=== PATIENT | male | born 1960 | race Caucasian/White ===

== ENCOUNTER 2016-10-31 03:37 | Emergency (ER) | payer OTHER ==
[2016-10-31 03:59] LABS: BILIRUBIN,URINE NEGATIVE (NEGATIVE); PH,URINE 5.5 PH (5.0-7.5)
[2016-10-31] MEDS ORDERED: SODIUM CHLORIDE 0.9% 1,000 ML IV ONE ×2 (03:59→04:00)
[2016-10-31] MEDS ORDERED: HYDROmorphone 1 MG/ML SYRINGE IVP STA (03:59)
[2016-10-31] MEDS ORDERED: ONDANSETRON 4 MG/2 ML VIAL IVP STA (03:59)
[2016-10-31] MEDS ORDERED: ONDANSETRON 4 MG/2 ML VIAL ONE (04:00)
[2016-10-31] MEDS ORDERED: HYDROmorphone 1 MG/ML SYRINGE ONE (04:00)
[2016-10-31 04:03] LABS: UA w/ MICROSCOPIC CHARGE YES
--- NOTE | 2016-10-31 04:05 | ED Physician Documentation ---
History of Present Illness - Stated complaint Stated Complaint: L SIDE PX - Chief complaint Chief Complaint: Abd Pain - Additonal information Additional information: 56-year-old male with a history of coronary disease, hypertension, and diabetes who presents with acute onset of left-sided abdominal pain earlier this evening. 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 He is finally woken up by the pain atApproximately 2 AM. The pain was in the left lower quadrant and would radiate to the left genital area. He noticed that his urine was quite dark at this time and had some difficulty in urinating. He has no prior history of nephro or ureteral lithiasis. He denies any fever or chills. There is no complaints of chest pain, shortness of breath, leg pain or swelling. Review of systems: For pertinent positive and negatives in the review of systems please see history of present illness. Otherwise all other systems have been reviewed and are negative. Dragon disclaimer: Parts of this medical record were created using voice recognition technology. Because of the inherent limitations of this system occasional same sounding word substitutions do occur and persist despite proofreading. Please read the document for context. Review of Systems Ten Systems: 10 systems reviewed and negative Constitutional: denies: Fever, Chills GI: reports: Abdominal Pain. denies: Abdominal Swelling, Nausea, Vomiting, Constipation, Diarrhea, Hematemesis : reports: Hesitancy, Hematuria PD PAST MEDICAL HISTORY - Past Medical History Past Medical History: Yes Cardiovascular: Hypertension, MS Endocrine/Autoimmune: Type 2 diabetes - Past Surgical History Past Surgical History: Yes Cardiovascular: CABG, Coronary stent - Present Medications Home Medications: Ambulatory Orders Medication Instructions Recorded Confirmed Fluticasone [Flonase] 1 spray INH BID 12/20/12 10/31/16 Lisinopril [Zestril] 2.5 mg PO DAILY 12/20/12 10/31/16 Loratadine [Claritin] 10 mg PO DAILY 12/20/12 10/31/16 Meloxicam 7.5 mg PO DAILY 12/20/12 10/31/16 Metformin HCl [Metformin HCl ER] 500 mg PO BID 12/20/12 10/31/16 Ranitidine HCl 150 mg PO BID 12/20/12 10/31/16 glipiZIDE [Glucotrol] 10 mg PO 0730 /04/13 07/16/17 Ondansetron Odt [Zofran] 4 mg TL Q6H PRN #10 tablet 10/31/16 Tamsulosin HCl [Flomax] 0.4 mg PO DAILY #7 cap.er.24h 10/31/16 oxyCODONE/ACET 5/325 [Percocet 5 1 each PO Q4-6H PRN #16 tablet 10/31/16 mg/325 mg] - Allergies Allergies/Adverse Reactions: Allergies Allergy/AdvReac Type Severity Reaction Status Date / Time No Known Drug Allergies Allergy Verified 10/31/16 03:43 - Social History Does the pt smoke?: No Smoking Status: Never smoker Does the pt drink ETOH?: No Does the pt have substance abuse?: No - Immunizations Immunizations are current?: Yes - POLST Patient has POLST: No PD ED PE NORMAL - General General: Alert and oriented X 3, No acute distress, Well developed/nourished - HEENT HEENT: Atraumatic, PERRL, EOMI - Neck Neck: No bony TTP - Cardiac Cardiac: RRR, No gallop - Respiratory Respiratory: No respiratory distress, Clear bilaterally - Abdomen Abdomen: Normal bowel sounds, Soft, Non tender, Non distended - Derm Derm: Normal color, Warm and dry - Extremities Extremities: No deformity, No tenderness to palpate, Normal ROM s pain - Neuro Neuro: Alert and oriented X 3, 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, No motor deficit, No sensory deficit - Psych Psych: Normal mood, Normal affect Results - Vitals Vitals: Vital Signs - 24 hr 10/31/16 10/31/16 10/31/16 03:40 05:21 05:25 Temperature 36.5 C 36.5 C Heart Rate 83 83 Respiratory 16 16 Rate Blood Pressure 148/99 H 148/99 H 126/79 O2 Saturation 97 97 Oxygen O2 Source Room air - Labs Labs: Laboratory Tests 10/31/16 10/31/16 10/31/16 03:45 04:03 04:03 WBC 10.1 RBC 4.22 L Hgb 12.9 L Hct 37.7 L MCV 89.4 MCH 30.5 MCHC 34.1 RDW 13.6 Plt Count 196 MPV 9.3 Neut # 7.0 H Lymph # 2.2 Carson # 0.7 Eos # 0.1 Baso # 0.0 Absolute Nucleated RBC 0.00 Nucleated RBCs 0.0 Sodium 138 Potassium 3.6 Chloride 103 Carbon Dioxide 26 Anion Gap 9.0 BUN 16 Creatinine 1.0 Estimated GFR (MDRD) 77 L Glucose 162 H Calcium 8.8 Urine Color DARK YELLOW Urine Clarity CLOUDY Urine pH 5.5 Ur Specific Shannon >=1.030 H Urine Protein 30 H Urine Glucose (UA) NEGATIVE Urine Ketones NEGATIVE Urine Occult Blood LARGE H Urine Nitrite NEGATIVE Urine Bilirubin NEGATIVE Urine Urobilinogen 0.2 (NORMAL) Ur Leukocyte Esterase NEGATIVE Urine RBC TNTC H Urine WBC 0-3 Ur Squamous Epith Cells RARE Squamous Urine Bacteria None Seen Urine Mucus Few Strands Ur Microscopic Review INDICATED Urine Culture Comments NOT INDICATED PD MEDICAL DECISION MAKING - ED course ED course: Patient is a 56-year-old man who has hypertension, diabetes and coronary disease who presented with a complaint of left-sided flank pain acutely. On examination he had pain but really no tenderness and also had hematuria so from the onset we suspected ureterolithiasis. He was given IV fluids pain and nausea medications as well as Flomax. CT scan shows a large stone at the left UVJ with hydronephrosis. He also has a couple other incidental stones in the left kidney. Clinically the patient is doing great. He has absolutely no pain at this point. He was advised of the size of the stone and also of or question of whether he will passed a stone or not. It is a large stone but is already worked its way almost into his bladder so he may be able to pass it on his own or perhaps not. He was given a copy and disc of the CT scan. He will be given pain and nausea medications as well as oral Flomax. We have given him a couple referrals to urologist in the [place] area and he understands that should he get worse and be unable to obtain a urologist that he should return here and we will assist him. He was advised to watch for signs and symptoms of infection including fever and if this should occur he should return to the emergency department immediately. Disposition: To home Clinical impression: 1. Ureterolithiasis left-sided hydronephrosis 7 mm at left UVJ Departure - Departure Disposition: 01 Home, Self Care Clinical Impression: Ureterolithiasis Condition: Good Instructions: ED Strainer Urine, ED Stone Renal W Colic Follow-Up: Casimiro Mixon MD [Physician No Access] - Casimiro Mixon MD [Physician No Access] - Prescriptions: Tamsulosin HCl [Flomax] 0.4 mg PO DAILY #7 cap.er.24h oxyCODONE/ACET 5/325 [Percocet 5 mg/325 mg] 1 each PO Q4-6H PRN #16 tablet PRN Reason: Pain Ondansetron Odt [Zofran] 4 mg TL Q6H PRN #10 tablet PRN Reason: Nausea / Vomiting Comments: Continue to stay well-hydrated. You have a large 7 mm stone on the left side. Is very close see her bladder and may or may not passOn its own. Please strain your urine to check for a passed stone. If you get worse please return otherwise we have given you a couple numbers for urologic follow-up
[2016-10-31 04:15] LABS: BASOPHILS % (AUTO) 0.4 %; EOSINOPHILS # (AUTO) 0.1 10^3/uL (0.0-0.7); HCT - HEMATOCRIT 37.7 % (42.0-52.0); HGB - HEMOGLOBIN 12.9 g/dL (14.0-18.0); LYMPHOCYTES # (AUTO) 2.2 10^3/uL (1.5-3.5); LYMPHOCYTES % (AUTO) 21.9 %; MEAN CORPUSCULAR HEMOGLOBIN 30.5 pg (27.0-31.0); MEAN CORPUSCULAR HGB CONC 34.1 g/dL (32.0-36.0); MEAN CORPUSCULAR VOLUME 89.4 fL (80.0-94.0); MEAN PLATELET VOLUME 9.3 fL (7.4-11.4); MONOCYTES # (AUTO) 0.7 10^3/uL (0.0-1.0); MONOCYTES % (AUTO) 6.8 %; NEUTROPHILS % (AUTO) 69.9 %; RED BLOOD COUNT 4.22 10^6/uL (4.70-6.10); RED CELL DISTRIBUTION WIDTH 13.6 % (12.0-15.0); UNCORRECTED WHITE BLOOD COUNT 10.1 x10^3/uL; WHITE BLOOD COUNT 10.1 x10^3/uL (4.8-10.8)
[2016-10-31 04:24] LABS: UR CULTURE IF IND NOT INDICATED; WBC,URINE 0-3 /HPF (0-3)
[2016-10-31 04:31] LABS: CALCIUM 8.8 mg/dL (8.5-10.3); POTASSIUM 3.6 mmol/L (3.5-5.0)
--- NOTE | 2016-10-31 04:36 | CT Preliminary Report ---
Exam: CT Abdomen/Pelvis W/O IMPRESSION: 1. Severe left hydroureteronephrosis due to an obstructing stone at the left UVJ measuring 7.2 mm. 2. Additional large lobulated stone within the left lower kidney measuring 16.4 x 12.9 x 11.9 mm. Thi s stone measures 1080 Hounsfield units in density. 3. Appendix is normal. No bowel obstruction. Mild distal diverticulosis without evidence of diverticu litis. [facility] SITE ID: [id number]
--- NOTE | 2016-10-31 04:39 | CT Report ---
EXAM: CT ABDOMEN AND PELVIS (CT KUB) EXAM DATE: 10/31/2016 04:28 AM. CLINICAL HISTORY: Left sided abdominal pain. Sudden onset. Difficulty urinating. COMPARISONS: None. TECHNIQUE: Routine axial helical CT imaging was performed through the abdomen and pelvis without IV c ontrast. Reconstructions: Coronal and sagittal. In accordance with CT protocol optimization, one or more of the following dose reduction techniques w ere utilized for this exam: automated exposure control, adjustment of mA and/or KV based on patient s ize, or use of iterative reconstructive technique. FINDINGS: Right Kidney/Ureter: No stones. No hydronephrosis or hydroureter. Multiple right-sided peripelvic cys ts are present. No definite renal mass within the confines of a non-contrast exam. Left Kidney/Ureter: There is a large lobe with a distal within the left lower kidney measuring 16.4 x 12.9 x 11.9 mm (image 78 series 3). This stone measures 1080 Hounsfield units in density. Dear left hydroureteronephrosis is present, due to an obstructing left UVJ stone measuring 7.2 mm (image 138 se yeimi 3). No definite renal mass within the confines of a non-contrast exam. Abdominal Solid Organs: Abdominal parenchymal organs are without significant abnormality within the c onfines of a noncontrast exam. Bowel: No evidence of bowel obstruction. Appendix: Normal. Lymph Nodes: No definite pathologic lymphadenopathy. Fluid: No significant ascites. Vasculature: Normal caliber aorta. Pelvis: No bladder stones. Visualized pelvic organs are without significant abnormality within the co nfines of a noncontrast exam. Bones: No definite suspicious bony lesions demonstrated. There is moderate multilevel degenerative ch angie within the spine. Lower Chest: No significant lung base consolidation or effusion. Median sternotomy. IMPRESSION: 1. Severe left hydroureteronephrosis due to an obstructing stone at the left UVJ measuring 7.2 mm. 2. Additional large lobulated stone within the left lower kidney measuring 16.4 x 12.9 x 11.9 mm. Thi s stone measures 1080 Hounsfield units in density. 3. Appendix is normal. No bowel obstruction. Mild distal diverticulosis without evidence of diverticu litis. [facility] Referring Provider Line: [phone] SITE ID: [id number]
[2016-10-31] MEDS ORDERED: KETOROLAC 30 MG/ML VIAL IVP STA (05:00)
[2016-10-31] MEDS ORDERED: KETOROLAC 30 MG/ML VIAL ONE (05:04)
[2016-10-31] MEDS ORDERED: TAMSULOSIN 0.4 MG CAPSULE PO STA (05:14)
[2016-10-31] MEDS ORDERED: TAMSULOSIN 0.4 MG CAPSULE ONE (05:18)
[2016-10-31 07:04] VITALS: BP 129/82
== END 2016-10-31 07:17 | disposition home or self-care (01) ==
LOC: ED 03:37
DX: N13.2 Hydronephrosis with renal and ureteral calculous obstruction (principal); I10 Essential (primary) hypertension; E11.9 Type 2 diabetes mellitus without complications; Z79.84 Long term (current) use of oral hypoglycemic drugs; I25.10 Atherosclerotic heart disease of native coronary artery without angina pectoris; I25.2 Old myocardial infarction; Z95.1 Presence of aortocoronary bypass graft; Z95.5 Presence of coronary angioplasty implant and graft
CPT/HCPCS: 36415; 74176; 80048; 81001; 85025; 96361; 96374; 96375; 99284; A9270; J1170; 81003; 87086

== ENCOUNTER 2016-11-14 18:57 | Emergency (ER) | payer OTHER ==
[2016-11-14] MEDS ORDERED: SODIUM CHLORIDE 0.9% 1,000 ML IV ONE (19:06)
[2016-11-14] MEDS ORDERED: ONDANSETRON 4 MG/2 ML VIAL IVP STA (19:06)
[2016-11-14] MEDS ORDERED: HYDROmorphone 1 MG/ML SYRINGE IVP STA (19:06)
[2016-11-14] MEDS ORDERED: KETOROLAC 60 MG/2 ML VIAL IVP STA (19:06)
--- NOTE | 2016-11-14 19:08 | ED Physician Documentation ---
PD HPI ABD PAIN - Stated complaint Stated Complaint: KIDNEY STONES - Chief complaint Chief Complaint: Abd Pain - History obtained from History obtained from: Patient - History of Present Illness Timing - onset: Other (He was seen here on the 16 of this month and diagnosed with renal colic, he had a 7.6 mm stone in the left ureter which he says past and he has not had pain until yesterday again, there were other left infrarenal stones. Pain is in the left flank radiating to the left groin and he is mildly nauseous and feels like he cannot sit down. Because the pain was gone he did not follow up with urologist, also the [facility] was quite busy and unable to provide him with a referral he says.) Review of Systems Constitutional: denies: Fever, Chills GI: reports: Nausea. denies: Vomiting : reports: Frequency. denies: Dysuria Musculoskeletal: denies: Neck pain, Back pain PD PAST MEDICAL HISTORY - Past Medical History Cardiovascular: Hypertension, ID Endocrine/Autoimmune: Type 2 diabetes - Past Surgical History Past Surgical History: Yes Cardiovascular: CABG, Coronary stent - Present Medications Home Medications: Ambulatory Orders Medication Instructions Recorded Confirmed Fluticasone [Flonase] 1 spray INH BID 12/20/12 11/14/16 Lisinopril [Zestril] 2.5 mg PO DAILY 12/20/12 11/14/16 Loratadine [Claritin] 10 mg PO DAILY 12/20/12 11/14/16 Meloxicam 7.5 mg PO DAILY 12/20/12 11/14/16 Metformin HCl [Metformin HCl ER] 500 mg PO BID 12/20/12 11/14/16 Ranitidine HCl 150 mg PO BID 12/20/12 11/14/16 glipiZIDE [Glucotrol] 10 mg PO 30 12/20/12 11/14/16 Ondansetron Odt [Zofran] 4 mg TL Q6H PRN #10 tablet 10/31/16 11/14/16 Tamsulosin HCl [Flomax] 0.4 mg PO DAILY #7 cap.er.24h 10/31/16 11/14/16 oxyCODONE/ACET 5/325 [Percocet 5 1 each PO Q4-6H PRN #16 tablet 10/31/16 mg/325 mg] Nitroglycerin [Nitromist] 1 spray PRN PRN 11/14/16 11/14/16 Oxycodone HCl/Acetaminophen 1 - 2 tab PO Q4H PRN #15 tablet 11/14/16 [Percocet 5-325 mg Tablet] - Allergies Allergies/Adverse Reactions: Allergies Allergy/AdvReac Type Severity Reaction Status Date / Time No Known Drug Allergies Allergy Verified 10/31/16 03:43 - Social History Does the pt smoke?: No Smoking Status: Never smoker Does the pt drink ETOH?: No Does the pt have substance abuse?: No - Immunizations Immunizations are current?: Yes - POLST Patient has POLST: No PD ED PE NORMAL - Vitals Vital signs reviewed: Yes (Hypertensive) - General General: Alert and oriented X 3, Other (Pacing, uncomfortable) - Abdomen Abdomen: Soft, Non tender - Back Back: No CVA TTP, No spinal TTP - Neuro Neuro: Alert and oriented X 3, Normal speech - Psych Psych: Normal mood, Normal affect Results - Vitals Vitals: Vital Signs - 24 hr 11/14/16 19:00 Temperature 36.8 C Heart Rate 99 Respiratory 20 Rate Blood Pressure 177/106 H O2 Saturation 97 Oxygen O2 Source Room air - Labs Labs: Laboratory Tests 11/14/16 11/14/16 11/14/16 19:09 19:35 19:35 WBC 13.5 H RBC 4.23 L Hgb 13.1 L Hct 38.6 L MCV 91.2 MCH 31.0 MCHC 34.0 RDW 13.2 Plt Count 230 MPV 9.9 Neut # 10.9 H Lymph # 1.6 Bracken # 0.8 Eos # 0.1 Baso # 0.1 Absolute Nucleated RBC 0.00 Nucleated RBCs 0.0 Sodium 139 Potassium 4.1 Chloride 108 Carbon Dioxide 23 Anion Gap 8.0 BUN 15 Creatinine 1.2 Estimated GFR (MDRD) 63 L Glucose 207 H Calcium 8.9 Urine Color YELLOW Urine Clarity CLEAR Urine pH 5.5 Ur Specific Mertens >=1.030 H Urine Protein NEGATIVE Urine Glucose (UA) 100 H Urine Ketones NEGATIVE Urine Occult Blood LARGE H Urine Nitrite NEGATIVE Urine Bilirubin NEGATIVE Urine Urobilinogen 0.2 (NORMAL) Ur Leukocyte Esterase NEGATIVE Urine RBC 11-25 H Urine WBC 0-3 Ur Squamous Epith Cells FEW Squamous Urine Bacteria None Seen Ur Microscopic Review INDICATED Urine Culture Comments NOT INDICATED PD MEDICAL DECISION MAKING - ED course ED course: 56-year-old gentleman with known renal colic presents with exacerbation of same , diagnosis is not in question given classic history and recent CT findings of same.Pain was completely gone after single round of medications here. Departure - Departure Disposition: 01 Home, Self Care Clinical Impression: Ureterolithiasis Condition: Good Record reviewed to determine appropriate education?: Yes Instructions: ED Stone Renal W Colic Prescriptions: Oxycodone HCl/Acetaminophen [Percocet 5-325 mg Tablet] 1 - 2 tab PO Q4H PRN #15 tablet PRN Reason: Pain Comments: Talk with your primary care physician tomorrow about her urologic referral. Return if worse. Your blood pressure was elevated today on check into the emergency department. This does not mean that you have hypertension, it is a common phenomenon to come to the emergency department and have elevated blood pressure. I recommend that she see her primary care physician within the week to have it rechecked when you are feeling better. Do not drink or drive while taking narcotic pain medication. Note that many narcotic pain relievers also contain Tylenol/acetaminophen. Please ensure that your total dose of acetaminophen from all sources does not exceed 3 g (3000 mg) per day. You may get constipated while on this medication. Take a stool softener such as Colace twice a day while you are on it. Also add an [id number] laxative such as senna or MiraLAX on any day that you do not have a bowel movement. If you received a narcotic pain medication or sedative while in the emergency department, do not drive for the next 24 hours.
[2016-11-14 19:15] LABS: BILIRUBIN,URINE NEGATIVE (NEGATIVE); PH,URINE 5.5 PH (5.0-7.5)
[2016-11-14 19:26] LABS: UA w/ MICROSCOPIC CHARGE YES
[2016-11-14 19:27] LABS: WBC,URINE 0-3 /HPF (0-3)
[2016-11-14 19:28] LABS: UR CULTURE IF IND NOT INDICATED
[2016-11-14] MEDS ORDERED: ONDANSETRON 4 MG/2 ML VIAL ONE (19:39)
[2016-11-14] MEDS ORDERED: HYDROmorphone 1 MG/ML SYRINGE ONE (19:39)
[2016-11-14] MEDS ORDERED: KETOROLAC 30 MG/ML VIAL ONE (19:39)
[2016-11-14 19:46] LABS: BASOPHILS # (AUTO) 0.1 10^3/uL (0.0-0.1); BASOPHILS % (AUTO) 0.5 %; EOSINOPHILS # (AUTO) 0.1 10^3/uL (0.0-0.7); EOSINOPHILS % (AUTO) 0.8 %; HCT - HEMATOCRIT 38.6 % (42.0-52.0); HGB - HEMOGLOBIN 13.1 g/dL (14.0-18.0); LYMPHOCYTES # (AUTO) 1.6 10^3/uL (1.5-3.5); LYMPHOCYTES % (AUTO) 11.9 %; MEAN CORPUSCULAR VOLUME 91.2 fL (80.0-94.0); MEAN PLATELET VOLUME 9.9 fL (7.4-11.4); MONOCYTES # (AUTO) 0.8 10^3/uL (0.0-1.0); MONOCYTES % (AUTO) 5.6 %; NEUTROPHILS # (AUTO) 10.9 10^3/uL (1.5-6.6); NEUTROPHILS % (AUTO) 81.2 %; RED BLOOD COUNT 4.23 10^6/uL (4.70-6.10); RED CELL DISTRIBUTION WIDTH 13.2 % (12.0-15.0); UNCORRECTED WHITE BLOOD COUNT 13.5 x10^3/uL; WHITE BLOOD COUNT 13.5 x10^3/uL (4.8-10.8)
[2016-11-14 19:54] LABS: CALCIUM 8.9 mg/dL (8.5-10.3); CREATININE 1.2 mg/dL (0.6-1.2); POTASSIUM 4.1 mmol/L (3.5-5.0)
[2016-11-14] MEDS ORDERED: oxyCODONE/ACET 5/325 Prepack 4 PO STA (20:06)
[2016-11-14] MEDS ORDERED: oxyCODONE/ACET 5/325 Prepack 4 PO ONE (20:15)
[2016-11-14 20:41] VITALS: BP 126/80
== END 2016-11-14 20:48 | disposition home or self-care (01) ==
LOC: ED 18:57
DX: N20.1 Calculus of ureter (principal); I10 Essential (primary) hypertension; I25.2 Old myocardial infarction; E11.9 Type 2 diabetes mellitus without complications; Z95.1 Presence of aortocoronary bypass graft; Z95.5 Presence of coronary angioplasty implant and graft; Z79.84 Long term (current) use of oral hypoglycemic drugs
CPT/HCPCS: 36415; 80048; 81001; 85025; 96374; 96375; 99284; J1170; 81003; 87086

== ENCOUNTER 2016-11-22 13:09 | Outpatient (CLI) | payer OTHER | END 2016-11-22 13:10 | disposition home or self-care (01) | LOC: SC 13:09 | PROVIDERS: ATTEND Nurse Practitioner Family | DX: G47.33 Obstructive sleep apnea (adult) (pediatric) (principal) | CPT/HCPCS: 99212; 99214 ==

== ENCOUNTER 2016-12-11 14:24 | Outpatient (CLI) | payer OTHER ==
--- NOTE | 2016-12-11 22:13 | Ultrasound Report ---
EXAM: RENAL ULTRASOUND EXAM DATE: 12/11/2016 03:34 p.m. CLINICAL HISTORY: Renal calculi. COMPARISON: 10/31/2016. TECHNIQUE: Real-time scanning was performed with static images obtained. FINDINGS: Right Kidney: 12 x 5.6 x 6 cm. Multiple right parapelvic cysts. No renal mass, stones or hydronephros is. Left Kidney: 12.6 x 6.7 x 6 cm. Moderate left hydronephrosis is noted. No renal stones noted. No jelani l mass. Bladder: Left ureteral jet not seen. Normal right ureteral jet. The prevoid bladder volume was 45 cc. The postvoid bladder volume was 0.75 cc. Twinkle artifact in the left pelvis near the bladder could represent the patient's distal left ureter al stone. This measures up to 1.1 cm. Finding is best seen on the prevoid imaging. No stone in the bl adder. IMPRESSION: 1. Left ureteral jet not seen. Normal right ureteral jet. 1.1 cm echogenic focus in the left pelvis n ear the bladder could represent a ureteral stone. 2. At least moderate left hydronephrosis. No left renal stone. No left renal mass. 3. No right renal stone, mass or hydronephrosis. Persistent parapelvic cysts. [facility] Referring Provider Line: [phone] SITE ID: [id number]
== END 2016-12-11 14:25 | disposition home or self-care (01) ==
LOC: DI 14:24
PROVIDERS: ATTEND Physician Assistant
DX: N20.0 Calculus of kidney (principal); N13.30 Unspecified hydronephrosis
CPT/HCPCS: 76770

== ENCOUNTER 2017-01-19 22:20 | Emergency (ER) | payer OTHER ==
--- NOTE | 2017-01-19 22:35 | ED Physician Documentation ---
PD MANI HEENT - Stated complaint Stated Complaint: EAR PX - Chief complaint Chief Complaint: Heent - History obtained from History obtained from: Patient - History of Present Illness Timing - onset: How many weeks ago (04/19) Timing - duration: Weeks (04/19) Timing - details: Gradual onset, Still present (he had left facial pain from ear area to lip/nose abruptly stopping at midline. No rash. Does have feeling of pain left neck and behind left ear with adenopathy left ear area. Seen by PMD and Dx with possible shingles (was 5 days after onset without rash, but character of it is very shingles-like). Patient says he was improved while on the antiviral. Finished those 2 days ago and is having the pain intermittently again. He also noted some left chest pain this afternoon for 1-2 hours. He says he has had VT in the past and his symptoms were chest pain to left neck/face, so is worried about heart process.), Waxing and waning Location: Left ear, Other (left face intermittent burning aching pain) Associated symptoms: Swollen nodes (left preauricular). No: Fever, Congestion, Facial swelling Recently seen: Clinic (7 days ago) Review of Systems Constitutional: reports: Myalgias. denies: Fever, Chills Nose: denies: Rhinorrhea / runny nose, Congestion Throat: denies: Sore throat Respiratory: denies: Cough GI: denies: Nausea, Vomiting, Diarrhea Skin: denies: Rash, Lesions Neurologic: denies: Focal weakness, Numbness, Headache PD PAST MEDICAL HISTORY - Past Medical History Cardiovascular: Hypertension, VT Neuro: None Endocrine/Autoimmune: Type 2 diabetes - Past Surgical History Past Surgical History: Yes Cardiovascular: CABG, Coronary stent - Present Medications Home Medications: Ambulatory Orders Medication Instructions Recorded Confirmed Fluticasone [Flonase] 1 spray INH BID 12/20/12 01/19/17 Lisinopril [Zestril] 2.5 mg PO DAILY 12/20/12 01/19/17 Loratadine [Claritin] 10 mg PO DAILY 12/20/12 01/19/17 Meloxicam 7.5 mg PO DAILY 12/20/12 01/19/17 Metformin HCl [Metformin HCl ER] 500 mg PO BID 12/20/12 01/19/17 Ranitidine HCl 150 mg PO BID 12/20/12 01/19/17 glipiZIDE [Glucotrol] 10 mg PO 0730 12/20/12 01/19/17 Ondansetron Odt [Zofran] 4 mg TL Q6H PRN #10 tablet 10/31/16 01/19/17 Tamsulosin HCl [Flomax] 0.4 mg PO DAILY #7 cap.er.24h 10/31/16 01/19/17 oxyCODONE/ACET 5/325 [Percocet 5 1 each PO Q4-6H PRN #16 tablet 10/31/16 mg/325 mg] Nitroglycerin [Nitromist] 1 spray PRN PRN 11/14/16 01/19/17 Oxycodone HCl/Acetaminophen 1 - 2 tab PO Q4H PRN #15 tablet 11/14/16 01/19/17 [Percocet 5-325 mg Tablet] Acyclovir 400 mg PO 5XD #25 tablet 01/19/17 Dexamethasone [Decadron] 4 mg PO DAILY #5 tablet 01/19/17 - Allergies Allergies/Adverse Reactions: Allergies Allergy/AdvReac Type Severity Reaction Status Date / Time No Known Drug Allergies Allergy Verified 01/19/17 22:30 - Social History Does the pt smoke?: No Smoking Status: Never smoker Does the pt drink ETOH?: No Does the pt have substance abuse?: No - Family History Family history: reports: Non contributory - Immunizations Immunizations are current?: Yes - POLST Patient has POLST: No PD ED PE NORMAL - Vitals Vital signs reviewed: Yes - General General: Alert and oriented X 3, No acute distress, Well developed/nourished - HEENT HEENT: PERRL, Ears normal, Pharynx benign, Dentition benign - Neck Neck: Supple, no meningeal sign, No adenopathy - Cardiac Cardiac: RRR, No murmur - Respiratory Respiratory: Clear bilaterally - Abdomen Abdomen: Soft, Non tender - Derm Derm: Normal color, Warm and dry - Extremities Extremities: No tenderness to palpate, No edema, No calf tenderness / cord - Neuro Neuro: Alert and oriented X 3, 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 No: ST elevation c/w ischemia, ST depression - Labs Labs: Laboratory Tests 01/19/17 01/19/17 01/19/17 22:54 22:54 22:54 WBC 7.6 RBC 4.20 L Hgb 13.0 L Hct 37.8 L MCV 90.1 MCH 31.0 MCHC 34.4 RDW 13.5 Plt Count 231 MPV 9.3 Neut # 4.1 Lymph # 2.6 Tyrrell # 0.7 Eos # 0.1 Baso # 0.0 Absolute Nucleated RBC 0.01 Nucleated RBC % 0.1 ESR 8 Sodium 138 Potassium 4.1 Chloride 103 Carbon Dioxide 26 Anion Gap 9.0 BUN 15 Creatinine 1.1 Estimated GFR (MDRD) 69 L Glucose 164 H Glycated Hemoglobin Estim Average Glucose Calcium 9.4 Total Bilirubin 0.7 AST 22 ALT 25 Alkaline Phosphatase 66 Troponin I Total Protein 7.2 Albumin 4.3 Globulin 2.9 Albumin/Globulin Ratio 1.5 Lipase 30 01/19/17 01/19/17 22:54 22:54 WBC RBC Hgb Hct MCV MCH MCHC RDW Plt Count MPV Neut # Lymph # Tyrrell # Eos # Baso # Absolute Nucleated RBC Nucleated RBC % ESR Sodium Potassium Chloride Carbon Dioxide Anion Gap BUN Creatinine Estimated GFR (MDRD) Glucose Glycated Hemoglobin 6.6 H Estim Average Glucose 143 H Calcium Total Bilirubin AST ALT Alkaline Phosphatase Troponin I < 0.04 Total Protein Albumin Globulin Albumin/Globulin Ratio Lipase PD MEDICAL DECISION MAKING - ED course Complexity details: reviewed results, considered differential (character and location of pain seems c/w neuritis, so consider shingles without rash. Had improved while on antiviral. Consider another course of antiviral along with steroid (he says his sugars area usually okay). The chest pressure today is not present here in ED. Can get ECG and Troponin to evaluate for AMI. ), d/w patient Departure - Departure Disposition: 01 Home, Self Care Clinical Impression: Facial pain, acute Condition: Stable Record reviewed to determine appropriate education?: Yes Follow-Up: KATRINA RILEY MD [Primary Care Provider] - Prescriptions: Acyclovir 400 mg PO 5XD #25 tablet Dexamethasone [Decadron] 4 mg PO DAILY #5 tablet Comments: Your EKG and troponin are normal so no signs of heart attack going on. The character of the facial pain sound like a shingles type pain in the did not always get a rash with it. Since it improved while on the antiviral and now back again, I would repeat the antiviral medication for 5 more days and also combined with an anti-inflammatory. Use Tylenol or ibuprofen if needed for pain. Continue other usual medications. His sugars will likely elevate some while on the steroid anti-inflammatory but should resume to normal once you are done. Recheck with your primary care if not improving over the next few days.
[2017-01-19] MEDS: ACETAMINOPHEN 325 MG TABLET PO STA (22:53)
[2017-01-19] MEDS: ASPIRIN CHEW 81 MG TABLET PO STA (22:53)
[2017-01-19] MEDS ORDERED: ASPIRIN CHEW 81 MG TABLET ONE (22:55)
[2017-01-19] MEDS ORDERED: ACETAMINOPHEN 325 MG TABLET PO ONE (22:55)
[2017-01-19 23:06] LABS: BASOPHILS % (AUTO) 0.6 %; EOSINOPHILS # (AUTO) 0.1 10^3/uL (0.0-0.7); EOSINOPHILS % (AUTO) 1.7 %; HCT - HEMATOCRIT 37.8 % (42.0-52.0); LYMPHOCYTES # (AUTO) 2.6 10^3/uL (1.5-3.5); LYMPHOCYTES % (AUTO) 34.3 %; MEAN CORPUSCULAR HGB CONC 34.4 g/dL (32.0-36.0); MEAN CORPUSCULAR VOLUME 90.1 fL (80.0-94.0); MEAN PLATELET VOLUME 9.3 fL (7.4-11.4); MONOCYTES # (AUTO) 0.7 10^3/uL (0.0-1.0); MONOCYTES % (AUTO) 9.6 %; NEUTROPHILS # (AUTO) 4.1 10^3/uL (1.5-6.6); NEUTROPHILS % (AUTO) 53.8 %; NUCLEATED RED BLOOD CELLS AUTO 0.1 /100WBC; RED CELL DISTRIBUTION WIDTH 13.5 % (12.0-15.0); UNCORRECTED WHITE BLOOD COUNT 7.6 x10^3/uL; WHITE BLOOD COUNT 7.6 x10^3/uL (4.8-10.8)
[2017-01-19 23:17] LABS: ALBUMIN/GLOBULIN RATIO 1.5 (1.0-2.2); BILIRUBIN,TOTAL 0.7 mg/dL (0.2-1.0); CALCIUM 9.4 mg/dL (8.5-10.3); CREATININE 1.1 mg/dL (0.6-1.2); POTASSIUM 4.1 mmol/L (3.5-5.0); TOTAL PROTEIN 7.2 g/dL (6.7-8.2)
[2017-01-19 23:19] LABS: HEMOGLOBIN A1C 0.7 g/dL
[2017-01-19] MEDS: DEXAMETHASONE 10 MG/ML VIAL PO STA (23:47)
[2017-01-19] MEDS: ACYCLOVIR 200 MG CAPSULE PO STA (23:47)
[2017-01-19] MEDS ORDERED: ACYCLOVIR 200 MG CAPSULE PO ONE (23:50)
[2017-01-19] MEDS ORDERED: DEXAMETHASONE 10 MG/ML VIAL ONE (23:50)
[2017-01-19 23:54] VITALS: BP 169/79
== END 2017-01-19 23:54 | disposition home or self-care (01) ==
LOC: ED 22:20
DX: G50.1 Atypical facial pain (principal); R94.31 Abnormal electrocardiogram [ECG] [EKG]; I10 Essential (primary) hypertension; I25.2 Old myocardial infarction; E11.9 Type 2 diabetes mellitus without complications; Z79.84 Long term (current) use of oral hypoglycemic drugs; Z95.1 Presence of aortocoronary bypass graft; Z95.5 Presence of coronary angioplasty implant and graft
CPT/HCPCS: 36415; 80053; 83036; 83690; 84484; 85025; 85651; 93005; 99283

== ENCOUNTER 2017-11-09 13:24 | Outpatient (CLI) | payer OTHER | END 2017-11-09 13:25 | disposition home or self-care (01) | LOC: SC 13:24 | PROVIDERS: ATTEND Nurse Practitioner Family | DX: G47.33 Obstructive sleep apnea (adult) (pediatric) (principal) | CPT/HCPCS: 99212; 99214 ==

== ENCOUNTER 2018-01-16 13:23 | Outpatient (CLI) | payer OTHER | END 2018-01-16 13:24 | disposition home or self-care (01) | LOC: SC 13:23 | PROVIDERS: ATTEND Nurse Practitioner Family | DX: G47.33 Obstructive sleep apnea (adult) (pediatric) (principal) | CPT/HCPCS: 99212; 99214 ==

== ENCOUNTER 2018-02-16 10:23 | Outpatient (CLI) | payer OTHER | END 2018-02-16 10:24 | disposition home or self-care (01) | LOC: SC 10:23 | PROVIDERS: ATTEND Nurse Practitioner Family | DX: G47.33 Obstructive sleep apnea (adult) (pediatric) (principal) | CPT/HCPCS: 99212; 99214 ==

== ENCOUNTER 2018-10-15 09:19 | Outpatient (CLI) | payer OTHER ==
--- NOTE | 2018-10-16 13:31 | Ultrasound Report ---
Reason: ANEURYSM OF ARTERY OF UPPER EXTREMITY Procedure Date: 10/15/2018 Accession Number: [id number] / [id number] Procedure: US - Duplex Ext Veins Right CPT Code: FULL RESULT: EXAM: RIGHT UPPER EXTREMITY VENOUS ULTRASOUND EXAM DATE: 10/15/2018 11:42 AM. CLINICAL HISTORY: ANEURYSM OF ARTERY OF UPPER EXTREMITY. COMPARISON: None. TECHNIQUE: Real-time sonographic vascular imaging was performed by the reconsignment clerk through the upper extremity utilizing both color-flow and Doppler spectral analysis. Multiple personal banking representative static images were saved for review. FINDINGS: Right side Internal Jugular Vein (IJV): Normal. Subclavian Vein (SCV): No aneurysm. Mildly ectatic appearance with turbulent blood flow. Axillary Vein : Posterior nonocclusive thrombus. Cephalic Vein (superficial vein): Normal. Basilic Vein (superficial vein): Normal. Brachial Vein: Normal. Other: None. IMPRESSION: 1.Ectatic appearance right subclavian vein without discrete aneurysm formation. 2. Small amount of nonocclusive thrombus right axillary vein. RADIA
== END 2018-10-15 09:20 | disposition home or self-care (01) ==
LOC: DI 09:19
PROVIDERS: ATTEND Internal Medicine
DX: I82.A11 Acute embolism and thrombosis of right axillary vein (principal); I86.8 Varicose veins of other specified sites

== ENCOUNTER 2019-02-16 21:30 | Emergency (ER) | payer OTHER ==
--- NOTE | 2019-02-16 21:51 | ED Physician Documentation ---
PD HPI ABD PAIN - Stated complaint Stated Complaint: LT FLANK PX - Chief complaint Chief Complaint: General - History obtained from History obtained from: Patient - History of Present Illness Timing - onset: Enter time (17:00), Today Timing - duration: Hours Timing - details: Abrupt onset Pain level now: 10 Quality: Pain Location: Other (left flank) Improved by: Other (no ameliorating factors) Worsened by: Other (no exacerbating factors) Associated symptoms: Nausea. No: Fever, Vomiting Similar symptoms before: Diagnosis (renal colic) Recently seen: Not recently seen Review of Systems Constitutional: reports: Reviewed and negative Cardiac: reports: Reviewed and negative Respiratory: reports: Reviewed and negative GI: reports: Abdominal Pain (left flank), Nausea. denies: Vomiting : denies: Dysuria, Frequency Musculoskeletal: reports: Back pain PD PAST MEDICAL HISTORY - Past Medical History Cardiovascular: Hypertension, [place] Endocrine/Autoimmune: Type 2 diabetes - Past Surgical History Past Surgical History: Yes Cardiovascular: CABG, Coronary stent - Present Medications Home Medications: Ambulatory Orders Medication Instructions Recorded Confirmed Fluticasone [Flonase] 1 spray INH BID 12/20/12 01/19/17 Lisinopril [Zestril] 2.5 mg PO DAILY 12/20/12 01/19/17 Loratadine [Claritin] 10 mg PO DAILY 12/20/12 01/19/17 Meloxicam 7.5 mg PO DAILY 12/20/12 01/19/17 Metformin HCl [Metformin HCl ER] 500 mg PO BID 12/20/12 01/19/17 glipiZIDE [Glucotrol] 10 mg PO 0730 12/20/12 01/19/17 raNITIdine HCl [Ranitidine HCl] 150 mg PO BID 12/20/12 01/19/17 Ondansetron Odt [Zofran] 4 mg TL Q6H PRN #10 tablet 10/31/16 01/19/17 Tamsulosin HCl [Flomax] 0.4 mg PO DAILY #7 cap.er.24h 10/31/16 01/19/17 oxyCODONE/ACET 5/325 [Percocet 5 1 each PO Q4-6H PRN #16 tablet 10/31/16 01/19/17 mg/325 mg] Nitroglycerin [Nitromist] 1 spray PRN PRN 11/14/16 01/19/17 Oxycodone HCl/Acetaminophen 1 - 2 tab PO Q4H PRN #15 tablet 11/14/16 01/19/17 [Percocet 5-325 mg Tablet] Acyclovir 400 mg PO 5XD #25 tablet 01/19/17 dexAMETHasone [Decadron] 4 mg PO DAILY #5 tablet 01/19/17 Ondansetron Odt [Zofran] 4 mg TL Q6H PRN #10 tablet 02/17/19 Oxycodone HCl/Acetaminophen 1 - 2 each PO Q6H PRN #20 tablet 02/17/19 [Percocet 5-325 mg Tablet] Tamsulosin [Flomax] 0.4 mg PO DAILY #10 capsule 02/17/19 - Allergies Allergies/Adverse Reactions: Allergies Allergy/AdvReac Type Severity Reaction Status Date / Time No Known Drug Allergies Allergy Verified 02/16/19 21:45 - Social History Does the pt smoke?: No Smoking Status: Never smoker Does the pt drink ETOH?: No Does the pt have substance abuse?: No - Immunizations Immunizations are current?: Yes - POLST Patient has POLST: No PD ED PE NORMAL - Vitals Vital signs reviewed: Yes - General General: Alert and oriented X 3, Well developed/nourished, Other (appears to be in waxing and waning painful distress) - HEENT HEENT: Moist mucous membranes - Cardiac Cardiac: RRR, No murmur - Respiratory Respiratory: No respiratory distress, Clear bilaterally - Abdomen Abdomen: Soft, Non tender - Back Back: No CVA TTP Results - Vitals Vitals: Oxygen O2 Source Room air - Labs Labs: Microbiology 02/16/19 21:45 Urine Culture - Final Urine,Clean Catch Less Than 10,000 COLONIES/ML UROGENITAL MENG Laboratory Tests 02/16/19 21:45 Urine Color YELLOW Urine Clarity HAZY Urine pH 5.5 Ur Specific [place] >=1.030 H Urine Protein TRACE Urine Glucose (UA) 100 H Urine Ketones NEGATIVE Urine Occult Blood LARGE H Urine Nitrite NEGATIVE Urine Bilirubin NEGATIVE Urine Urobilinogen 0.2 (NORMAL) Ur Leukocyte Esterase NEGATIVE Urine RBC 11-25 H Urine WBC 0-3 Ur Squamous Epith Cells FEW Squamous Urine Crystals -25 Ca Oxalate Urine Bacteria Moderate H Ur Microscopic Review INDICATED Urine Culture Comments INDICATED - Rads (name of study) CT A/P Radiology: Prelim report reviewed, See rad report PD MEDICAL DECISION MAKING - ED course Complexity details: reviewed results, re-evaluated patient, considered differential, d/w patient, d/w family Departure - Departure Disposition: 01 Home, Self Care Clinical Impression: Ureterolithiasis Condition: Good Instructions: ED Stone Renal W Colic Follow-Up: [facility] [Provider Group] Prescriptions: Ondansetron Odt [Zofran] 4 mg TL Q6H PRN #10 tablet PRN Reason: Nausea / Vomiting Oxycodone HCl/Acetaminophen [Percocet 5-325 mg Tablet] 1 - 2 each PO Q6H PRN #20 tablet PRN Reason: pain Tamsulosin [Flomax] 0.4 mg PO DAILY #10 capsule Comments: Contact the office of Dr. Morgan ([facility]) after 9 AM on Tuesday to arrange follow-up. [address] [place] [id number] Discharge Date/Time: 02/17/19 02:04
[2019-02-16 21:54] LABS: BILIRUBIN,URINE NEGATIVE (NEGATIVE); GLUCOSE, URINE (UA) 100 mg/dL (NEGATIVE); KETONES,URINE (UA) NEGATIVE (NEGATIVE); LEUKOCYTE ESTERASE, URINE NEGATIVE (NEGATIVE); NITRITE,URINE NEGATIVE (NEGATIVE); OCCULT BLOOD,URINE LARGE (NEGATIVE); PH,URINE 5.5 PH (5.0-7.5); PROTEIN,URINE TRACE mg/dL (NEGATIVE); UROBILINOGEN,URINE 0.2 (NORMAL) E.U./dL (NORMAL)
[2019-02-16 22:06] LABS: CLARITY,URINE HAZY (CLEAR)
[2019-02-16] MEDS ORDERED: ONDANSETRON ODT 4 MG TABLET TL STA (22:14)
[2019-02-16] MEDS ORDERED: HYDROmorphone 1 MG/ML CARPUJECT IM STA ×2 (22:14→22:46)
[2019-02-16 22:24] LABS: BACTERIA,URINE Moderate /HPF (None Seen); CRYSTALS,URINE 11-25 Ca Oxalate /LPF; SQUAMOUS EPITHELIAL CELL,UR FEW Squamous (<= Few)
[2019-02-16] MEDS ORDERED: TAMSULOSIN 0.4 MG CAPSULE PO STA (22:46)
[2019-02-16] MEDS ORDERED: KETOROLAC 60 MG/2 ML VIAL IM STA (22:46)
--- NOTE | 2019-02-16 22:47 | CT Report ---
Reason: left flank pain Procedure Date: 02/16/2019 Accession Number: [id number] / [id number] Procedure: CT - Abdomen/Pelvis WO CPT Code: Final Report FULL RESULT: EXAM: CT ABDOMEN AND PELVIS (CT KUB) EXAM DATE: 02/16/2019 10:34 PM. CLINICAL HISTORY: Left flank pain. COMPARISONS: ABDOMEN/PELVIS W/O 10/31/2016 4:17 AM. TECHNIQUE: Routine axial helical CT imaging was performed through the abdomen and pelvis without IV contrast. Reconstructions: Coronal and sagittal. In accordance with CT protocol optimization, one or more of the following dose reduction techniques were utilized for this exam: automated exposure control, adjustment of mA and/or KV based on patient size, or use of iterative reconstructive technique. FINDINGS: Lung Bases: Unremarkable. Right Kidney/Ureter: There are several peripelvic cysts involving the right kidney. There are no renal calculi and no evidence for hydronephrosis. Left Kidney/Ureter: There is left-sided hydronephrosis secondary to an obstructing calculus in the proximal right ureter. This calculus measures 8.4 mm in diameter and is located approximately 5.3 cm below the left ureteropelvic junction. Other Solid Organs: Noncontrast images of the solid organs are grossly unremarkable. Gallbladder/Bile Ducts: Unremarkable. Peritoneal Cavity: No free fluid, free air or daisha adenopathy. Bowel is grossly unremarkable. Pelvic Organs: No bladder stones or wall thickening. Noncontrast images of the visualized pelvic organs are unremarkable. Vasculature: Unremarkable. Other: None. IMPRESSION: 1. Left-sided hydronephrosis secondary to an obstructing calculus in the proximal left ureter. RADIA
[2019-02-17] MEDS ORDERED: ONDANSETRON ODT 4 MG TABLET TL STA (01:26)
[2019-02-17] MEDS ORDERED: oxyCODONE/ACET 5/325 Prepack 4 PO STA (01:27)
[2019-02-17 01:41] VITALS: BP 167/90
[2019-02-17] MEDS ORDERED: ONDANSETRON ODT 4 MG Prepack 2 TL PRN (01:42)
== END 2019-02-17 02:04 | disposition home or self-care (01) ==
LOC: ED 21:30
DX: N20.1 Calculus of ureter (principal); I10 Essential (primary) hypertension; I25.2 Old myocardial infarction; E11.9 Type 2 diabetes mellitus without complications; Z95.1 Presence of aortocoronary bypass graft; Z95.5 Presence of coronary angioplasty implant and graft
CPT/HCPCS: 74176; 81001; 87086; 96372; 99284; A9270; J1170; Q0162; 81003

== ENCOUNTER 2019-02-21 11:04 | Outpatient (CLI) | payer OTHER ==
[2019-02-21 12:27] VITALS: BP 120/70
--- NOTE | 2019-02-21 12:27 | SLEEP CARE CONSULTATION ---
Information from patient questionnaire entered by Janet Nunez. I have reviewed and concur with the information entered by Janet Nunez. This document represents the service I personally performed and the decisions made by me, Chiara Luna, RN, MSN, FINANCIAL AID OFFICER. History of Present Illness Reason for follow up: annual Equipment obtained from: [facility] Mask style: Nasal (Dreamwear) Mask brand: Respironics Backup mask available: Yes Last cushion change: yesterday HPI additional information: Patient is seeing a counselor for situational depression. Recent kidney stone and procedure scheduled Tuesday. He is also having angiogram heart catherization to evaluate his symptoms of intermittent chest pain. CPAP Compliance Data - Data Reviewed with Patient Average duration of nightly device use: 7h 59m Compliance rate %: 98.3 Current pressure setting (cmH2O): 9-20 Humidity settin Heated hose settin Average residual AHI: 2.6 Average large leak: 6s Subjective Missed days of use due to: reports: illness (nasal and sinus congestion) Patient concerns: reports: condensation in mask/hose (rare ), dry mouth, nose, throat (dryness of nose is rare). denies: aerophagia, mask discomfort, air blowing in eyes, mask leak noise Observed to snore while using device: No Current pressure setting perceived as: comfortable On therapy, patient: reports: sleeping better, awakening more refreshed, more rested overall Initial [place] Sleepiness Scale score: 19 Current [place] Sleepiness Scale score: 11 Allergies and Home Medications Known drug allergies: No Home medication list reviewed: Yes Allergy and home medication list: pantoprazole 40mg daily ranitidine 150mg daily aspirin EC 81mg daily loratadine 10mg daily metformin 1000mg bid eliquis 5mg bid diltiazem ER 180mg daily topiramate 25mg 4 daily trulicity 1.5mg 1 weekly flucticasone nasal spray 50mcg daily one day mens vitamins daily nitrostat 0.4mg as needed. Review of Systems Review of systems same as previous: No (just diagnosed past stroke when had his heart attack in past by neurologist) Physical Exam Blood Pressure: 120/70 Cuff size: long Heart Rate: 97 O2 Saturation: 98 Height: 5 ft 10 in Weight: 215 lb (lost weight after new diabetic / heart meds) Weight change since last visit: lost 23 pounds Body Mass Index: 30.8 BMI Classification: Obesity Class 1 Impression and Plan 1. Obstructive Sleep Apnea-Hypopnea Syndrome, severe, with good treatment compliance and good apnea control. On CPAP therapy, the patient has better sleep quality and is more rested overall. To reduce condensation, he was shown how to adjust his heated hose and humidity on a sample device with rationale of changing settings. Printed instructions given. Patient no longer has a copy of his sleep study and needs a copy to submit to [place] so I will have patient check with chest pain coordinator for process. Since patient has lost significant weight and hopes to lose more. I discussed how continued weight loss can reduce his apnea risk as well as his CPAP pressure requirement. So since his mean pressure used is at the lowest of his autoCPAP range, I will adjust lower to 7- [id number] to accommodate future weight loss. He is to contact me if the pressure is uncomfortable. I also reviewed symptoms to report for further adjustment as he loses more weight. Patient's apnea severity and rationale for treatment to reduce apnea, improve sleep quality and reduce cardiovascular and cerebrovascular events was reviewed. I also reviewed the benefit of consistent device use of CPAP for hypertension, cardiac disease, cerebrovascular disease, diabetes, depression/anxiety. Since his apnea is more severe supine, he is advised to avoid supine sleep if unable to use CPAP. * * Change CPAP pressure to 7-10 cmH2O * Adjust humidity and heated hose * Notify me if snoring with mask or feeling that the pressure is too much or too little * Continue to lose weight * copy of sleep study * Return for follow up in 1 year , or sooner if concerns arise I spent 100% of this 30 minute visit face to face with the patient with greater than 50% of this was spent time counseling the patient and coordination of care.
== END 2019-02-21 11:05 | disposition home or self-care (01) ==
LOC: SC 11:04
PROVIDERS: ATTEND Nurse Practitioner Family
DX: G47.33 Obstructive sleep apnea (adult) (pediatric) (principal); E66.9 Obesity, unspecified; Z68.30 Body mass index [BMI] 30.0-30.9, adult
CPT/HCPCS: 99212; 99214

== ENCOUNTER 2019-03-21 10:32 | Outpatient (CLI) | payer OTHER ==
--- NOTE | 2019-03-22 20:38 | XRAY Report ---
Reason: KIDNEY STONE Procedure Date: 03/21/2019 Accession Number: [id number] / [id number] Procedure: XR - Abdomen 1 View X-Ray CPT Code: 11424 Final Report FULL RESULT: EXAM: ABDOMEN RADIOGRAPHY EXAM DATE: 03/21/2019 10:49 AM. CLINICAL HISTORY: Kidney stone. COMPARISON: ABDOMEN/PELVIS W/O 02/16/2019 10:29 PM. TECHNIQUE: 1 view. FINDINGS: Bowel Gas Pattern: Within normal limits. No dilated loops. Other: The left ureteral calculus demonstrated on the prior CT is not clearly visualized on this exam. Multilevel degenerative changes are noted in the spine. IMPRESSION: The previously noted left ureteral calculus is not clearly visualized. RADIA
== END 2019-03-21 10:33 | disposition home or self-care (01) ==
LOC: DI 10:32
PROVIDERS: ATTEND Specialist
DX: N20.1 Calculus of ureter (principal)
CPT/HCPCS: 74018

== ENCOUNTER 2019-05-20 12:20 | Emergency (ER) | payer OTHER ==
[2019-05-20] MEDS ORDERED: ASPIRIN CHEW 81 MG TABLET PO STA (12:33)
[2019-05-20 12:55] LABS: BASOPHILS % (AUTO) 0.6 %; EOSINOPHILS # (AUTO) 0.1 10^3/uL (0.0-0.7); EOSINOPHILS % (AUTO) 1.5 %; HGB - HEMOGLOBIN 13.7 g/dL (14.0-18.0); LYMPHOCYTES # (AUTO) 1.9 10^3/uL (1.5-3.5); LYMPHOCYTES % (AUTO) 30.6 %; MEAN CORPUSCULAR HEMOGLOBIN 30.4 pg (27.0-31.0); MEAN CORPUSCULAR HGB CONC 31.9 g/dL (32.0-36.0); MEAN CORPUSCULAR VOLUME 95.1 fL (80.0-94.0); MEAN PLATELET VOLUME 11.1 fL (7.4-11.4); MONOCYTES # (AUTO) 0.5 10^3/uL (0.0-1.0); MONOCYTES % (AUTO) 7.3 %; NEUTROPHILS # (AUTO) 3.7 10^3/uL (1.5-6.6); NEUTROPHILS % (AUTO) 59.8 %; PLT - PLATELET COUNT 258 10^3/uL (130-450); RED BLOOD COUNT 4.51 10^6/uL (4.70-6.10); RED CELL DISTRIBUTION WIDTH 13.2 % (12.0-15.0); WHITE BLOOD COUNT 6.2 x10^3/uL (4.8-10.8)
--- NOTE | 2019-05-20 13:01 | ED Physician Documentation ---
PD HPI CHEST PAIN - Stated complaint Stated Complaint: CHEST PRESSURE - Chief complaint Chief Complaint: Cardiac - Additional information Additional information: This is a 58 year old male with a history of CABG, and 5 stents in the interim, who follows with Dr. Coe of [facility] cardiology, who presents with chest pain. Pt states he will intermittently get chest discomfort, but last night he was moving a generator around the house and afterwards felt some upper chest discomfort. He thought it was a bit of a muscle strain but it persisted so his convinced him to come in to get checked out. He denies diaphoresis, arm pain. He has some left facial tingling, but says he gets this chronically and has been worked up by a neurologist who thinks it is trigeminal related. He has had a recent nuclear stress test in the last month, which was unchanged from a prior. He was going to have what sounds like a catheterization but had a bump in his creatinine due to a kidney stone so the stress test was done instead. He has follow up with his hand plate stacker in a few days. He took aspirin at home but no nitro. His discomfort is currently a 2-07/26. Review of Systems Constitutional: denies: Fever Nose: denies: Rhinorrhea / runny nose Cardiac: reports: Chest pain / pressure Respiratory: denies: Dyspnea GI: denies: Abdominal Pain : denies: Dysuria Skin: denies: Rash Musculoskeletal: denies: Neck pain Neurologic: reports: Other (L face tingling) Immunocompromised: denies: Immunocompromised PD PAST MEDICAL HISTORY - Past Medical History Cardiovascular: Hypertension, [place] Endocrine/Autoimmune: Type 2 diabetes : Kidney stones - Past Surgical History Past Surgical History: Yes Cardiovascular: CABG, Coronary stent - Present Medications Home Medications: Ambulatory Orders Medication Instructions Recorded Confirmed Fluticasone [Flonase] 1 spray INH DAILY 12/20/12 05/20/19 Lisinopril [Zestril] 2.5 mg PO DAILY 12/20/12 01/19/17 Loratadine [Claritin] 10 mg PO DAILY 12/20/12 05/20/19 Meloxicam 7.5 mg PO DAILY 12/20/12 01/19/17 Metformin HCl [Metformin HCl ER] 1,000 mg PO BID 12/20/12 05/20/19 glipiZIDE [Glucotrol] 10 mg PO 0730 12/20/12 01/19/17 raNITIdine HCl [Ranitidine HCl] 150 mg PO DAILY 12/20/12 05/20/19 Ondansetron Odt [Zofran] 4 mg TL Q6H PRN #10 tablet 10/31/16 01/19/17 Tamsulosin HCl [Flomax] 0.4 mg PO DAILY #7 cap.er.24h 10/31/16 01/19/17 oxyCODONE/ACET 5/325 [Percocet 5 1 each PO Q4-6H PRN #16 tablet 10/31/16 01/19/17 mg/325 mg] Nitroglycerin [Nitromist] 1 spray PRN PRN 11/14/16 01/19/17 Oxycodone HCl/Acetaminophen 1 - 2 tab PO Q4H PRN #15 tablet 11/14/16 01/19/17 [Percocet 5-325 mg Tablet] Acyclovir 400 mg PO 5XD #25 tablet 01/19/17 dexAMETHasone [Decadron] 4 mg PO DAILY #5 tablet 01/19/17 Ondansetron Odt [Zofran] 4 mg TL Q6H PRN #10 tablet 02/17/19 Oxycodone HCl/Acetaminophen 1 - 2 each PO Q6H PRN #20 tablet 02/17/19 [Percocet 5-325 mg Tablet] Tamsulosin [Flomax] 0.4 mg PO DAILY #10 capsule 02/17/19 Apixaban [Eliquis] 5 mg PO BID 05/20/19 05/20/19 Aspirin [Adult Low Dose Aspirin EC] 81 mg PO DAILY 05/20/19 05/20/19 Atorvastatin Calcium [Lipitor] 80 mg PO DAILY 05/20/19 05/20/19 Diltiazem HCl [Diltiazem 24Hr ER] 180 mg PO DAILY 05/20/19 05/20/19 Dulaglutide [Trulicity] 1.5 mg SQ OAW 05/20/19 05/20/19 Isosorbide Mononitrate ER [Imdur] 15 mg PO DAILY #15 tablet 05/20/19 Losartan [Cozaar] 50 mg PO DAILY 05/20/19 05/20/19 Nitroglycerin 0.4 mg SL PRN PRN 05/20/19 05/20/19 Pantoprazole [Protonix] 40 mg PO DAILY 05/20/19 05/20/19 Topiramate 4 tab PO DAILY 05/20/19 05/20/19 - Allergies Allergies/Adverse Reactions: Allergies Allergy/AdvReac Type Severity Reaction Status Date / Time No Known Drug Allergies Allergy Verified 05/20/19 12:23 - Social History Does the pt smoke?: No Smoking Status: Never smoker Does the pt drink ETOH?: No Does the pt have substance abuse?: No - Immunizations Immunizations are current?: Yes - POLST Patient has POLST: No PD ED PE NORMAL - Vitals Vital signs reviewed: Yes - General General: Alert and oriented X 3, No acute distress - HEENT HEENT: Atraumatic, PERRL, Moist mucous membranes - Neck Neck: Supple, no meningeal sign - Cardiac Cardiac: RRR - Respiratory Respiratory: No respiratory distress, Clear bilaterally - Abdomen Abdomen: Normal bowel sounds, Non distended - Derm Derm: Warm and dry - Extremities Extremities: No deformity - Neuro Neuro: Alert and oriented X 3, machine compositor 2-12 intact, No motor deficit, No sensory deficit, Normal speech, Other (Face is symmetric, sensation to light touch intact.) - Psych Psych: Normal mood, Normal affect Results - Vitals Vitals: Vital Signs - 24 hr 05/20/19 05/20/19 05/20/19 12:23 12:30 13:00 Temperature 36.8 C Heart Rate 87 78 87 Respiratory 17 11 L 11 L Rate Blood Pressure 168/88 H 159/90 H 135/73 H O2 Saturation 100 99 100 05/20/19 05/20/19 05/20/19 13:18 13:30 14:00 Temperature Heart Rate 84 81 73 Respiratory 17 11 L 13 Rate Blood Pressure 148/72 H 132/82 H 117/70 O2 Saturation 99 98 100 05/20/19 05/20/19 05/20/19 14:30 15:00 15:30 Temperature Heart Rate 70 74 68 Respiratory 10 L 21 10 L Rate Blood Pressure 95/78 119/79 121/73 O2 Saturation 99 99 98 Oxygen O2 Source Room air - EKG (time done) 15:07 Other comments: Other comments (Rate 69, rhythm sinus, there are Q waves in the inferior leads suggestive of an old inferior infarct, there is no ST segment elevation or depression. T wave flattening in aVL.) 12:35 Other comments: Other comments (Time 12:35, rate 73, rhythm sinus, there is no ST segment elevation or depression. There are Q waves in the inferior leads suggestive of an old infarct. There is T wave flattening in aVL.) - Labs Labs: Laboratory Tests 05/20/19 05/20/19 05/20/19 12:39 12:39 12:39 WBC 6.2 RBC 4.51 L Hgb 13.7 L Hct 42.9 MCV 95.1 H MCH 30.4 MCHC 31.9 L RDW 13.2 Plt Count 258 MPV 11.1 Neut # (Auto) 3.7 Lymph # (Auto) 1.9 [place] # (Auto) 0.5 Eos # (Auto) 0.1 Baso # (Auto) 0.0 Absolute Nucleated RBC 0.00 Nucleated RBC % 0.0 Sodium 137 Potassium 4.0 Chloride 101 Carbon Dioxide 23 Anion Gap 13.0 BUN 15 Creatinine 1.2 Estimated GFR (MDRD) 62 L Glucose 147 H Calcium 9.3 Total Bilirubin 0.8 AST 23 ALT 32 Alkaline Phosphatase 79 Troponin I High Sens 4.0 Total Protein 8.0 Albumin 4.7 Globulin 3.3 Albumin/Globulin Ratio 1.4 Lipase 29 05/20/19 15:10 WBC RBC Hgb Hct MCV MCH MCHC RDW Plt Count MPV Neut # (Auto) Lymph # (Auto) [place] # (Auto) Eos # (Auto) Baso # (Auto) Absolute Nucleated RBC Nucleated RBC % Sodium Potassium Chloride Carbon Dioxide Anion Gap BUN Creatinine Estimated GFR (MDRD) Glucose Calcium Total Bilirubin AST ALT Alkaline Phosphatase Troponin I High Sens 3.3 Total Protein Albumin Globulin Albumin/Globulin Ratio Lipase - Rads (name of study) CXR Radiology: Other (No acute cardiopulmonary abnormality) PD MEDICAL DECISION MAKING - ED course Complexity details: considered differential (ACS, dysrhtymmia, PNA, PTX, PE, angina ) ED course: Pt arrives non-toxic appearing, with unremarkable vital signs. 2 EKGs and serial HS troponins are negative for signs of acute ischemia. CXR is unremarkable, as are labs. No signs of leg swelling, and symptoms are not consistent with PE. I am most concerned for ACS, however pt had a very recent nuclear stress test and has negative troponins and EKGs here. He was given 1 tab of nitro with complete resolution of his pain. I spoke with Dr. Eller of Cardiology and reviewed the case with him. He suggested starting Imdur 15mg daily and following up with Dr. Coe as scheduled this Tuesday. I agree that with completely resolved pain, recent nuclear stress test, 2 negative HS troponins and unremarkable EKGS and close cardiology follow up, pt appears appropriate for outpatient management. I discussed the Imdur and its side effects, reviewed return precautions for any new or worsening symptoms including chest pain, and pt agreed and was eager to go home. He was discharged in the care of his . Departure - Departure Disposition: Home, Self Care Clinical Impression: Chest pain Qualifiers: Chest pain type: unspecified Qualified Code(s): R07.9 - Chest pain, unspecified Condition: Good Follow-Up: Thang Coe MD [Physician No Access] - Prescriptions: Isosorbide Mononitrate ER [Imdur] 15 mg PO DAILY #15 tablet Comments: Your troponin levels were normal today, we do not see signs on your blood work of significant strain on your heart. I spoke with your hand plate stacker group, and the recommendation is to start a new medication called Imdur, taking 15mg (one half tablet) daily. This medication can lower your blood pressure somewhat, so be extra careful when you are getting up out of bed, and if you are feeling dizzy with it, please contact your hand plate stacker. Follow-up this week with your hand plate stacker as scheduled. If you are having recurrence of your chest pain or other concerning symptoms such as shortness of breath or passing out return to the emergency department. Discharge Date/Time: 05/20/19 15:55
[2019-05-20 13:02] LABS: ALBUMIN 4.7 g/dL (3.2-5.5); ALBUMIN/GLOBULIN RATIO 1.4 (1.0-2.2); BILIRUBIN,TOTAL 0.8 mg/dL (0.2-1.0); CALCIUM 9.3 mg/dL (8.5-10.3); CREATININE 1.2 mg/dL (0.6-1.2)
--- NOTE | 2019-05-20 13:07 | XRAY Report ---
Reason: chest pain Procedure Date: 05/20/2019 Accession Number: [id number] / [id number] Procedure: XR - Chest 1 View X-Ray CPT Code: 59038 Final Report FULL RESULT: EXAM: CHEST RADIOGRAPHY EXAM DATE: 05/20/2019 12:45 PM. CLINICAL HISTORY: Chest pain. COMPARISON: CHEST 2 VIEW PA/LAT 01/29/2015 9:50 AM. TECHNIQUE: 1 view. FINDINGS: Lungs/Pleura: No focal consolidation or evidence of edema. No pleural effusion or pneumothorax. Mediastinum: Postoperative changes of prior CABG. Normal cardiomediastinal contour. Other: The bones are unremarkable. IMPRESSION: No acute cardiopulmonary abnormality. RADIA
[2019-05-20] MEDS ORDERED: NITROGLYCERIN SL 0.4 MG TABLET SL STA (13:11)
[2019-05-20 15:38] VITALS: BP 121/73
== END 2019-05-20 15:55 | disposition home or self-care (01) ==
LOC: ED 12:20
DX: R07.9 Chest pain, unspecified (principal); R79.89 Other specified abnormal findings of blood chemistry; I10 Essential (primary) hypertension; E11.9 Type 2 diabetes mellitus without complications; Z79.84 Long term (current) use of oral hypoglycemic drugs
CPT/HCPCS: 36415; 71045; 80053; 83690; 84484; 85025; 93005; 99284; A9270

== ENCOUNTER 2019-12-28 07:57 | Outpatient (CLI) | payer OTHER ==
--- NOTE | 2019-12-28 09:10 | SLEEP CARE CONSULTATION ---
Information from patient questionnaire entered by Janet Nunez. I have reviewed and concur with the information entered by Janet Nunez. This document represents the service I personally performed and the decisions made by me, Thelma Sanon ARNP. History of Present Illness Service Date and Time: 12/28/2019 0757 Previous diagnosis: Severe, Obstructive Sleep Apnea-Hypopnea Syndrome AHI: 34.7 Reason for follow up: other (10 month - keeps waking at night) Equipment type: CPAP Equipment obtained from: [facility] (getting supplies as needed) Mask style: Nasal Mask brand: Respironics Backup mask available: Yes (old mask) Last cushion change: 1 week ago [facility]: Yes [facility] Type of Sleep Study: Polysomnography HPI additional information: KRYSTIAN ADEN was diagnosed to have severe, AHI 34.7, obstructive sleep apnea- hypopnea syndrome and returned today for CPAP therapy ten month follow-up. He is working nights (30 year history). He is going to bed about 11:45 PM to midnight. But now awakening up at 1-2 AM and then just about hourly. He stops trying to sleep about 7 in the morning. He used to sleep until 9 AM but he has not able to stay asleep in the last couple months. He does not know what is waking him up and sometimes he feels he is not getting enough air. He gets frustrated with waking up several times and takes the mask off. He thinks he is sleeping okay without the mask on. His has not heard him snoring when he is not using the CPAP machine. He is very tired during the day but is unable to take a nap. He has lost about 40+ pounds over the last year and he is still losing with a goal of 188 pound. He recently saw his PCP because he thought it might be cardiac related but they cleared him of heart involvement. He does have an appointment to follow up with his neurologist due to stroke history. CPAP Compliance Data - Data Reviewed with Patient Average duration of nightly device use: 7 hours 57 minutes Compliance rate %: 96.7 Current pressure setting (cmH2O): 7-10 Humidity settin Heated hose settin Average residual AHI: 3.0 Average large leak: 1 second Subjective Missed days of use due to: reports: illness Patient concerns: reports: other (throat feels congested since sleep pattern changed last couple months). denies: aerophagia, mask discomfort, air blowing in eyes, mask leak noise, condensation in mask/hose, nasal congestion, dry mouth, nose, throat, epistaxis Observed to snore while using device: No Current pressure setting perceived as: poss. low On therapy, patient: reports: sleeping better, awakening more refreshed, being more awake and alert during the day, more rested overall. denies: drowsiness while driving Initial [place] Sleepiness Scale score: 19 Current [place] Sleepiness Scale score: 18 Allergies and Home Medications Drug allergies reviewed: Yes (NKDA) Home medication list reviewed: Yes Allergy and home medication list: Medication changes: Ranolanzine 500 mg (1) 12 hours Tamsulosin (1) night; for him to sleep Review of Systems Review of systems same as previous: No (having issues with waking up early) Physical Exam Heart Rate: 71 O2 Saturation: 97 Height: 5 ft 10 in Weight: 198 lb Body Mass Index: 28.4 BMI Classification: Overweight Impression and Plan 1. Obstructive Sleep Apnea-Hypopnea Syndrome, severe, with good treatment compliance and good apnea control. On CPAP therapy, the patient has better sleep quality and is more rested overall. Patient has lost weight. Currently patients BMI is 28.7. Thus patient is advised to continue to lose weight. The patient's CPAP pressure was changed to 6-12 cm H2O to accommodate future weight loss. Symptoms to report for additional pressure adjustment discussed. I will have patient follow up in about a month to see evaluate his response to changes. I discussed with patient that I will consult with our Pattern Vault Clerk about retesting. Because he has had significant weight loss and is having these current issues I feel it may be warranted to repeat a sleep study to evaluate for changes. Patient's apnea severity and rationale for treatment to reduce apnea, improve sleep quality and reduce cardiovascular and cerebrovascular events was reviewed. I also reviewed the benefit of consistent device use of CPAP for hypertension, cardiac disease, cerebrovascular disease, diabetes, and depression/anxiety. * Changeauto CPAP pressure to 6-12 cm H2O * Consult with Pattern Vault Clerk about patient symptoms to confirm need of repeat sleep study. * Notify me if snoring with mask or feeling that the pressure is too much or too little * Continue to lose weight * Call this office if any problems using CPAP * Return for follow up in 1-2 months, or sooner if concerns arise Visit Type: In Office Time Spent with Patient (minutes): 23 Provider Statement: I spent 100% of the Face to Face Visit with the patient with greater than 50% spent counseling the patient and coordination of care.
== END 2019-12-28 07:58 | disposition home or self-care (01) ==
LOC: SC 07:57
PROVIDERS: ATTEND Nurse Practitioner Family
DX: G47.33 Obstructive sleep apnea (adult) (pediatric) (principal); E66.3 Overweight; Z68.28 Body mass index [BMI] 28.0-28.9, adult
CPT/HCPCS: 99212; 99213

== ENCOUNTER 2020-02-17 20:16 | Outpatient (CLI) | payer OTHER | END 2020-02-17 20:17 | disposition home or self-care (01) | LOC: SC 20:16 | PROVIDERS: ATTEND Nurse Practitioner Family | DX: G47.33 Obstructive sleep apnea (adult) (pediatric) (principal); G47.61 Periodic limb movement disorder | CPT/HCPCS: 95810 ==

== ENCOUNTER 2020-02-26 14:13 | Outpatient (CLI) | payer OTHER ==
--- NOTE | 2020-02-26 10:17 | SLEEP CARE CONSULTATION ---
Information from patient questionnaire entered by Janet Nunez. I have reviewed and concur with the information entered by Janet Nunez. This document represents the service I personally performed and the decisions made by , Thelma Sanon ARNP. History of Present Illness Service Date and Time: 02/26/2020 0820 Reason for follow up: with sleep study, other (2 month with pressure change) Equipment type: CPAP Equipment obtained from: [facility] (getting supplies as needed) Mask style: Nasal (Dreamwear) Backup mask available: Yes (old mask) Last cushion change: tuesday Prior sleep studies: Yes Year and Where: 02/2020 & 2012 [place] Type of Sleep Study: Polysomnography HPI additional information: KRYSTIAN ADEN was re-diagnosed to have mild, AHI 13.7, obstructive sleep apnea- hypopnea syndrome and return via Telehealth video today with spouse for CPAP therapy one month pressure change and results of the recently performed polysomnography due to significant weight loss follow-up. Sleep Study - Results Type of Sleep Study: Polysomnography Prior sleep studies: Yes Year and Where: 02/2020 & 2012 [place] Polysomnography/Home Sleep Study results: IMPRESSION: The quality of the study is good. The patient had normal sleep effi ciency. The sleep architecture was relatively normal as well considering the first night effect. Respiratory monitoring showed mild obstructive sleep apnea-hypopnea (AHI = 13.7) associated with oxyhemoglobin desaturation and mild hypoxia (piero oxygen saturation of 84%) but not sleep fragmentation. The respiratory events occurred mainly during supine sleep (supine AHI = 86.3; non-supine = 5.51). Snore was infrequent and light in intensity. There was mild periodic leg movement of sleep not associated with sleep fragmentation. Cardiac rhythm was normal sinus rhythm with occasional premature ventricular contractions. No abnormal behavior (parasomnia) observed during the night. CPAP Compliance Data - Data Reviewed with Patient Average duration of nightly device use: 8 hours 31 minutes Compliance rate %: 90 Current pressure setting (cmH2O): 6-12 Humidity settin Heated hose settin Average residual AHI: 3.7 Average large leak: 4 sec Subjective Patient concerns: reports: condensation in mask/hose (little bit in mask), nasal congestion (sometimes, not a lot). denies: aerophagia, mask discomfort, air blowing in eyes, mask leak noise, dry mouth, nose, throat, epistaxis, other Observed to snore while using device: No Current pressure setting perceived as: too high (a little bit) On therapy, patient: reports: sleeping better, awakening more refreshed, being more awake and alert during the day, more rested overall. denies: drowsiness while driving Initial [place] Sleepiness Scale score: 19 Current [place] Sleepiness Scale score: 8 Allergies and Home Medications Drug allergies reviewed: Yes (NKDA) Home medication list reviewed: Yes (no changes) Review of Systems Review of systems same as previous: Yes (no changes) Physical Exam Vital signs obtained and entered by: Telehealth visit to limit virus exposure during Covid pandemic Height: 5 ft 10 in Impression and Plan 1. Obstructive Sleep Apnea-Hypopnea Syndrome, mild, with good treatment compliance and good apnea control. On CPAP therapy, the patient has better sleep quality and is more rested overall. His PSG showed him to now have mild obstructive sleep apnea with AHI 13.7, although he is still very severe supine at 86.3 AHI. He still feels the pressure is a little too high but overall comfortable. I will adjust pressure to 6-9 cm H2O and have him follos up in 1-2 months to see how he is doing. Patient's apnea severity and rationale for treatment to reduce apnea, improve sleep quality and reduce cardiovascular and cerebrovascular events was reviewed. I also reviewed the benefit of consistent device use of CPAP for hypertension, cardiac disease, cerebrovascular disease, diabetes, and depression/anxiety. * Changeauto CPAP pressure to 6-9 cmH2O * Notify me if snoring with mask or feeling that the pressure is too much or too little * Attempt to lose weight * Call this office if any problems using CPAP * Return for follow up in 1-2 months, or sooner if concerns arise Counseling Topics: Spare mask, Weight loss health impact Visit Type: Telehealth Video Video Type: Dannie Patient Location: Home Location of Provider: Office Time Spent with Patient (minutes): 15 Provider Statement: I spent 100% of the Telehealth Video Call with the patient with greater than 50% spent counseling the patient and coordination of care.
== END 2020-02-26 14:14 | disposition home or self-care (01) ==
LOC: SC 14:13
PROVIDERS: ATTEND Nurse Practitioner Family
DX: G47.33 Obstructive sleep apnea (adult) (pediatric) (principal)

== ENCOUNTER 2020-06-26 17:06 | Emergency (ER) | payer OTHER ==
[2020-06-26 17:36] LABS: GLUCOSE, URINE (UA) NEGATIVE (NEGATIVE); KETONES,URINE (UA) NEGATIVE (NEGATIVE); LEUKOCYTE ESTERASE, URINE NEGATIVE (NEGATIVE); NITRITE,URINE NEGATIVE (NEGATIVE); OCCULT BLOOD,URINE LARGE (NEGATIVE); PROTEIN,URINE 100 mg/dL (NEGATIVE); UROBILINOGEN,URINE 0.2 (NORMAL) E.U./dL (NORMAL)
--- NOTE | 2020-06-26 17:37 | ED Physician Documentation ---
History of Present Illness - Stated complaint Stated Complaint: MALE - Chief complaint Chief Complaint: Abd Pain - Additonal information Additional information: 60-year-old male presents to the emergency department for evaluation of painless hematuria that he noticed this morning upon wakening. He denies fevers dysuria flank pain vomiting chills or myalgias. He does have a history of renal stones and has had previous lithotripsy in the past. He states that he has not had any symptoms similar to when he is passed stones previously. He is scheduled for follow-up with his urologist this upcoming August. This gentleman does have a history of type 2 diabetes as well as coronary artery disease status post stenting x6. He is on Eliquis related to his coronary artery disease. At present he denies headaches, chest pain, shortness of breath cough abdominal pain, hematuria melena or hematochezia. No other bruising bleeding on the body. No bruising or bleeding when he brushes his teeth. Review of Systems Constitutional: denies: Fever, Chills, Myalgias Eyes: reports: Reviewed and negative Ears: reports: Reviewed and negative Nose: reports: Reviewed and negative Throat: reports: Reviewed and negative Cardiac: reports: Reviewed and negative Respiratory: denies: Dyspnea, Cough GI: denies: Abdominal Pain, Nausea, Vomiting, Constipation, Diarrhea : reports: Hematuria. denies: Dysuria, Frequency, Hesitancy Skin: reports: Reviewed and negative Musculoskeletal: reports: Reviewed and negative Neurologic: reports: Reviewed and negative PD PAST MEDICAL HISTORY - Past Medical History Cardiovascular: Hypertension, [place] Endocrine/Autoimmune: Type 2 diabetes : Kidney stones - Past Surgical History Past Surgical History: Yes Cardiovascular: CABG, Coronary stent - Present Medications Home Medications: Ambulatory Orders Medication Instructions Recorded Confirmed Apixaban [Eliquis] 1 tab PO BID 06/26/20 06/26/20 Aspirin [Hart Aspirin] 1 tab PO DAILY 06/26/20 06/26/20 Atorvastatin Calcium [Lipitor] 1 tab PO DAILY 06/26/20 06/26/20 DULoxetine [Cymbalta] 2 tab PO DAILY 06/26/20 06/26/20 Dulaglutide [Trulicity] 1 applic IM 06/26/20 Isosorbide Mononitrate [Isosorbide 1 tab PO DAILY 06/26/20 06/26/20 Mononitrate ER] Loratadine [Allergy Relief] 1 tab PO DAILY 06/26/20 06/26/20 Losartan [Cozaar] 1 tab PO DAILY 06/26/20 06/26/20 Multivitamin 1 tab PO DAILY 06/26/20 06/26/20 Nitroglycerin [Nitrostat] 1 tab PO PRN PRN 06/26/20 06/26/20 Pantoprazole [Protonix] 1 tab PO DAILY 06/26/20 06/26/20 Potassium Citrate 1,620 mg PO DAILY 06/26/20 06/26/20 Ranolazine [Ranolazine ER] 1 tab PO DAILY 06/26/20 06/26/20 Tamsulosin HCl [Flomax] 1 tab PO DAILY 06/26/20 06/26/20 Topiramate [Topiramate ER] 50 mg PO BID 06/26/20 06/26/20 dilTIAZem HCL [Diltiazem 24Hr ER 1 tab PO DAILY 06/26/20 06/26/20 (Xr)] metFORMIN [Glucophage] 1,000 mg PO BID 06/26/20 06/26/20 - Allergies Allergies/Adverse Reactions: Allergies Allergy/AdvReac Type Severity Reaction Status Date / Time No Known Drug Allergies Allergy Verified 06/26/20 17:21 - Social History Does the pt smoke?: No Smoking Status: Never smoker Does the pt drink ETOH?: No Does the pt have substance abuse?: No - Immunizations Immunizations are current?: Yes - POLST Patient has POLST: No PD ED PE NORMAL - General General: Alert and oriented X 3, No acute distress - HEENT HEENT: Atraumatic, EOMI, Ears normal - Neck Neck: Supple, no meningeal sign, No adenopathy - Cardiac Cardiac: RRR, No murmur, No gallop - Respiratory Respiratory: No respiratory distress, Clear bilaterally - Abdomen Abdomen: Normal bowel sounds - Male Male : Deferred, Pt declined - Back Back: No CVA TTP, No spinal TTP - Derm Derm: Normal color, Warm and dry, No rash - Extremities Extremities: No deformity, No tenderness to palpate, Normal ROM s pain - Neuro Neuro: Alert and oriented X 3, ground layer 2-12 intact, No motor deficit Eye Opening: Spontaneous Motor: Obeys Commands Verbal: Oriented GCS Score: 15 Results - Vitals Vitals: Vital Signs - 24 hr 06/26/20 17:17 Temperature 36.8 C Heart Rate 96 Respiratory 16 Rate Blood Pressure 152/88 H O2 Saturation 99 Oxygen O2 Source Room air - Labs Labs: Laboratory Tests 06/26/20 06/26/20 06/26/20 17:25 17:47 17:47 WBC 5.8 RBC 4.13 L Hgb 12.7 L Hct 39.2 L MCV 94.9 H MCH 30.8 MCHC 32.4 RDW 12.3 Plt Count 222 MPV 10.9 Neut # (Auto) 3.9 Lymph # (Auto) 1.4 L Wood # (Auto) 0.4 Eos # (Auto) 0.1 Baso # (Auto) 0.0 Absolute Nucleated RBC 0.00 Nucleated RBC % 0.0 Sodium 135 Potassium 3.7 Chloride 105 Carbon Dioxide 22 Anion Gap 8.0 BUN 15 Creatinine 1.1 Estimated GFR (MDRD) 68 L Glucose 148 H Calcium 9.1 Total Bilirubin 0.4 AST 20 ALT 20 Alkaline Phosphatase 67 Total Protein 7.1 Albumin 4.3 Globulin 2.8 Albumin/Globulin Ratio 1.5 Lipase 24 Urine Color RED/BLOODY Urine Clarity CLOUDY Urine pH 6.0 Ur Specific [place] 1.015 Urine Protein 100 H Urine Glucose (UA) NEGATIVE Urine Ketones NEGATIVE Urine Occult Blood LARGE H Urine Nitrite NEGATIVE Urine Bilirubin NEGATIVE Urine Urobilinogen 0.2 (NORMAL) Ur Leukocyte Esterase NEGATIVE Urine RBC TNTC H Urine WBC 6-10 H Ur Squamous Epith Cells RARE Squamous Urine Bacteria Rare Ur Microscopic Review INDICATED Urine Culture Comments INDICATED - Rads (name of study) CT abd/pelvis w Radiology: Final report received (Tract stone is not found. There is no ev idence of renal cortical or urothelial neoplasm. Source of current hematuria is not identified.) PD MEDICAL DECISION MAKING - ED course Complexity details: reviewed results, re-evaluated patient, considered differential, d/w patient ED course: 60-year-old male presents emergency department for evaluation of painless hematuria that he noted this morning after his morning walk. He does have a history of coronary coronary artery disease status post stenting x6. He is on Eliquis due to this. He also has a history of previous nephrolithiasis and urolithiasis status post lithotripsy about 18 months ago. When he presented to the emergency department he appeared very well. No hemodynamic instability or fevers. Screening labs show no worrisome abnormalities no leukocytosis. No electrolyte abnormalities of note. His renal function is preserved. Urinalysis did reveal gross hematuria though not te rribly suggestive of infection. CT of the abdomen with contrast did not reveal urinary tract stones or renal cortical neoplasm. Findings were discussed with patient. He will be started on a 7-day course of Macrobid. I have advised him to follow-up closely with his urologist Dr. Jones as well as his business services analyst Dr. Coe. He emergent return precautions were discussed for suddenly severe pain worsening hematuria with clots or any fainting episodes or if he notices hematochezia or melena. Departure - Departure Disposition: 01 Home, Self Care Clinical Impression: Hematuria Qualifiers: Hematuria type: gross Qualified Code(s): R31.0 - Gross hematuria Condition: Stable Record reviewed to determine appropriate education?: Yes Follow-Up: ISABEL MARCELO MD [Primary Care Provider] - Comments: Jagdeep you are seen in the emergency department today for painless blood in your urine. Your screening labs were essentially unremarkable. The CT of your abdomen did not show any obstructing stones or obvious cause for the blood in your urine. It is possible you have a subclinical infection in the urine therefore we will start you on a 7-day course of an antibiotic called Macrobid. I would like you to call your urologist and schedule a sooner follow-up than August. I would also discuss this ED visit with your business services analyst. If you develop suddenly severe pain, have fainting episodes, develop shortness of breath or chest pain Or noticed black or bloody stools then please return immediately to the emergency department for a second evaluation.
[2020-06-26 17:44] LABS: BILIRUBIN,URINE NEGATIVE (NEGATIVE); CLARITY,URINE CLOUDY (CLEAR); ICTOTEST,URINE NEGATIVE
[2020-06-26 17:45] LABS: BACTERIA,URINE Rare /HPF (None Seen); RBC,URINE TNTC /HPF (0-5); SQUAMOUS EPITHELIAL CELL,UR RARE Squamous (<= Few)
[2020-06-26 17:52] LABS: BASOPHILS % (AUTO) 0.3 %; EOSINOPHILS # (AUTO) 0.1 10^3/uL (0.0-0.7); HCT - HEMATOCRIT 39.2 % (42.0-52.0); HGB - HEMOGLOBIN 12.7 g/dL (14.0-18.0); LYMPHOCYTES # (AUTO) 1.4 10^3/uL (1.5-3.5); LYMPHOCYTES % (AUTO) 23.9 %; MEAN CORPUSCULAR HEMOGLOBIN 30.8 pg (27.0-31.0); MEAN CORPUSCULAR HGB CONC 32.4 g/dL (32.0-36.0); MEAN CORPUSCULAR VOLUME 94.9 fL (80.0-94.0); MEAN PLATELET VOLUME 10.9 fL (7.4-11.4); MONOCYTES # (AUTO) 0.4 10^3/uL (0.0-1.0); MONOCYTES % (AUTO) 7.5 %; NEUTROPHILS # (AUTO) 3.9 10^3/uL (1.5-6.6); NEUTROPHILS % (AUTO) 67.1 %; PLT - PLATELET COUNT 222 10^3/uL (130-450); RED BLOOD COUNT 4.13 10^6/uL (4.70-6.10); RED CELL DISTRIBUTION WIDTH 12.3 % (12.0-15.0); WHITE BLOOD COUNT 5.8 x10^3/uL (4.8-10.8)
[2020-06-26] MEDS ORDERED: IOVERSOL 320 100 ML VIAL IVP ONE ×2 (17:56→18:38)
[2020-06-26 18:04] LABS: ALBUMIN 4.3 g/dL (3.2-5.5); ALBUMIN/GLOBULIN RATIO 1.5 (1.0-2.2); BILIRUBIN,TOTAL 0.4 mg/dL (0.2-1.0); CALCIUM 9.1 mg/dL (8.5-10.3); CREATININE 1.1 mg/dL (0.6-1.2); POTASSIUM 3.7 mmol/L (3.5-5.0); TOTAL PROTEIN 7.1 g/dL (6.7-8.2)
--- NOTE | 2020-06-26 18:44 | CT Report ---
PROCEDURE: Abdomen/Pelvis W INDICATIONS: painless hematuria CONTRAST: IV CONTRAST: Optiray 320 ml: 100 PO CONTRAST: *NO PO CONTRAST TECHNIQUE: After the administration of contrast, 5 mm thick sections acquired from the diaphragms to the sym physis. 5 mm thick coronal and sagittal reformats were acquired. For radiation dose reduction, the following was used: automated exposure control, adjustment of mA and/or kV according to patient size . COMPARISON: Prior CT abdomen/pelvis 02/16/2019. FINDINGS: Image quality: Excellent. ABDOMEN: Lung bases: Lung bases are clear. Heart size is normal. Solid organs: Liver and spleen are normal in size and enhancement. Gallbladder appears normal Bili ktaina system is non dilated. Pancreas enhances normally. No adrenal nodules. Kidneys demonstrate nor mal size and enhancement, without hydronephrosis. Peritoneum and bowel: Bowel loops demonstrate normal wall thickness and caliber. No free fluid or a ir. Nodes and vessels: No retroperitoneal or mesenteric adenopathy by size criteria. Aorta and inferior vena cava are normal in size. Miscellaneous: No ventral hernias. PELVIS: Genitourinary: Bladder wall thickness is normal. Miscellaneous: No inguinal hernias or adenopathy. Bones: No suspicious bony lesions. No vertebral body compression fractures. IMPRESSION: A urinary tract stone is not found. There is no evidence of renal cortical or urothelial neoplasm. A source of current hematuria is not identified. Reviewed by: Jorge Sandoval MD on 06/26/2020 5:43 PM [place] Approved by: Jorge Sandoval MD on 06/26/2020 5:43 PM [facility] Station ID: [id number]
[2020-06-26 19:09] VITALS: BP 133/77
== END 2020-06-26 19:08 | disposition home or self-care (01) ==
LOC: ED 17:06
DX: R31.0 Gross hematuria (principal); Z87.442 Personal history of urinary calculi; I25.10 Atherosclerotic heart disease of native coronary artery without angina pectoris; Z95.5 Presence of coronary angioplasty implant and graft; Z79.01 Long term (current) use of anticoagulants; Z79.82 Long term (current) use of aspirin; I10 Essential (primary) hypertension; E11.9 Type 2 diabetes mellitus without complications; Z79.84 Long term (current) use of oral hypoglycemic drugs
CPT/HCPCS: 36415; 74177; 80053; 81001; 83690; 85025; 87086; 99283; 99284; Q9967; 81003

== ENCOUNTER 2021-04-16 20:00 | Observation (INO) | payer OTHER ==
--- NOTE | 2021-04-16 20:10 | ED Physician Documentation ---
PD HPI FOCAL NEURO - Stated complaint Stated Complaint: DIZZY - Chief complaint Chief Complaint: Neuro - History obtained from History obtained from: Patient - Additional information Additional information: 60-year-old gentleman with history of A. fib on Eliquis developed an acute disequilibrium at 4:30 PM today. It was associated with a sensation of numbness of the tongue and he has difficulty walking now. Since it started at 430 the disequilibrium has neither gotten better nor worse. It is not associated with headache or other focal weakness or numbness. Prehospital blood sugar in the 120s. Review of Systems Ten Systems: 10 systems reviewed and negative Constitutional: reports: Reviewed and negative Cardiac: reports: Reviewed and negative Respiratory: reports: Dyspnea (He had some shortness of breath while shoveling snow earlier today.) GI: reports: Reviewed and negative PD PAST MEDICAL HISTORY - Past Medical History Cardiovascular: Hypertension, DC Endocrine/Autoimmune: Type 2 diabetes : Kidney stones - Past Surgical History Past Surgical History: Yes Cardiovascular: CABG, Coronary stent - Present Medications Home Medications: Ambulatory Orders Medication Instructions Recorded Confirmed Apixaban [Eliquis] 1 tab PO BID 06/26/20 04/16/21 Aspirin [[place] Aspirin] 1 tab PO DAILY 06/26/20 04/16/21 Atorvastatin Calcium [Lipitor] 1 tab PO DAILY 06/26/20 04/16/21 Isosorbide Mononitrate [Isosorbide 1 tab PO DAILY 06/26/20 04/16/21 Mononitrate ER] Loratadine [Allergy Relief] 1 tab PO DAILY 06/26/20 04/16/21 Losartan [Cozaar] 1 tab PO DAILY 06/26/20 04/16/21 Multivitamin 1 tab PO DAILY 06/26/20 04/16/21 Nitroglycerin [Nitrostat] 1 tab PO PRN PRN 06/26/20 04/16/21 Pantoprazole [Protonix] 1 tab PO DAILY 06/26/20 04/16/21 Potassium Citrate 1,620 mg PO DAILY 06/26/20 04/16/21 Ranolazine [Ranolazine ER] 1 tab PO DAILY 06/26/20 04/16/21 Tamsulosin HCl [Flomax] 1 tab PO DAILY 06/26/20 04/16/21 Topiramate [Topiramate ER] 50 mg PO BID 06/26/20 04/16/21 dilTIAZem HCL [Diltiazem 24Hr ER 1 tab PO DAILY 06/26/20 04/16/21 (Xr)] metFORMIN [Glucophage] 1,000 mg PO BID 06/26/20 04/16/21 - Allergies Allergies/Adverse Reactions: Allergies Allergy/AdvReac Type Severity Reaction Status Date / Time carvedilol Allergy Unknown Verified 04/16/21 20:05 - Social History Does the pt smoke?: No Smoking Status: Never smoker Does the pt drink ETOH?: No Does the pt have substance abuse?: No - Immunizations Immunizations are current?: Yes - POLST Patient has POLST: No PD ED PE NORMAL - Vitals Vital signs reviewed: Yes - General General: Alert and oriented X 3, No acute distress - HEENT HEENT: PERRL, EOMI - Neck Neck: Supple, no meningeal sign, No bony TTP - Cardiac Cardiac: RRR, No murmur - Respiratory Respiratory: No respiratory distress, Clear bilaterally - Abdomen Abdomen: Normal bowel sounds, Soft, Non tender - Back Back: No CVA TTP, No spinal TTP - Derm Derm: Normal color, Warm and dry - Neuro Neuro: Alert and oriented X 3, No motor deficit, No sensory deficit, Normal speech, Other (Ataxia on left-sided gnsrwl-to-buoi and saso-fa-xkie testing consistent with likely a cerebellar issue. Right-sided testing shows no ataxia.) Eye Opening: Spontaneous Motor: Obeys Commands Verbal: Oriented GCS Score: 15 - Psych Psych: Normal mood, Normal affect NIHSS - Time Time: 20:05 - Level of Consciousness Level of consciousness: (0) Alert, Keenly responsive LOC Questions: (0) Answers both Q's correct LOC Commands: (0) Performs both correctly - Gaze Best Gaze: (0) Normal - Visual Visual: (0) No loss - Facial Palsy Facial Palsy: (0) Normal, symmetrical movement - Motor Arms (both separate) Motor Arm (right): (0) No drift Motor Arm (left): (0) No drift - Motor Legs (both separate) Motor Leg (right): (0) No drift Motor Leg (left): (0) No drift - Limb Ataxia Limb Ataxia: (2) Present in 2 limbs - Sensory Sensory: (0) Normal - Best Language Best Language: (0) No aphasia - Dysarthria Dysarthria: (0) Normal - Extinction and Inattention (formally neg Extinction and inattention: (0) No abnormality - Total Score/Results Total Score/Result: 2 Results - Vitals Vitals: Vital Signs - 24 hr 04/16/21 04/16/21 20:02 20:19 Temperature 36.3 C L Heart Rate 84 76 Respiratory 18 18 Rate Blood Pressure 142/91 H 142/91 H O2 Saturation 99 97 Oxygen O2 Source Room air - EKG (time done) 2013 Rate: Rate (enter#) (73) Rhythm: NSR [place]: RAD Intervals: Normal IN QRS: Normal Ischemia: Normal ST segments - Labs Labs: Laboratory Tests 04/16/21 04/16/21 20:17 20:17 WBC 12.3 H RBC 3.69 L Hgb 11.6 L Hct 35.2 L MCV 95.4 H MCH 31.4 H MCHC 33.0 RDW 13.2 Plt Count 219 MPV 10.1 Neut # (Auto) 9.4 H Lymph # (Auto) 1.9 [place] # (Auto) 0.8 Eos # (Auto) 0.1 Baso # (Auto) 0.0 Absolute Nucleated RBC 0.00 Nucleated RBC % 0.0 Sodium 131 L Potassium 3.9 Chloride 99 L Carbon Dioxide 22 Anion Gap 10.0 BUN 13 Creatinine 1.3 H Estimated GFR (MDRD) 56 L Glucose 132 H Calcium 8.8 PD MEDICAL DECISION MAKING - ED course ED course: 60-year-old gentleman presents with what looks like a cerebellar stroke. I spoke with the on-call telestroke neurologist, Dr. Kaye and she confirmed that given his ongoing Eliquis use he is not a TPA candidate. She recommends stopping the Eliquis and she will review the CTA images to make sure there is no large vessel occlusion. She recommends an admission to the hospital and I discussed that we do not have MRI available for the next 4 days. She says that is not mandatory during this admission but recommends a repeat head CT in 24 hours. If there is no large CVA on repeat head CT he can restart his Eliquis at that time. If there is a large CVA on repeat head CT he should wait 2 weeks to restart his Eliquis. He should have aspirin now. CT angiography of the head and neck shows no large vessel occlusion. He does have 20% stenosis of both carotids. Spoke with Dr. Wayne for observation and relayed above recommendations. Departure - Departure Disposition: ED Place in Observation Clinical Impression: Cerebrovascular accident (CVA) Qualifiers: CVA mechanism: unspecified Qualified Code(s): I63.9 - Cerebral infarction, unspecified
[2021-04-16] MEDS ORDERED: iohexoL-300 100 ML VIAL ONE (20:18)
[2021-04-16 20:25] LABS: BASOPHILS % (AUTO) 0.3 %; EOSINOPHILS # (AUTO) 0.1 10^3/uL (0.0-0.7); EOSINOPHILS % (AUTO) 1.1 %; HCT - HEMATOCRIT 35.2 % (42.0-52.0); HGB - HEMOGLOBIN 11.6 g/dL (14.0-18.0); LYMPHOCYTES # (AUTO) 1.9 10^3/uL (1.5-3.5); LYMPHOCYTES % (AUTO) 15.3 %; MEAN CORPUSCULAR HEMOGLOBIN 31.4 pg (27.0-31.0); MEAN CORPUSCULAR VOLUME 95.4 fL (80.0-94.0); MEAN PLATELET VOLUME 10.1 fL (7.4-11.4); MONOCYTES # (AUTO) 0.8 10^3/uL (0.0-1.0); MONOCYTES % (AUTO) 6.2 %; NEUTROPHILS # (AUTO) 9.4 10^3/uL (1.5-6.6); NEUTROPHILS % (AUTO) 76.7 %; PLT - PLATELET COUNT 219 10^3/uL (130-450); RED BLOOD COUNT 3.69 10^6/uL (4.70-6.10); RED CELL DISTRIBUTION WIDTH 13.2 % (12.0-15.0); WHITE BLOOD COUNT 12.3 x10^3/uL (4.8-10.8)
[2021-04-16 20:32] LABS: CALCIUM 8.8 mg/dL (8.5-10.3); CREATININE 1.3 mg/dL (0.6-1.2); POTASSIUM 3.9 mmol/L (3.5-5.0)
[2021-04-16] MEDS ORDERED: ASPIRIN CHEW 81 MG TABLET PO STA (21:04)
[2021-04-16] MEDS: iohexoL-300 100 ML VIAL IVP ONE (21:05)
--- NOTE | 2021-04-16 21:12 | CT Report ---
PROCEDURE: ANGIO HEAD W/WO INDICATIONS: CVA sx CONTRAST: IV CONTRAST: Isovue 300 ml: 80 PO CONTRAST: *NO PO CONTRAST TECHNIQUE: Precontrast 4.5 mm thick angled axial sections acquired from the foramen magnum to the vertex. Afte r the administration of intravenous contrast, 1 mm thick sections acquired through the [place] of [place] is. Postcontrast 4.5 mm thick sections then re-acquired from the foramen magnum to the vertex. 3-di mensional awsjdeh-wistjmbqs-nuesvwpjqn (MIP) and/or volume rendering reformats were acquired of the c entral intracranial vasculature. For radiation dose reduction, the following was used: automated ex posure control, adjustment of mA and/or kV according to patient size. COMPARISON: MR angiography of the head dated 02/02/2016. FINDINGS: Image quality: Excellent. Anterior circulation: Intracranial internal carotid arteries are normal in size and flow. The flow within the paired anterior cerebral arteries is normal and symmetric. The flow within the middle cer ebral arteries is normal and symmetric. The anterior communicating artery is seen. No aneurysms are seen. Posterior circulation: Visualized portions of the vertebral arteries demonstrate normal caliber, and join to form a normal appearing basilar artery. Flow within the posterior cerebral arteries is norm al and symmetric. No aneurysms are seen. CSF spaces: Ventricles are normal in size and shape. Basal cisterns are patent. No extra-axial flu id collections. Brain: No midline shift. No intracranial bleeds or masses. [place]-white matter interface appears int act. Skull and face: Calvarium and facial bones appear intact, without suspicious lesions. Sinuses: Visualized sinuses and mastoids are clear. IMPRESSION: No acute process involving the arterial tree of the head. Reviewed by: Marc Ferguson MD on 04/16/2021 9:11 PM PST Approved by: Marc Ferguson MD on 04/16/2021 9:11 PM PST Station ID: [id number]
--- NOTE | 2021-04-16 21:14 | CT Report ---
PROCEDURE: ANGIO NECK W INDICATIONS: CVA sx CONTRAST: IV CONTRAST: Isovue 300 ml: 80 PO CONTRAST: *NO PO CONTRAST TECHNIQUE: After the administration of intravenous contrast, 1.5 mm axial sections acquired from the aortic arch to the [place] of [place]. Coronal 3-D maximum intensity projection (MIP) and/or volume rendering ref ormats were then performed. For radiation dose reduction, the following was used: automated exposur e control, adjustment of mA and/or kV according to patient size. COMPARISON: None. FINDINGS: Image quality: Excellent. Carotid system: The great vessels demonstrate a conventional anatomy as they arise from the aortic a rc. The origins of the common carotid arteries appear patent. The common carotid arteries demonstr ate normal calibers and courses. There is roughly 50% origin stenosis of the left internal carotid ar amy. Roughly 20% origin stenosis of the right internal carotid artery is present. Posterior circulation: The origins of the vertebral arteries appear patent. The more superior porti ons of the vertebral arteries demonstrate normal course and caliber. They join to form a normal appe aring basilar artery. Soft tissues: Visualized neck soft tissues demonstrate no suspicious abnormalities. The thyroid is normal in size and there are no incidental findings. Moderate calcification of the coronary vasculatu re. Bones: No suspicious bony lesions. Visualized cervical spine appears normally aligned. IMPRESSION: 1. No acute process involving the arterial tree of the neck. 2. Bilateral left greater than right internal carotid artery origin stenoses as described above. 3. Patent bilateral vertebral arteries. 4. Coronary artery disease. The estimate of stenosis included in the report of the imaging study was calculated using the NASCET method CLINICAL RECOMMENDATION STATEMENTS: In patients <35 years with an ITN detected on CT, MRI, or extrathyroidal ultrasound, the Committee re commends further evaluation with dedicated thyroid ultrasound if the nodule is "e1 cm and has no susp icious imaging features, and if the patient has normal life expectancy. In patients "e35 years with an ITN detected on CT, MRI, or extrathyroidal ultrasound, the Committee r ecommends further evaluation with dedicated thyroid ultrasound if the nodule is "e1.5 cm and has no s uspicious imaging features, and if the patient has normal life expectancy. (ACR, 2014) Reviewed by: Marc Ferguson MD on 04/16/2021 9:13 PM PST Approved by: Marc Ferguson MD on 04/16/2021 9:13 PM [facility] Station ID: [id number]
[2021-04-16] MEDS ORDERED: ONDANSETRON 4 MG/2 ML VIAL IVP PRN (21:24)
[2021-04-16] MEDS ORDERED: SODIUM CHLORIDE FLUSH 0.9% 10 ML SYRINGE IVP PRN (21:24)
[2021-04-16] MEDS ORDERED: ACETAMINOPHEN 325 MG TABLET PO PRN (21:24)
--- NOTE | 2021-04-16 21:34 | HISTORY & PHYSICAL EXAMINATION ---
Chief Complaint - Chief Complaint Chief Complaint: tingling/numbness on tip of tongue, dizziness History of Present Illness - Admitted From Admitted From:: [facility] ED - History Obtained From Records Reviewed: yes History obtained from: patient - History of Present Illness HPI Comment/Other: Patient is a 60-year-old male with medical history significant for atrial fibrillation on Eliquis, coronary artery disease status post CABG and stents, hypertension, [facility], GERD, hyperlipidemia, BPH and history of kidney stones who was brought to the ED via EMS with complaining of tingling/numbness in his tongue and dizziness/ataxia. This started suddenly around 4:30 PM while he was having dinner at work. 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 The numbness in his tongue started just after he had bitten into an orange. He tried to stand up and felt very dizzy. Symptoms improved with sitting down. He denied any such symptoms in the morning and no previous occurrence of similar symptoms. In the ED dizziness persisted. When he was transferred from the [facility] to a regular bed in the [facility] room he also r eported dizziness. Work-up in the ED included a CT angio of the head and neck which was largely unremarkable for any acute process. He was presented for admission for further work-up. At bedside he denied headaches, double vision, blurry vision. He also denied chest pain, dyspnea, nausea, vomiting, fever or chills. History - Past Medical History Cardiovascular: reports: Hypertension, High cholesterol, Coronary artery disease, MD, Atrial fibrillation Endocrine/Autoimmune: reports: Type 2 diabetes GI: reports: GERD : reports: Kidney stones MRSA Hx?: No - Past Surgical History Cardiovascular: reports: CABG, Coronary stent - Family & Social History Family History: Mother: Diabetes, Type 2, Father: Diabetes, Type 2 Social History Notes: He lives at home with his . He does not consume alcohol, tobacco products or recreational substances. - POLST Patient has POLST: No POLST Status: Full Code Meds/Allgy - Home Medications Home Medications: Ambulatory Orders Medication Instructions Recorded Confirmed Apixaban [Eliquis] 1 tab PO BID 06/26/20 04/16/21 Aspirin [[place] Aspirin] 1 tab PO DAILY 06/26/20 04/16/21 Atorvastatin Calcium [Lipitor] 1 tab PO DAILY 06/26/20 04/16/21 Isosorbide Mononitrate [Isosorbide 1 tab PO DAILY 06/26/20 04/16/21 Mononitrate ER] Loratadine [Allergy Relief] 1 tab PO DAILY 06/26/20 04/16/21 Losartan [Cozaar] 1 tab PO DAILY 06/26/20 04/16/21 Multivitamin 1 tab PO DAILY 06/26/20 04/16/21 Nitroglycerin [Nitrostat] 1 tab PO PRN PRN 06/26/20 04/16/21 Pantoprazole [Protonix] 1 tab PO DAILY 06/26/20 04/16/21 Potassium Citrate 1,620 mg PO DAILY 06/26/20 04/16/21 Ranolazine [Ranolazine ER] 1 tab PO DAILY 06/26/20 04/16/21 Tamsulosin HCl [Flomax] 1 tab PO DAILY 06/26/20 04/16/21 Topiramate [Topiramate ER] 50 mg PO BID 06/26/20 04/16/21 dilTIAZem HCL [Diltiazem 24Hr ER 1 tab PO DAILY 06/26/20 04/16/21 (Xr)] metFORMIN [Glucophage] 1,000 mg PO BID 06/26/20 04/16/21 - Allergies Allergies/Adverse Reactions: Allergies Allergy/AdvReac Type Severity Reaction Status Date / Time carvedilol Allergy Unknown Verified 04/16/21 20:05 Review of Systems - Constitutional Constitutional: denies: Fatigue, Fever, Weakness, Poor appetite - Eyes Eyes: denies: Pain, Blurred vision, Vision loss, Dipolpia - Ears, Nose & Throat Ears, Nose & Throat: denies: Ear pain, Vertigo, Sore throat - Cardiovascular Cariovascular: reports: Irregular heart rate, Lightheadedness. denies: Chest pain, Edema, Syncope, Exertional dyspnea, Decr. exercise tolerance - Respiratory Respiratory: denies: Cough, Sputum production, Wheezing, SOB at rest, SOB with exertion - Gastrointestinal Gastrointestinal: reports: Reflux/heartburn. denies: Abdominal pain, Abdominal distention, Constipation, Diarrhea, Nausea, Vomiting - Genitourinary Genitourinary: denies: Dysuria, Frequency, Urgency, Hematuria, Incontinence, Flank pain, Nocturia - Musculoskeletal Musculoskeletal: denies: Muscle pain, Back pain, Muscle aches, Stiffness - Integumentary Integumentary: denies: Rash, Pruritis, Lesions, Dryness - Neurological Neurological: reports: Dizziness, Numbness (tongue) - Psychiatric Psychiatric: denies: Depression, Anxiety, Suicidal - Endocrine Endocrine: denies: Polyuria, Polydypsia - Hematologic/Lymphatic Hematologic/Lymphatic: denies: Anemia, Bruising, Petechiae Prior Level of Functionality: Patient is independent of activities of daily living. 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 Exam - Vital Signs Vital Signs: Vital Signs x48h Temp Pulse Resp BP Pulse Ox 04/16/21 20:19 76 18 142/91 H 97 04/16/21 20:02 36.3 C L 84 18 142/91 H 99 - Physical Exam General Appearance: positive: No acute distress, Alert Eyes Bilateral: positive: PERRL, EOMI ENT: positive: No signs of dehydration Neck: positive: No JVD, Trachea midline Respiratory: positive: Chest non-tender, No respiratory distress, Breath sounds nml. negative: Wheezes, Rales, Rhonchi Cardiovascular: positive: No murmur, No gallop, Irregularly irregular Abdomen: positive: Non-tender, No organomegaly, Nml bowel sounds, No distention. negative: Guarding, Rebound Skin: positive: Color nml, No rash, Warm, Dry Extremities: positive: Non-tender, Full ROM, Nml appearance, No pedal edema Neurologic/Psychiatric: positive: Oriented x3, Motor nml, Mood/affect nml, Sensory loss (tondue numbness), Other (dizziness). negative: Weakness, Facial droop, Slurred/abnml speech Conclusion/Plan - Problem List (1) Stroke-like symptoms Conclusion/Plan: This comprises of tongue numbness and dizziness. CT angio of the head and neck was unremarkable for any acute findings. Neurologist at [facility] was contacted by the ED physician. Recommendations was to repeat CT angio of the head in 24 hours. If a significant CVA noted, then to hold Eliquis and resume in 2 weeks. If no findings of CVA then resume Eliquis immediately. Neurochecks ordered. We will check hemoglobin A1c and lipid panel. 2D echo ordered for the morning. Patient was given a full dose of aspirin. We will continue baby aspirin daily. (2) Atrial fibrillation Conclusion/Plan: We will hold patient's Eliquis while working up potential CVA further. We will hold diltiazem to allow for permissive hypertension. (4) Coronary artery disease Conclusion/Plan: Patient is on atorvastatin 80 mg p.o. daily, and aspirin 81 mg p.o. daily Imdur, ranolazine (5) Diabetes mellitus Conclusion/Plan: On Metformin and Trulicity at home. Metformin held. Sliding scale insulin and Accu-Cheks ordered. We will also check hemoglobin A1c. Qualifiers: Diabetes mellitus type: type 2 (6) GERD (gastroesophageal reflux disease) Conclusion/Plan: Pantoprazole 40 mg p.o. daily. - Lab Results Fish Bones: 04/16/21 20:17 04/16/21 20:17 Core Measures - Anticipated LOS I expect patient to be DC'd or transferred within 96 hours.: Yes - DVT/VTE - Prophylaxis VTE/DVT Device ordered at admit?: Yes VTE/DVT Prophylaxis med ordered at admit?: Yes
[2021-04-16 22:10] LABS: B. PARAPERTUSSIS- RESP PCR PAN NOT DETECTED; B. PERTUSSIS- RESP PCR PANEL NOT DETECTED; C. PNEUMONIAE- RESP PCR PANEL NOT DETECTED; CORONAVIRUS 229E-RESP PCR NOT DETECTED; CORONAVIRUS HKU1-RESP PCR NOT DETECTED; CORONAVIRUS NL63-RESP PCR NOT DETECTED; CORONAVIRUS OC43-RESP PCR NOT DETECTED; HUMAN METAPNEUMOVIRUS NOT DETECTED; INFLUENZA A- RESP PCR PANEL NOT DETECTED; INFLUENZA B - RESP PCR PANEL NOT DETECTED; M. PNEUMONIAE- RESP PCR PANEL NOT DETECTED; PARAINFLUENZA VIRUS 1 NOT DETECTED; PARAINFLUENZA VIRUS 2 NOT DETECTED; PARAINFLUENZA VIRUS 3 NOT DETECTED; PARAINFLUENZA VIRUS 4 NOT DETECTED; RHINOVIRUS/ENTEROVIRUS NOT DETECTED; RSV- RESP PCR PANEL NOT DETECTED; SARS-CoV-2 -RESP PCR PANEL NOT DETECTED
[2021-04-16] MEDS: SODIUM CHLORIDE FLUSH 0.9% 10 ML SYRINGE IVP SCH (23:01)
[2021-04-17 05:54] LABS: BASOPHILS % (AUTO) 0.5 %; EOSINOPHILS # (AUTO) 0.1 10^3/uL (0.0-0.7); EOSINOPHILS % (AUTO) 2.3 %; HCT - HEMATOCRIT 36.2 % (42.0-52.0); HGB - HEMOGLOBIN 11.8 g/dL (14.0-18.0); LYMPHOCYTES # (AUTO) 1.8 10^3/uL (1.5-3.5); LYMPHOCYTES % (AUTO) 29.6 %; MEAN CORPUSCULAR HEMOGLOBIN 31.1 pg (27.0-31.0); MEAN CORPUSCULAR HGB CONC 32.6 g/dL (32.0-36.0); MEAN CORPUSCULAR VOLUME 95.3 fL (80.0-94.0); MEAN PLATELET VOLUME 10.3 fL (7.4-11.4); MONOCYTES # (AUTO) 0.5 10^3/uL (0.0-1.0); MONOCYTES % (AUTO) 8.1 %; NEUTROPHILS # (AUTO) 3.7 10^3/uL (1.5-6.6); NEUTROPHILS % (AUTO) 59.2 %; PLT - PLATELET COUNT 229 10^3/uL (130-450); RED CELL DISTRIBUTION WIDTH 13.3 % (12.0-15.0); WHITE BLOOD COUNT 6.2 x10^3/uL (4.8-10.8)
[2021-04-17 06:11] LABS: BUN - BLOOD UREA NITROGEN 13 mg/dL (6-20); CALCIUM 8.8 mg/dL (8.5-10.3); CARBON DIOXIDE - CO2 24 mmol/L (21-32); CHLORIDE 104 mmol/L (101-111); CHOL/HDL RATIO 2.7 (<5.0); CHOLESTEROL 130 mg/dL; CREATININE 1.2 mg/dL (0.6-1.2); GFR - MDRD 62 (>89); GLUCOSE 125 mg/dL (70-100); HDL CHOLESTEROL 49 mg/dL; LDL CHOLESTEROL,CALCULATED 58 mg/dL; LDL/HDL RATIO 1.2 (<3.6); SODIUM 136 mmol/L (135-145); TRIGLYCERIDES 116 mg/dL; VLDL CHOLESTEROL 23 mg/dL
[2021-04-17] MEDS ORDERED: PANTOPRAZOLE 40 MG TABLET PO SCH (07:00)
--- NOTE | 2021-04-17 07:35 | PHARMACY PROGRESS NOTE ---
- Best Possible Medication History Admit Date and Time: 04/16/212123 Processed by: Nursing Medication History completed: Yes As the person ultimately responsible for medication therapy, providers are able to order a medication from an existing home medication list in [facility] via the "Reconcile Routine" prior to Confirmation of that medication by unit support representative. Such practice is discouraged except when the physician, in their clinical judgment, deems that a medical need exists for a medication without regard to previous use.
[2021-04-17] MEDS ORDERED: NITROGLYCERIN SL 0.4 MG TABLET SL PRN (08:07)
[2021-04-17] MEDS: INSULIN ASPART 300 UNIT/3 ML PEN SUBQ SCH ×4 (08:44→20:52)
[2021-04-17] MEDS: TOPIRAMATE 25 MG TABLET PO SCH ×2 (08:54→20:52)
[2021-04-17] MEDS: RANOLAZINE 1000 MG PO SCH ×2 (08:55→20:52)
[2021-04-17] MEDS: SODIUM CHLORIDE FLUSH 0.9% 10 ML SYRINGE IVP SCH ×2 (08:57→20:52)
[2021-04-17] MEDS ORDERED: ASPIRIN CHEW 81 MG TABLET PO SCH (09:00)
[2021-04-17] MEDS ORDERED: TAMSULOSIN 0.4 MG CAPSULE PO SCH (09:00)
[2021-04-17] MEDS ORDERED: diltiaZEM CD 180 MG CAPSULE PO SCH (09:00)
[2021-04-17] MEDS ORDERED: DULoxetine 30 MG CAPSULE PO SCH (09:00)
--- NOTE | 2021-04-17 11:07 | PROVIDER PROGRESS NOTE ---
Assessment/Plan - Problem List (1) Stroke-like symptoms Assessment/Plan: pt's symptoms are solved. he report he has no more dizziness or unsteady when he went to bathroom. PT has evaluation and treatment for pt, PT report his symptoms are resolved as well, and can be safely d/c to home. pt has ECHO study is pending, pt has CAT scan on tonight. pt likely could be d/c after he finished image studies on on tonight. continue Aspirin and Statin now (2) Atrial fibrillation stable HR, resume home Cardizem and continue tele when pt is at hospital. pt might resume his eliquis depend on his image study on tonight (4) Coronary artery disease stable, denies chest pain. resume home meds (5) Diabetes mellitus A1C is pending, continue slide scale, glucose check and hypoglycemia protocol (6) GERD (gastroesophageal reflux disease) Pantoprazole 40 mg p.o. daily. - Current Meds Current Meds: Current Medications Generic Name Dose Route Start Last Admin Trade Name Kings PRN Reason Stop Dose Admin Aspirin 81 mg 04/17/21 09:00 04/17/21 08:54 Aspirin Chew 81 Mg Tablet PO 81 mg DAILY SY Administration Diltiazem HCl 180 mg 04/17/21 09:00 04/17/21 08:53 Diltiazem Cd 180 Mg Capsule PO 180 mg DAILY SY Administration Duloxetine HCl 90 mg 04/17/21 09:00 04/17/21 08:52 Duloxetine 30 Mg Capsule PO 90 mg DAILY SY Administration Insulin Aspart 1 - 5 unit 04/17/21 08:00 04/17/21 08:44 Insulin Aspart 300 Unit/3 Ml Pen SUBQ Not Given 0800,1200,1700,2100 SY Protocol Pantoprazole Sodium 40 mg 04/17/21 07:00 04/17/21 07:25 Pantoprazole 40 Mg Tablet PO 40 mg QDAC SY Administration Patient Own Med: 1 each 04/17/21 09:00 04/17/21 08:55 Ranolazine [ PO Not Given Ranolazine Er] 1,000 BID YS Mg Tab.Er.12h Sodium Chloride 10 ml 04/17/21 01:00 04/17/21 08:57 Sodium Chloride Flush 0.9% 10 Ml Syringe IVP 10 ml 0100,0900,1700 SY Administration Tamsulosin HCl 0.4 mg 04/17/21 09:00 04/17/21 08:53 Tamsulosin 0.4 Mg Capsule PO 0.4 mg DAILY SY Administration Topiramate 50 mg 04/17/21 09:00 04/17/21 08:54 Topiramate 25 Mg Tablet PO 50 mg BID SY Administration - Lab Result Fish Bone Diagrams: 04/17/21 05:45 04/17/21 05:45 - Additional Planning My Orders: My Active Orders 04/17/21 Evaluate and Treat OT [OT] Routine Evaluate and Treat PT [PT] Routine 04/17/21 08:07 Nitroglycerin [Nitrostat] 0.4 mg SL Q5M PRN 04/17/21 09:00 DULoxetine [Cymbalta] 90 mg PO DAILY Patient Own Med [Patient Own Medication] 1 each PO BID Tamsulosin [Flomax] 0.4 mg PO DAILY Topiramate [Topamax] 50 mg PO BID diltiaZEM CD [Cardizem Cd] 180 mg PO DAILY Subjective - Subjective Patient Reports: Feeling Better, Resting Comfortably Objective Vital Signs: Vital Signs - 24 hr 04/16/21 04/16/21 04/16/21 20:02 20:19 22:00 Temperature 36.3 C L 36.4 C L Heart Rate 84 76 Heart Rate [ 77 Brachial] Heart Rate [ Monitoring electrodes] Respiratory 18 18 16 Rate Blood Pressure 142/91 H 142/91 H Blood Pressure 146/77 H [Right Brachial artery] O2 Saturation 99 97 98 04/17/21 04/17/21 04/17/21 03:56 03:59 07:34 Temperature 36.4 C L 36.4 C L 36.4 C L Heart Rate 77 Heart Rate [ 75 Brachial] Heart Rate [ 76 Monitoring electrodes] Respiratory 16 16 16 Rate Blood Pressure Blood Pressure 130/77 125/76 [Right Brachial artery] O2 Saturation 98 99 97 Oxygen O2 Source Room air I&O (Last 24 Hrs): Intake and Output Totals x24h 04/15/21 04/16/21 04/17/21 23:59 23:59 23:59 Intake Total 320 Balance 320 General: Alert, Oriented x3, Cooperative, No acute distress HEENT: Atraumatic Neck: Supple Lymphatic: no adenopathy Neuro: Alert, Non Focal, Oriented Times 3, Other (pt has no focal neurological deficits now) Cardiovascular: Regular rate, Normal S1, Normal S2 Respiratory: Chest non-tender, No respiratory distress Abdomen: Normal bowel sounds, Soft Extremities: Normal pulses - Results Results: Laboratory Results WBC 6.2 x10^3/uL (4.8-10.8) 04/17/21 05:45 RBC 3.80 10^6/uL (4.70-6.10) L 04/17/21 05:45 Hgb 11.8 g/dL (14.0-18.0) L 04/17/21 05:45 Hct 36.2 % (42.0-52.0) L 04/17/21 05:45 MCV 95.3 fL (80.0-94.0) H 04/17/21 05:45 MCH 31.1 pg (27.0-31.0) H 04/17/21 05:45 MCHC 32.6 g/dL (32.0-36.0) 04/17/21 05:45 RDW 13.3 % (12.0-15.0) 04/17/21 05:45 Plt Count 229 10^3/uL (130-450) 04/17/21 05:45 MPV 10.3 fL (7.4-11.4) 04/17/21 05:45 Neut # (Auto) 3.7 10^3/uL (1.5-6.6) 04/17/21 05:45 Lymph # (Auto) 1.8 10^3/uL (1.5-3.5) 04/17/21 05:45 Gordon # (Auto) 0.5 10^3/uL (0.0-1.0) 04/17/21 05:45 Eos # (Auto) 0.1 10^3/uL (0.0-0.7) 04/17/21 05:45 Baso # (Auto) 0.0 10^3/uL (0.0-0.1) 04/17/21 05:45 Absolute Nucleated RBC 0.00 x10^3/uL 04/17/21 05:45 Nucleated RBC % 0.0 /100WBC 04/17/21 05:45 Sodium 136 mmol/L (135-145) 04/17/21 05:45 Potassium 4.0 mmol/L (3.5-5.0) 04/17/21 05:45 Chloride 104 mmol/L (101-111) 04/17/21 05:45 Carbon Dioxide 24 mmol/L (21-32) 04/17/21 05:45 Anion Gap 8.0 (6-13) 04/17/21 05:45 BUN 13 mg/dL (6-20) 04/17/21 05:45 Creatinine 1.2 mg/dL (0.6-1.2) 04/17/21 05:45 Estimated GFR (MDRD) 62 (>89) L 04/17/21 05:45 Glucose 125 mg/dL (70-100) H 04/17/21 05:45 Calcium 8.8 mg/dL (8.5-10.3) 04/17/21 05:45 Triglycerides 116 mg/dL (-149) 04/17/21 05:45 Cholesterol 130 mg/dL (-199) 04/17/21 05:45 LDL Cholesterol, Calc 58 mg/dL (-129) 04/17/21 05:45 VLDL Cholesterol 23 mg/dL 04/17/21 05:45 HDL Cholesterol 49 mg/dL (60-) L 04/17/21 05:45 LDL/HDL Ratio 1.2 (<3.6) 04/17/21 05:45 Cholesterol/HDL Ratio 2.7 (<5.0) 04/17/21 05:45 Nasal Adenovirus (PCR) NOT DETECTED 04/16/21 21:16 Nasal B. parapertussis DNA (PCR) NOT DETECTED 04/16/21 21:16 Nasal Coronavir 229E PCR NOT DETECTED 04/16/21 21:16 Nasal Coronavir HKU1 PCR NOT DETECTED 04/16/21 21:16 Nasal Coronavir NL63 PCR NOT DETECTED 04/16/21 21:16 Nasal Coronavir OC43 PCR NOT DETECTED 04/16/21 21:16 Nasal Enterovir/Rhinovir PCR NOT DETECTED 04/16/21 21:16 Nasal Influenza B PCR NOT DETECTED 04/16/21 21:16 Nasal Influenza A PCR NOT DETECTED 04/16/21 21:16 Nasal Parainfluen 1 PCR NOT DETECTED 04/16/21 21:16 Nasal Parainfluen 2 PCR NOT DETECTED 04/16/21 21:16 Nasal Parainfluen 3 PCR NOT DETECTED 04/16/21 21:16 Nasal Parainfluen 4 PCR NOT DETECTED 04/16/21 21:16 Nasal RSV (PCR) NOT DETECTED 04/16/21 21:16 Nasal B.pertussis DNA PCR NOT DETECTED 04/16/21 21:16 Nasal C.pneumoniae (PCR) NOT DETECTED 04/16/21 21:16 Enrico Human Metapneumo PCR NOT DETECTED 04/16/21 21:16 Nasal M.pneumoniae (PCR) NOT DETECTED 04/16/21 21:16 Nasal SARS-CoV-2 (PCR) NOT DETECTED 04/16/21 21:16 ABX Reporting Has patient been on IV antibiotics over the past 48 hours?: No Current Medications - Current Medications Current Medications: Active Medications Acetaminophen (Acetaminophen 325 Mg Tablet) 650 mg PO Q4HR PRN PRN Reason: Pain 1 to 4 Aspirin (Aspirin Chew 81 Mg Tablet) 81 mg PO DAILY [facility] Last Admin: 04/17/21 08:54 Dose: 81 mg Documented by: Atorvastatin Calcium (Atorvastatin 40 Mg Tablet) 80 mg PO QPM [facility] Diltiazem HCl (Diltiazem Cd 180 Mg Capsule) 180 mg PO DAILY [facility] Last Admin: 04/17/21 08:53 Dose: 180 mg Documented by: Duloxetine HCl (Duloxetine 30 Mg Capsule) 90 mg PO DAILY [facility] Last Admin: 04/17/21 08:52 Dose: 90 mg Documented by: Insulin Aspart (Insulin Aspart 300 Unit/3 Ml Pen) 1 - 5 unit SUBQ 0800,1200,1700,2100 [facility]; Protocol Last Admin: 04/17/21 08:44 Dose: Not Given Documented by: Nitroglycerin (Nitroglycerin Sl 0.4 Mg Tablet) 0.4 mg SL Q5M PRN PRN Reason: Chest Pain Ondansetron HCl (Ondansetron 4 Mg/2 Ml Vial) 4 mg IVP Q6HR PRN PRN Reason: Nausea / Vomiting Pantoprazole Sodium (Pantoprazole 40 Mg Tablet) 40 mg PO QDAC [facility] Last Admin: 04/17/21 07:25 Dose: 40 mg Documented by: Patient Own Med: Ranolazine [ Ranolazine Er] 1,000 Mg Tab.Er.12h 1 each PO BID [facility] Last Admin: 04/17/21 08:55 Dose: Not Given Documented by: Sodium Chloride (Sodium Chloride Flush 0.9% 10 Ml Syringe) 10 ml IVP PRN PRN PRN Reason: NEEDED PER PROVIDER ORDERS Sodium Chloride (Sodium Chloride Flush 0.9% 10 Ml Syringe) 10 ml IVP 0100,0900,1700 [facility] Last Admin: 04/17/21 08:57 Dose: 10 ml Documented by: Tamsulosin HCl (Tamsulosin 0.4 Mg Capsule) 0.4 mg PO DAILY [facility] Last Admin: 04/17/21 08:53 Dose: 0.4 mg Documented by: Topiramate (Topiramate 25 Mg Tablet) 50 mg PO BID [facility] Last Admin: 04/17/21 08:54 Dose: 50 mg Documented by: Apixaban [Eliquis] 5 mg PO BID 06/26/20 Atorvastatin Calcium [Lipitor] 80 mg PO QPM 06/26/20 Isosorbide Mononitrate [Isosorbide Mononitrate ER] 30 mg PO DAILY 06/26/20 Loratadine [Allergy Relief] 10 mg PO BID 06/26/20 Losartan [Cozaar] 50 mg PO DAILY 06/26/20 Multivitamin 1 tab PO DAILY 06/26/20 Nitroglycerin [Nitrostat] 0.4 mg PO Q5M PRN 06/26/20 Pantoprazole [Protonix] 40 mg PO QDAC 06/26/20 Potassium Citrate 1,620 mg PO DAILY 06/26/20 Tamsulosin HCl [Flomax] 0.4 mg PO DAILY 06/26/20 dilTIAZem HCL [Diltiazem 24Hr ER (Xr)] 180 mg PO DAILY 06/26/20 Aspirin EC [Ecotrin] 81 mg PO DAILY 04/17/21 DULoxetine [Cymbalta] 90 mg PO DAILY 04/17/21 Dulaglutide [Trulicity] 1.5 mg SUBQ Q7D 04/17/21 Metformin HCl [Metformin ER Gastric] 1,000 mg PO BID 04/17/21 Ranolazine [Ranolazine ER] 1,000 mg PO BID 04/17/21 Topiramate 50 mg PO BID 04/17/21
[2021-04-17 13:02] LABS: ESTIMATED AVERAGE GLUCOSE 140 mg/dL (70-100); HEMOGLOBIN A1c% 6.5 % (4.27-6.07)
[2021-04-17] MEDS ORDERED: iohexoL-300 100 ML VIAL ONE (19:22)
[2021-04-17] MEDS ORDERED: ATORVASTATIN 40 MG TABLET PO SCH (21:00)
[2021-04-17] MEDS: iohexoL-300 100 ML VIAL IVP ONE (21:53)
--- NOTE | 2021-04-17 22:21 | CT Report ---
PROCEDURE: CT angiogram brain with and without contrast INDICATIONS: ataxia CONTRAST: IV CONTRAST: Isovue 300 ml: 100 PO CONTRAST: *NO PO CONTRAST TECHNIQUE: Precontrast 4.5 mm thick angled axial sections acquired from the foramen magnum to the ve rtex. After the administration of intravenous contrast, 1 mm thick sections acquired through the Ci rcle of Blunt. Postcontrast 4.5 mm thick sections then re-acquired from the foramen magnum to the v ertex. For radiation dose reduction, the following was used: automated exposure control, adjustmen t of mA and/or kV according to patient size. COMPARISON: 04/16/2021 FINDINGS: Image quality: Excellent. Anterior circulation: Intracranial internal carotid arteries are normal in size and flow. The flow within the paired anterior cerebral arteries is normal and symmetric. The flow within the middle cer ebral arteries is normal and symmetric. The anterior communicating artery is seen. No aneurysms are seen. Posterior circulation: Visualized portions of the vertebral arteries demonstrate normal caliber, and join to form a normal appearing basilar artery. Flow within the posterior cerebral arteries is norm al and symmetric. No aneurysms are seen. CSF spaces: Ventricles are normal in size and shape. Basal cisterns are patent. No extra-axial flu id collections. Brain: No midline shift. No intracranial bleeds or masses. Umaña-white matter interface appears int act. Skull and face: Calvarium and facial bones appear intact, without suspicious lesions. Sinuses: Visualized sinuses and mastoids are clear. IMPRESSION: Unremarkable CT angiogram brain without large vessel occlusion, aneurysm or vascular malformation. Unremarkable CT brain without intracranial hemorrhage or mass effect. Reviewed by: Angelito Perez MD on 04/17/2021 9:19 PM [place] Approved by: Angelito Perez MD on 04/17/2021 9:19 PM [place] Station ID: [id number]
--- NOTE | 2021-04-17 22:25 | DISCHARGE SUMMARY ---
Discharge Summary Admit Date: 04/16/21 Discharge Date: 04/17/21 Discharging Provider: Reginald Wayne Primary Care Provider: Jerri Robertson Code Status: Attempt Resuscitation Condition at Discharge: Stable Discharge Disposition: 01 Home, Self Care - DIAGNOSES Admission Diagnoses: Stroke-like symptoms Atrial fibrillation Coronary artery disease Diabetes mellitus GERD Discharge Diagnoses with Status of Each Condition: Stroke-like symptoms: Acute. Resolved Atrial fibrillation: Chronic. Continue home medications Coronary artery disease: Chronic. Continue home medications Diabetes mellitus: Chronic. Controlled HgA1c 6.5. Continue home medications GERD: Chronic. Controlled. Continue home medications - HPI History of Present Illness: Patient is a 60-year-old male with medical history significant for atrial fibrillation on Eliquis, coronary artery disease status post CABG and stents, hypertension, diabetes mellitus type 2 on Trulicity, GERD, hyperlipidemia, BPH and history of kidney stones who was brought to the ED via EMS with complaining of tingling/numbness in his tongue and dizziness/ataxia. This started suddenly around 4:30 PM while he was having dinner at work. 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 The numbness in his tongue started just after he had bitten into an orange. He tried to stand up and felt very dizzy. Symptoms improved with sitting down. He denied any such symptoms in the morning and no previous occurrence of similar symptoms. In the ED dizziness persisted. When he was transferred from the [facility] to a regular bed in the [facility] he also reported dizziness. Work-up in the ED included a CT angio of the head and neck which was largely unremarkable for any acute process. He was presented for admission for further work-up. At bedside he denied headaches, double vision, blurry vision. He also denied chest pain, dyspnea, nausea, vomiting, fever or chills. - HOSPITAL COURSE Hospital Course: Patient was observed in the hospital for 24 hours. In the course of this time his symptoms resolved. Repeat CT scan after brain after 24 hours was negative for any acute intracranial process. 2D echocardiogram done on 04/17/2021 showed overall left ventricular systolic function is normal with an ejection fraction of 55 to 60%. There was impaired relaxation consistent with grade 1 diastolic dysfunction. Regional wall motion abnormality was noted with hypokinesis of the basal and mid inferior wall segments. Patient has previous history of [place] and has undergone coronary artery bypass graft in 1999 and coronary artery stents x4 placed in 2011. Patient has been instructed to follow-up with his primary care physician and/or configuration management architect for an outpatient stress test. Lipid panel was fairly unremarkable. HDL cholesterol was 49. Hemoglobin A1c was 6.5. Patient was discharged in stable condition - ALLERGIES Allergies/Adverse Reactions: Allergies Allergy/AdvReac Type Severity Reaction Status Date / Time carvedilol Allergy Unknown Verified 04/16/21 20:05 - MEDICATIONS Home Medications: Ambulatory Orders Medication Instructions Recorded Confirmed Apixaban [Eliquis] 5 mg PO BID 06/26/20 04/17/21 Atorvastatin Calcium [Lipitor] 80 mg PO QPM 06/26/20 04/17/21 Isosorbide Mononitrate [Isosorbide 30 mg PO DAILY 06/26/20 04/17/21 Mononitrate ER] Loratadine [Allergy Relief] 10 mg PO BID 06/26/20 04/17/21 Losartan [Cozaar] 50 mg PO DAILY 06/26/20 04/17/21 Multivitamin 1 tab PO DAILY 06/26/20 04/16/21 Nitroglycerin [Nitrostat] 0.4 mg PO Q5M PRN 06/26/20 04/17/21 Pantoprazole [Protonix] 40 mg PO QDAC 06/26/20 04/17/21 Potassium Citrate 1,620 mg PO DAILY 06/26/20 04/16/21 Tamsulosin HCl [Flomax] 0.4 mg PO DAILY 06/26/20 04/17/21 dilTIAZem HCL [Diltiazem 24Hr ER 180 mg PO DAILY 06/26/20 04/17/21 (Xr)] Aspirin EC [Ecotrin] 81 mg PO DAILY 04/17/21 04/17/21 DULoxetine [Cymbalta] 90 mg PO DAILY 04/17/21 04/17/21 Dulaglutide [Trulicity] 1.5 mg SUBQ Q7D 04/17/21 04/17/21 Metformin HCl [Metformin ER 1,000 mg PO BID 04/17/21 04/17/21 Gastric] Ranolazine [Ranolazine ER] 1,000 mg PO BID 04/17/21 04/17/21 Topiramate 50 mg PO BID 04/17/21 04/17/21 - PHYSICAL EXAM AT DISCHARGE General Appearance: positive: No acute distress, Alert Eyes Bilateral: positive: PERRL, EOMI ENT: positive: No signs of dehydration Neck: positive: No JVD, Trachea midline Respiratory: positive: Chest non-tender, No respiratory distress, Breath sounds nml. negative: Wheezes, Rales, Rhonchi Cardiovascular: positive: No murmur, Irregularly irregular Abdomen: positive: Non-tender, No organomegaly, Nml bowel sounds, No distention. negative: Guarding, Rebound Back: positive: Nml inspection Skin: positive: Color nml, No rash, Warm, Dry Extremities: positive: Non-tender, Full ROM, Nml appearance, No pedal edema Neurologic/Psychiatric: positive: Oriented x3, Motor nml, Sensation nml, Mood/affect nml - LABS Result Diagrams: 04/17/21 05:45 04/17/21 05:45 - TIME SPENT Time Spent in Discharge (Minutes): 15
--- NOTE | 2021-04-17 22:27 | Discharge Plan ---
Discharge Plan Problem Reviewed?: Yes Disposition: Home, Self Care Condition: Stable Diet: Diabetic Activity Restrictions: Activity as Tolerated Shower Restrictions: No Driving Restrictions: No Weight Bearing: Full Weight Health Concerns: Needed on 04/16/2021 with sudden onset of tingling/numbness on the tip of your tongue and dizziness. Work-up in the ED included a CT angio of the head and neck which was unremarkable. You were admitted and observed over a 24-hour. After which the CT angio of your head was repeated and image still showed no acute change. Over the course of the 24 hours your symptoms resolved. Consequently you are being discharged home in stable condition. You may resume your home medications at home doses. The above plan was discussed with you you expressed understanding and agreement. You may follow-up with your primary care physician as needed. No Smoking: If you smoke, Please STOP! Call for help. Follow-up with: ISABEL MARCELO MD [Primary Care Provider] -
[2021-04-17 22:38] VITALS: BP 134/74
== END 2021-04-17 23:00 | disposition home or self-care (01) ==
LOC: ED 20:00 → MS2 21:24
PROVIDERS: ADMIT Internal Medicine; ATTEND Internal Medicine
DX: R20.0 Anesthesia of skin (principal); R42 Dizziness and giddiness; I48.20 Chronic atrial fibrillation, unspecified; E11.9 Type 2 diabetes mellitus without complications; I25.10 Atherosclerotic heart disease of native coronary artery without angina pectoris; K21.9 Gastro-esophageal reflux disease without esophagitis; N40.0 Benign prostatic hyperplasia without lower urinary tract symptoms; I10 Essential (primary) hypertension; E78.5 Hyperlipidemia, unspecified; Z79.01 Long term (current) use of anticoagulants; Z79.84 Long term (current) use of oral hypoglycemic drugs; Z79.82 Long term (current) use of aspirin; Z95.1 Presence of aortocoronary bypass graft; Z95.5 Presence of coronary angioplasty implant and graft; I25.2 Old myocardial infarction; Z79.899 Other long term (current) drug therapy; Z20.822 Contact with and (suspected) exposure to COVID-19
CPT/HCPCS: 0202U; 36415; 70496; 70498; 80048; 80061; 83036; 85025; 93005; 93306; 97161; 99283; 99285; A9270; G0378; Q9967; 83721

== ENCOUNTER 2022-03-16 06:29 | Emergency (ER) | payer OTHER ==
[2022-03-16 06:56] LABS: BASOPHILS % (AUTO) 0.4 %; EOSINOPHILS # (AUTO) 0.1 10^3/uL (0.0-0.7); EOSINOPHILS % (AUTO) 0.9 %; HCT - HEMATOCRIT 40.2 % (42.0-52.0); HGB - HEMOGLOBIN 13.1 g/dL (14.0-18.0); LYMPHOCYTES # (AUTO) 1.3 10^3/uL (1.5-3.5); LYMPHOCYTES % (AUTO) 13.9 %; MEAN CORPUSCULAR HEMOGLOBIN 31.7 pg (27.0-31.0); MEAN CORPUSCULAR HGB CONC 32.6 g/dL (32.0-36.0); MEAN CORPUSCULAR VOLUME 97.3 fL (80.0-94.0); MEAN PLATELET VOLUME 10.3 fL (7.4-11.4); MONOCYTES # (AUTO) 0.8 10^3/uL (0.0-1.0); NEUTROPHILS % (AUTO) 75.5 %; PLT - PLATELET COUNT 303 10^3/uL (130-450); RED BLOOD COUNT 4.13 10^6/uL (4.70-6.10); RED CELL DISTRIBUTION WIDTH 13.1 % (12.0-15.0); WHITE BLOOD COUNT 9.3 x10^3/uL (4.8-10.8)
[2022-03-16 07:11] LABS: ALBUMIN 4.1 g/dL (3.2-5.5); ALBUMIN/GLOBULIN RATIO 1.2 (1.0-2.2); BILIRUBIN,TOTAL 0.6 mg/dL (0.2-1.0); CALCIUM 9.1 mg/dL (8.5-10.3); CREATININE 1.5 mg/dL (0.6-1.2); POTASSIUM 4.7 mmol/L (3.5-5.0); TOTAL PROTEIN 7.6 g/dL (6.7-8.2)
[2022-03-16] MEDS ORDERED: SODIUM CHLORIDE 0.9% 1,000 ML IV STA (07:45)
--- NOTE | 2022-03-16 07:48 | ED Physician Documentation ---
History of Present Illness - Stated complaint Stated Complaint: CHEST PX/COUGH/FEVER - Chief complaint Chief Complaint: Cardiac - History obtained from History obtained from: Patient - Additonal information Additional information: The patient comes to the emergency department chief complaint of syncopal episode this morning. Patient's states it was extremely brief and lasted only about 1 second. The patient states he has had a viral illness for the last 4 days and just has not been feeling well. The rest of his family has had the same thing. He states he has been coughing and has had sinus congestion and some right ear pain with this. He states he had gotten up and was going into the kitchen to get his coffee when he suddenly felt lightheaded and began to fall to the floor. Patient does not remember getting onto the floor, but the patient's states she was right there and was able to grab him and helped lower him to the floor so he was not injured. The patient immediately regained consciousness upon being lowered to the floor and denied any other complaints. The patient states he feels better now. He does admit that he has not been drinking as much water as he usually does since he has been sick. He has also had some lightheadedness. No palpitations or chest pain. No shortness of breath. No other complaints at this time. The patient states he is otherwise healthy does not have any other medical problems, though his records reveal that he does have a history of A. fib, coronary artery disease, hyperlipidemia, and hypertension. He does note that he has never had a syncopal episode before. Review of Systems Ten Systems: 10 systems reviewed and negative Constitutional: reports: Reviewed and negative Eyes: reports: Reviewed and negative Ears: reports: Ear pain Nose: reports: Rhinorrhea / runny nose, Congestion, Sinus pressure / pain Throat: reports: Reviewed and negative Cardiac: reports: Reviewed and negative Respiratory: reports: Cough GI: reports: Reviewed and negative : reports: Reviewed and negative Skin: reports: Reviewed and negative Musculoskeletal: reports: Reviewed and negative Neurologic: reports: Syncope Psychiatric: reports: Reviewed and negative Endocrine: reports: Reviewed and negative Immunocompromised: reports: Reviewed and negative PD PAST MEDICAL HISTORY - Past Medical History Cardiovascular: Hypertension, High cholesterol, Coronary artery disease, PA, Atrial fibrillation Endocrine/Autoimmune: Type 2 diabetes GI: GERD : Kidney stones - Past Surgical History Past Surgical History: Yes Cardiovascular: CABG, Coronary stent - Present Medications Home Medications: Ambulatory Orders Medication Instructions Recorded Confirmed Apixaban [Eliquis] 5 mg PO BID 06/26/20 04/17/21 Atorvastatin Calcium [Lipitor] 80 mg PO QPM 06/26/20 04/17/21 Isosorbide Mononitrate [Isosorbide 30 mg PO DAILY 06/26/20 04/17/21 Mononitrate ER] Loratadine [Allergy Relief] 10 mg PO BID 06/26/20 04/17/21 Losartan [Cozaar] 50 mg PO DAILY 06/26/20 04/17/21 Multivitamin 1 tab PO DAILY 06/26/20 04/16/21 Nitroglycerin [Nitrostat] 0.4 mg PO Q5M PRN 06/26/20 04/17/21 Pantoprazole [Protonix] 40 mg PO QDAC 06/26/20 04/17/21 Potassium Citrate 1,620 mg PO DAILY 06/26/20 04/16/21 Tamsulosin HCl [Flomax] 0.4 mg PO DAILY 06/26/20 04/17/21 dilTIAZem HCL [Diltiazem 24Hr ER 180 mg PO DAILY 06/26/20 04/17/21 (Xr)] Aspirin EC [Ecotrin] 81 mg PO DAILY 04/17/21 04/17/21 DULoxetine [Cymbalta] 90 mg PO DAILY 04/17/21 04/17/21 Dulaglutide [Trulicity] 1.5 mg SUBQ Q7D 04/17/21 04/17/21 Metformin HCl [Metformin ER 1,000 mg PO BID 04/17/21 04/17/21 Gastric] Ranolazine [Ranolazine ER] 1,000 mg PO BID 04/17/21 04/17/21 Topiramate 50 mg PO BID 04/17/21 04/17/21 - Allergies Allergies/Adverse Reactions: Allergies Allergy/AdvReac Type Severity Reaction Status Date / Time carvedilol Allergy Unknown Verified 04/16/21 20:05 - Social History Does the pt smoke?: No Smoking Status: Never smoker Does the pt drink ETOH?: No Does the pt have substance abuse?: No - Immunizations Immunizations are current?: Yes - POLST Patient has POLST: No POLST Status: Full Code PD ED PE NORMAL - Vitals Vital signs reviewed: Yes - General General: Alert and oriented X 3, No acute distress, Well developed/nourished - HEENT HEENT: Atraumatic, PERRL, EOMI, Moist mucous membranes - Neck Neck: Supple, no meningeal sign - Cardiac Cardiac: RRR, No murmur, Strong equal pulses - Respiratory Respiratory: No respiratory distress, Clear bilaterally - Abdomen Abdomen: Soft, Non tender, Non distended - Derm Derm: Normal color, Warm and dry, No rash - Extremities Extremities: No deformity, No edema, No calf tenderness / cord - Neuro Neuro: Alert and oriented X 3, 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, Normal speech - Psych Psych: Normal mood, Normal affect Results - Vitals Vitals: Oxygen O2 Source Room air - Labs Labs: Laboratory Tests 03/16/22 03/16/22 03/16/22 06:49 06:49 06:49 WBC 9.3 RBC 4.13 L Hgb 13.1 L Hct 40.2 L MCV 97.3 H MCH 31.7 H MCHC 32.6 RDW 13.1 Plt Count 303 MPV 10.3 Neut # (Auto) 7.0 H Lymph # (Auto) 1.3 L [place] # (Auto) 0.8 Eos # (Auto) 0.1 Baso # (Auto) 0.0 Absolute Nucleated RBC 0.00 Nucleated RBC % 0.0 Sodium 134 L Potassium 4.7 Chloride 101 Carbon Dioxide 21 Anion Gap 12.0 BUN 23 H Creatinine 1.5 H Estimated GFR (MDRD) 48 L Glucose 198 H Calcium 9.1 Total Bilirubin 0.6 AST 16 ALT 16 Alkaline Phosphatase 54 Troponin I High Sens 5.0 Total Protein 7.6 Albumin 4.1 Globulin 3.5 Albumin/Globulin Ratio 1.2 Lipase 26 PD MEDICAL DECISION MAKING - ED course Complexity details: reviewed results, re-evaluated patient, considered differential, d/w patient ED course: The patient was worked up with labs, EKG, and chest x-ray, and he was given a liter of 0.9 normal saline. Work-up was negative, and I did not feel there was a high likelihood of a cardiac etiology or other serious cause of the sx. We have discussed symptomatic management at home as well as the usual indications for return. Departure - Departure Disposition: 01 Home, Self Care Clinical Impression: Viral syndrome, Dehydration Syncope Qualifiers: Syncope type: vasovagal syncope Qualified Code(s): R55 - Syncope and collapse Condition: Stable Instructions: ED Dehydration, ED Syncope Vasovagal, ED Viral Syndrome Comments: Your labs and EKG look great, other than your blood sugar being elevated at 198. There is no evidence of a emergent condition causing your fainting episode today. Most likely, it is a combination of the stress to your body from the viral illness you are fighting, combined with some dehydration. You have been hydrated with IV fluids in the emergency department today. Please drink 8 to 10 glasses of water each day while you are sick to help prevent this from happening again. Get plenty of rest. You will likely be sick for anywhere from several days to a couple of weeks, though the illness will progressively improve. You may follow-up with your primary doctor as needed. Forms: Activity restrictions Discharge Date/Time: 03/16/22 09:13
[2022-03-16 09:14] VITALS: BP 140/68
--- NOTE | 2022-03-16 11:19 | XRAY Report ---
PROCEDURE: Chest 1 View X-Ray INDICATIONS: Chest pain TECHNIQUE: One view of the chest was acquired. COMPARISON: Chest x-ray 05/20/2019 FINDINGS: Surgical changes and devices: Sternal wires and hilar clips. Lungs and pleura: No pleural effusions or pneumothorax. Lungs are clear. Mediastinum: Mediastinal contours appear normal. Heart size is normal. Bones and chest wall: No suspicious bony lesions. Overlying soft tissues appear unremarkable. IMPRESSION: No acute pulmonary process. The above findings are concordant with preliminary report. Reviewed by: Ariana Diaz MD on 03/16/2022 11:18 AM [facility] Approved by: Ariana Diaz MD on 03/16/2022 11:18 AM [facility] Station ID: [id number]
== END 2022-03-16 09:13 | disposition home or self-care (01) ==
LOC: ED 06:29
DX: E86.0 Dehydration (principal); B34.9 Viral infection, unspecified; R55 Syncope and collapse; E11.65 Type 2 diabetes mellitus with hyperglycemia; Z79.84 Long term (current) use of oral hypoglycemic drugs; I48.91 Unspecified atrial fibrillation; Z79.01 Long term (current) use of anticoagulants; Z79.82 Long term (current) use of aspirin; I10 Essential (primary) hypertension; E78.5 Hyperlipidemia, unspecified; I25.10 Atherosclerotic heart disease of native coronary artery without angina pectoris; Z95.1 Presence of aortocoronary bypass graft; Z79.899 Other long term (current) drug therapy
CPT/HCPCS: 36415; 80053; 83690; 84484; 85025; 93005; 96360; 99284

== ENCOUNTER 2022-04-19 16:20 | Emergency (ER) | payer OTHER ==
--- OUTSIDE RECORDS SUMMARY | 2022-04-19 16:26 | EXTERNAL MEDICAL SUMMARY RPT | Continuity of Care Document ---
:1960 Author Organization [employer] Address [address] [place] [address] Phone Allergies and Intolerances date description facility type (no date) No Known Drug Allergies [facility] (unkn own) Encounters No information. Functional Status No information. Immunizations No information. Medications No information. Problems date description facility 2022-01-25 09:45 Encounter for preprocedural [facility] examination 2022-01-25 09:45 Contact with and (suspected) exposure [facility] COVID-19 2022-01-25 23:44 Encounter for preprocedural [facility] examination 2022-01-25 23:44 [facility] 06:33 Encounter for screening for malignant [facility] 2022-01-27 06:53 Encounter for screening for malignant [facility] 2022-01-27 08:36 Encounter for screening for malignant [facility] 2022-01-27 08:51 Encounter for screening for malignant [facility] 2022-01-27 08:53 Encounter for screening for malignant [facility] Procedures No information. Results/Labs test date author facility value unit interpret ation Result panel 1 (unknown) (no (unknown) (unknown) (no value) (units (unk nown) date) unknown) (unknown) (no (unknown) (unknown) COVID- (units (u nknown) date) unknown) (unknown) (no (unknown) (unknown) 01/25/22 (units (unkno wn) date) unknown) (unknown) (no (unknown) (unknown) (units (unkno wn) date) unknown) (unknown) (no (unknown) (unknown) Age/Sex: 61 / M (units (unknown) date) Date of Service: unknown) (unknown) (no (unknown) (unknown) Allergies (units (unkn own) date) unknown) (unknown) (no (unknown) (unknown) [place], [place] (units ( unknown) date) [id number] unknown) (unknown) (no (unknown) (unknown) Attending Dr: (units ( unknown) date) Yoan York MD unknown) (unknown) (no (unknown) (unknown) : 1960 (units (unknown) date) Acct:[id number] unknown) (unknown) (no (unknown) (unknown) Dept at (units (unkno wn) date) . unknown) (unknown) (no (unknown) (unknown) Documented By: (units (unknown) date) Yoan York MD unknown) 01/25/22 0944 (unknown) (no (unknown) (unknown) Draft (units (unkno wn) date) unknown) (unknown) (no (unknown) (unknown) Evaluation/Scree (units (unknown) date) eben for possible unknown) COVID-19 completed?: Yes- COVID-19 CPT (unknown) (no (unknown) (unknown) Intake Note: (units (u nknown) date) unknown) (unknown) (no (unknown) (unknown) Intake (units (unkno wn) date) unknown) (unknown) (no (unknown) (unknown) [facility] (units (unknown) date) unknown) (unknown) (no (unknown) (unknown) Loc: [facility] (units (unkno wn) date) unknown) (unknown) (no (unknown) (unknown) No Known Drug (units ( unknown) date) Allergies Allergy unknown) (Unverified 08/28/20 09:34) (unknown) (no (unknown) (unknown) Note (units (unkno wn) date) unknown) (unknown) (no (unknown) (unknown) Nurse Office (units (u nknown) date) Visit unknown) (unknown) (no (unknown) (unknown) PRE-PROCEDURE (units ( unknown) date) COVID TEST. PT. unknown) DENIES ANY SYMPTOMS. TEST EXPLAINED AND PT. (unknown) (no (unknown) (unknown) Patient: (units (unkno wn) date) Krystian Sosa unknown) MR#: [id number] (unknown) (no (unknown) (unknown) Reason For Visit (units (unknown) date) unknown) (unknown) (no (unknown) (unknown) Signed By: (units (unk nown) date) unknown) (unknown) (no (unknown) (unknown) Smoking Status: (units (unknown) date) Never smoker unknown) (unknown) (no (unknown) (unknown) TOLERATED WELL. (units (unknown) date) unknown) (unknown) (no (unknown) (unknown) This note may (units ( unknown) date) have been all or unknown) partially generated using voice recognition (unknown) (no (unknown) (unknown) Tobacco Status (units (unknown) date) unknown) (unknown) (no (unknown) (unknown) Visit Reasons: (units (unknown) date) [facility] unknown) (unknown) (no (unknown) (unknown) have occurred. (units (unknown) date) If there are any unknown) questions, please contact the Medical Records (unknown) (no (unknown) (unknown) may occur. (units (unk nown) date) Occasional unknown) wrong-word or 'sound-alike' substitutions may have (unknown) (no (unknown) (unknown) occurred due to (units (unknown) date) the inherent unknown) limitations of voice recognition software. Please (unknown) (no (unknown) (unknown) read the note (units ( unknown) date) carefully and unknown) recognize, using context, where these substitutions (unknown) (no (unknown) (unknown) software. (units (unkn own) date) Although every unknown) effort is made to edit content, pipe caulker errors Result panel 2 (unknown) (no date) (unknown) (unknown) Negative (units (unkn own) unknown) (unknown) (no date) (unknown) (unknown) Negative (units (unkn own) unknown) Result panel 3 (unknown) (no (unknown) (unknown) (no value) (units (unk nown) date) unknown) (unknown) (no (unknown) (unknown) COVID-19 (units (u nknown) date) unknown) (unknown) (no (unknown) (unknown) 01/25/22 1316 (units ( unknown) date) unknown) (unknown) (no (unknown) (unknown) 01/25/22 (units (unkno wn) date) unknown) (unknown) (no (unknown) (unknown) [id number] (units (unkno wn) date) unknown) (unknown) (no (unknown) (unknown) Age/Sex: 61 / M (units (unknown) date) Date of Service: unknown) (unknown) (no (unknown) (unknown) Allergies (units (unkn own) date) unknown) (unknown) (no (unknown) (unknown) [place], [place] (units ( unknown) date) [id number] unknown) (unknown) (no (unknown) (unknown) Attending Dr: (units ( unknown) date) Yoan York MD unknown) (unknown) (no (unknown) (unknown) : 1960 (units (unknown) date) Acct:[id number] unknown) (unknown) (no (unknown) (unknown) Dept at (units (unkno wn) date) . unknown) (unknown) (no (unknown) (unknown) Documented By: (units (unknown) date) Yoan York MD unknown) 01/25/22 0944 (unknown) (no (unknown) (unknown) Evaluation/Scree (units (unknown) date) eben for possible unknown) COVID-19 completed?: Yes- COVID-19 CPT (unknown) (no (unknown) (unknown) Intake Note: (units (u nknown) date) unknown) (unknown) (no (unknown) (unknown) Intake (units (unkno wn) date) unknown) (unknown) (no (unknown) (unknown) [facility] (units (unknown) date) unknown) (unknown) (no (unknown) (unknown) Loc: [facility] (units (unkno wn) date) unknown) (unknown) (no (unknown) (unknown) No Known Drug (units ( unknown) date) Allergies Allergy unknown) (Unverified 08/28/20 09:34) (unknown) (no (unknown) (unknown) Note (units (unkno wn) date) unknown) (unknown) (no (unknown) (unknown) Nurse Office (units (u nknown) date) Visit unknown) (unknown) (no (unknown) (unknown) PRE-PROCEDURE (units ( unknown) date) COVID TEST. PT. unknown) DENIES ANY SYMPTOMS. TEST EXPLAINED AND PT. (unknown) (no (unknown) (unknown) Patient: (units (unkno wn) date) Krystian Sosa unknown) MR#: [id number] (unknown) (no (unknown) (unknown) Reason For Visit (units (unknown) date) unknown) (unknown) (no (unknown) (unknown) Signed By: (units (unk nown) date) <Electronically unknown) signed by Yoan York MD> (unknown) (no (unknown) (unknown) Signed (units (unkno wn) date) unknown) (unknown) (no (unknown) (unknown) Smoking Status: (units (unknown) date) Never smoker unknown) (unknown) (no (unknown) (unknown) TOLERATED WELL. (units (unknown) date) unknown) (unknown) (no (unknown) (unknown) This note may (units ( unknown) date) have been all or unknown) partially generated using voice recognition (unknown) (no (unknown) (unknown) Tobacco Status (units (unknown) date) unknown) (unknown) (no (unknown) (unknown) Visit Reasons: (units (unknown) date) [facility] unknown) (unknown) (no (unknown) (unknown) have occurred. (units (unknown) date) If there are any unknown) questions, please contact the Medical Records (unknown) (no (unknown) (unknown) may occur. (units (unk nown) date) Occasional unknown) wrong-word or 'sound-alike' substitutions may have (unknown) (no (unknown) (unknown) occurred due to (units (unknown) date) the inherent unknown) limitations of voice recognition software. Please (unknown) (no (unknown) (unknown) read the note (units ( unknown) date) carefully and unknown) recognize, using context, where these substitutions (unknown) (no (unknown) (unknown) software. (units (unkn own) date) Although every unknown) effort is made to edit content, pipe caulker errors Result panel 4 (unknown) (no (unknown) (unknown) (no value) (units (unk nown) date) unknown) (unknown) (no (unknown) (unknown) (Trulicity) (units (un known) date) unknown) (unknown) (no (unknown) (unknown) (past 8 hours): (units (unknown) date) unknown) (unknown) (no (unknown) (unknown) 07:01 (units (unkno wn) date) unknown) (unknown) (no (unknown) (unknown) 01/27/22 0759 (units ( unknown) date) unknown) (unknown) (no (unknown) (unknown) 01/27/22 0800 (units ( unknown) date) unknown) (unknown) (no (unknown) (unknown) 01/27/22 (units (unkno wn) date) unknown) (unknown) (no (unknown) (unknown) [id number] (units (unkno wn) date) unknown) (unknown) (no (unknown) (unknown) 61-year-old male (units (unknown) date) with anemia unknown) colonoscopy is pursued today for colon cancer (unknown) (no (unknown) (unknown) ASA Class (for (units (unknown) date) procedural unknown) sedation): II (unknown) (no (unknown) (unknown) Age/Sex: 61 / M (units (unknown) date) unknown) (unknown) (no (unknown) (unknown) Allergies (units (unkn own) date) unknown) (unknown) (no (unknown) (unknown) Allergy/AdvReac (units (unknown) date) Type Severity unknown) Reaction Status Date / Time (unknown) (no (unknown) (unknown) Appearance: (units (un known) date) grossly normal unknown) (unknown) (no (unknown) (unknown) Assessment + Plan (units (unknown) date) narrative: unknown) (unknown) (no (unknown) (unknown) Assessment + Plan (units (unknown) date) unknown) (unknown) (no (unknown) (unknown) BPH w urinary (units ( unknown) date) obs/LUTS unknown) (unknown) (no (unknown) (unknown) Blood Pressure (units (unknown) date) 122/79 unknown) (unknown) (no (unknown) (unknown) COVID-19 status: (units (unknown) date) Negative unknown) (unknown) (no (unknown) (unknown) COVID-19 (units (unkno wn) date) unknown) (unknown) (no (unknown) (unknown) Cardio (units (unkno wn) date) unknown) (unknown) (no (unknown) (unknown) Changes to H+P: (units (unknown) date) No unknown) (unknown) (no (unknown) (unknown) Chest (units (unkno wn) date) unknown) (unknown) (no (unknown) (unknown) Chest: normal (units ( unknown) date) inspection of the unknown) chest (unknown) (no (unknown) (unknown) Chief complaint: (units (unknown) date) SDC unknown) (unknown) (no (unknown) (unknown) Const (units (unkno wn) date) unknown) (unknown) (no (unknown) (unknown) Criteria for (units (u nknown) date) continued unknown) procedure: Possibility delay results in more complex (unknown) (no (unknown) (unknown) Critical Care (units ( unknown) date) time: unknown) (unknown) (no (unknown) (unknown) : 1960 (units (unknown) date) Acct:[id number] unknown) (unknown) (no (unknown) (unknown) Date Patient (units (u nknown) date) Seen: 01/27/22 unknown) (unknown) (no (unknown) (unknown) Date of Service: (units (unknown) date) 01/27/22 unknown) (unknown) (no (unknown) (unknown) Diabetes (units (unkno wn) date) unknown) (unknown) (no (unknown) (unknown) Effort + (units (unkno wn) date) Inspection: normal unknown) respiratory effort (unknown) (no (unknown) (unknown) Exam (units (unkno wn) date) unknown) (unknown) (no (unknown) (unknown) Extrem (units (unkno wn) date) unknown) (unknown) (no (unknown) (unknown) Eyes (units (unkno wn) date) unknown) (unknown) (no (unknown) (unknown) Family + Social (units (unknown) date) History unknown) (unknown) (no (unknown) (unknown) Family History (units (unknown) date) (Reviewed 01/27/22 unknown) @ 07:58 by Thomas Bradley MD) (unknown) (no (unknown) (unknown) GI (units (unkno wn) date) unknown) (unknown) (no (unknown) (unknown) General: (units (unkno wn) date) appearance normal, unknown) both eyes and all related structures (unknown) (no (unknown) (unknown) General: (units (unkno wn) date) cooperative unknown) (unknown) (no (unknown) (unknown) General: no (units (un known) date) rashes or lesions unknown) noted (unknown) (no (unknown) (unknown) General: normal (units (unknown) date) to inspection and unknown) no pedal edema (unknown) (no (unknown) (unknown) General: patient (units (unknown) date) alert and patient unknown) awake (unknown) (no (unknown) (unknown) HENMT (units (unkno wn) date) unknown) (unknown) (no (unknown) (unknown) Head: normal to (units (unknown) date) inspection unknown) (unknown) (no (unknown) (unknown) Heart attack (units (u nknown) date) unknown) (unknown) (no (unknown) (unknown) History + (units (unkn own) date) Physical Report unknown) (unknown) (no (unknown) (unknown) History + (units (unkn own) date) Physical unknown) reviewed/Exam performed by Physician: Yes (unknown) (no (unknown) (unknown) History of (units (unk nown) date) Present Illness unknown) (unknown) (no (unknown) (unknown) History of (units (unk nown) date) nephrolithotomy unknown) with removal of calculi (unknown) (no (unknown) (unknown) Home Medications (units (unknown) date) and Allergies unknown) (unknown) (no (unknown) (unknown) Home Medications (units (unknown) date) unknown) (unknown) (no (unknown) (unknown) Hypertension (units (u nknown) date) unknown) (unknown) (no (unknown) (unknown) I reviewed my (units ( unknown) date) office note. No unknown) changes. (unknown) (no (unknown) (unknown) I spent a total (units (unknown) date) of [] minutes of unknown) critical care time on this patient's care (unknown) (no (unknown) (unknown) Inspection: (units (un known) date) normal to unknown) inspection (unknown) (no (unknown) (unknown) Interval Note (units ( unknown) date) unknown) (unknown) (no (unknown) (unknown) [facility] (units (unknown) date) [address] unknown) [place] [address] (unknown) (no (unknown) (unknown) Medical History (units (unknown) date) (Reviewed 01/27/22 unknown) @ 07:58 by Thomas Bradley MD) (unknown) (no (unknown) (unknown) Medication (units (unk nown) date) Instructions unknown) Recorded Confirmed Type (unknown) (no (unknown) (unknown) Meds (units (unkno wn) date) unknown) (unknown) (no (unknown) (unknown) Mother Diabetes (units (unknown) date) mellitus unknown) (unknown) (no (unknown) (unknown) Narrative: (units (unk nown) date) unknown) (unknown) (no (unknown) (unknown) Neck (units (unkno wn) date) unknown) (unknown) (no (unknown) (unknown) Neck: normal (units (u nknown) date) visual inspection unknown) (unknown) (no (unknown) (unknown) Neuro (units (unkno wn) date) unknown) (unknown) (no (unknown) (unknown) No Known Drug (units ( unknown) date) Allergies Allergy unknown) Verified 01/27/22 06:51 (unknown) (no (unknown) (unknown) Oxygen Delivery (units (unknown) date) Method Room Air unknown) (unknown) (no (unknown) (unknown) Patient History (units (unknown) date) unknown) (unknown) (no (unknown) (unknown) Patient: (units (unkno wn) date) Krystian Sosa MR#: unknown) [id number] (unknown) (no (unknown) (unknown) Personal history (units (unknown) date) of urinary calculi unknown) (unknown) (no (unknown) (unknown) Pre-operative (units ( unknown) date) Note unknown) (unknown) (no (unknown) (unknown) Provider: (units (unkn own) date) Thomas Bradley MD unknown) (unknown) (no (unknown) (unknown) Psych (units (unkno wn) date) unknown) (unknown) (no (unknown) (unknown) Pulse Oximetry 99 (units (unknown) date) unknown) (unknown) (no (unknown) (unknown) Pulse Rate 75 (units ( unknown) date) unknown) (unknown) (no (unknown) (unknown) ROS: Yes All (units (u nknown) date) systems reviewed unknown) with the patient and are negative except as (unknown) (no (unknown) (unknown) Rate: regular (units ( unknown) date) rate unknown) (unknown) (no (unknown) (unknown) Resp (units (unkno wn) date) unknown) (unknown) (no (unknown) (unknown) Respiratory Rate (units (unknown) date) 12 unknown) (unknown) (no (unknown) (unknown) Result date/Date (units (unknown) date) tested (Pos, unknown) Neg/Pending): 01/25/22 (unknown) (no (unknown) (unknown) Review of Systems (units (unknown) date) unknown) (unknown) (no (unknown) (unknown) Signed (units (unkno wn) date) By:<Electronically unknown) signed by Thomas Bradley MD> (unknown) (no (unknown) (unknown) Skin (units (unkno wn) date) unknown) (unknown) (no (unknown) (unknown) Smoking Status (units (unknown) date) Never smoker unknown) (unknown) (no (unknown) (unknown) Social History: (units (unknown) date) unknown) (unknown) (no (unknown) (unknown) Substance Use (units ( unknown) date) Type does not use unknown) (unknown) (no (unknown) (unknown) Temperature 96.6 (units (unknown) date) F L unknown) (unknown) (no (unknown) (unknown) Time Patient (units (u nknown) date) Seen: 07:57 unknown) (unknown) (no (unknown) (unknown) Time Spent With (units (unknown) date) Patient unknown) (unknown) (no (unknown) (unknown) Tobacco + (units (unkn own) date) Substance use: unknown) (unknown) (no (unknown) (unknown) Vital Signs (units (un known) date) unknown) (unknown) (no (unknown) (unknown) alcohol intake (units (unknown) date) never unknown) (unknown) (no (unknown) (unknown) apixaban 5 mg (units ( unknown) date) tablet (Eliquis) 5 unknown) mg PO BID 07/02/20 01/27/22 History (unknown) (no (unknown) (unknown) aspirin 81 mg (units ( unknown) date) tablet,delayed 81 unknown) mg PO DAILY 07/02/20 01/27/22 History (unknown) (no (unknown) (unknown) atorvastatin 80 (units (unknown) date) mg tablet 80 mg PO unknown) DAILY 07/02/20 01/27/22 History (unknown) (no (unknown) (unknown) diltiazem HCl 180 (units (unknown) date) mg capsule,24 180 unknown) mg PO DAILY 07/02/20 01/27/22 History (unknown) (no (unknown) (unknown) dulaglutide 1.5 (units (unknown) date) mg/0.5 mL 1.5 mg unknown) SUBCUT QWEEK 07/02/20 01/27/22 History (unknown) (no (unknown) (unknown) future surgery or (units (unknown) date) treatment unknown) (unknown) (no (unknown) (unknown) household members (units (unknown) date) spouse unknown) (unknown) (no (unknown) (unknown) hr,extended (units (un known) date) release unknown) (unknown) (no (unknown) (unknown) isosorbide (units (unk nown) date) mononitrate 30 mg unknown) 30 mg PO DAILY 07/02/20 01/27/22 History (unknown) (no (unknown) (unknown) loratadine 10 mg (units (unknown) date) capsule 10 mg PO unknown) DAILY 07/02/20 01/27/22 History (unknown) (no (unknown) (unknown) losartan 50 mg (units (unknown) date) tablet 50 mg PO unknown) DAILY 07/02/20 01/27/22 History (unknown) (no (unknown) (unknown) metformin 1,000 (units (unknown) date) mg tablet 1,000 mg unknown) PO DAILY 07/02/20 01/27/22 History (unknown) (no (unknown) (unknown) mg) (units (unkno wn) date) tablet,extended unknown) release (unknown) (no (unknown) (unknown) multivitamin 1 (units (unknown) date) tab PO DAILY unknown) 07/02/20 01/27/22 History (unknown) (no (unknown) (unknown) nitroglycerin 0.4 (units (unknown) date) mg sublingual 0.4 unknown) mg sublingual ONCE 07/02/20 01/27/22 History (unknown) (no (unknown) (unknown) otherwise (units (unkn own) date) documented unknown) (unknown) (no (unknown) (unknown) pantoprazole 40 (units (unknown) date) mg tablet,delayed unknown) 40 mg PO DAILY 07/02/20 01/27/22 History (unknown) (no (unknown) (unknown) potassium citrate (units (unknown) date) 15 mEq (1,620 15 unknown) meq PO BID 07/02/20 01/27/22 History (unknown) (no (unknown) (unknown) ranolazine 500 mg (units (unknown) date) tablet,extended unknown) 500 mg PO BID 07/02/20 01/27/22 History (unknown) (no (unknown) (unknown) release (Adult (units (unknown) date) Aspirin Regimen) unknown) (unknown) (no (unknown) (unknown) release (units (unkno wn) date) unknown) (unknown) (no (unknown) (unknown) release,12 hr (units ( unknown) date) unknown) (unknown) (no (unknown) (unknown) screening. (units (unk nown) date) unknown) (unknown) (no (unknown) (unknown) subcutaneous pen (units (unknown) date) injector unknown) (unknown) (no (unknown) (unknown) tablet (units (unkno wn) date) unknown) (unknown) (no (unknown) (unknown) tablet,extended (units (unknown) date) release 24 hr unknown) (unknown) (no (unknown) (unknown) tamsulosin 0.4 mg (units (unknown) date) capsule 0.4 mg PO unknown) BEDTIME 07/02/20 01/27/22 History (unknown) (no (unknown) (unknown) today; this time (units (unknown) date) is exclusive of unknown) procedural time. (unknown) (no (unknown) (unknown) topiramate 50 mg (units (unknown) date) tablet 50 mg PO unknown) BID 07/02/20 01/27/22 History Result panel 5 (unknown) (no (unknown) (unknown) (no value) (units (unk nown) date) unknown) (unknown) (no (unknown) (unknown) 1. Repeat (units (unkn own) date) colonoscopy 10 unknown) years. 2. Follow-up primary care. 3. Okay to resume (unknown) (no (unknown) (unknown) 1. Sigmoid (units (unk nown) date) diverticulosis unknown) (unknown) (no (unknown) (unknown) 01/27/22 0822 (units ( unknown) date) unknown) (unknown) (no (unknown) (unknown) [address] (units (unkno wn) date) unknown) (unknown) (no (unknown) (unknown) 2. Grade 2 (units (unk nown) date) hemorrhoids unknown) (unknown) (no (unknown) (unknown) Adult (units (unkno wn) date) colonoscope unknown) (unknown) (no (unknown) (unknown) After the risks (units (unknown) date) and benefits were unknown) explained, written and verbal informed consent (unknown) (no (unknown) (unknown) Age/Sex: 61 / M (units (unknown) date) unknown) (unknown) (no (unknown) (unknown) Anemia colon (units (u nknown) date) cancer screening unknown) (unknown) (no (unknown) (unknown) Bowel prep (units (unk nown) date) adequate unknown) (unknown) (no (unknown) (unknown) Colonoscopy Note (units (unknown) date) unknown) (unknown) (no (unknown) (unknown) Colonoscopy (units (un known) date) unknown) (unknown) (no (unknown) (unknown) Complications: (units (unknown) date) none unknown) (unknown) (no (unknown) (unknown) : 1960 (units (unknown) date) Acct:[id number] unknown) (unknown) (no (unknown) (unknown) Date of Service: (units (unknown) date) 01/27/22 unknown) (unknown) (no (unknown) (unknown) Date of (units (unkno wn) date) procedure: unknown) 01/27/22 (unknown) (no (unknown) (unknown) Disposition: (units (u nknown) date) PACU unknown) (unknown) (no (unknown) (unknown) Eliquis today. (units (unknown) date) unknown) (unknown) (no (unknown) (unknown) Endoscopic (units (unk nown) date) diagnosis unknown) (unknown) (no (unknown) (unknown) Impression: (units (un known) date) unknown) (unknown) (no (unknown) (unknown) Indications: (units (u nknown) date) unknown) (unknown) (no (unknown) (unknown) [facility] (units (unknown) date) [address] unknown) [place] [address] (unknown) (no (unknown) (unknown) Operative (units (unkn own) date) Date/Time/Diagnos unknown) es (unknown) (no (unknown) (unknown) Patient: (units (unkno wn) date) Krystian Sosa unknown) MR#: [id number] (unknown) (no (unknown) (unknown) Plan for (units (unkno wn) date) aftercare: unknown) (unknown) (no (unknown) (unknown) Post-op (units (unkno wn) date) diagnosis: same unknown) (unknown) (no (unknown) (unknown) Post-procedure (units (unknown) date) unknown) (unknown) (no (unknown) (unknown) Pre-op (units (unkno wn) date) diagnosis: unknown) Anemia, colon cancer screening (unknown) (no (unknown) (unknown) Procedure + (units (un known) date) Clinicians unknown) (unknown) (no (unknown) (unknown) Procedure Notes (units (unknown) date) unknown) (unknown) (no (unknown) (unknown) Procedure in (units (u nknown) date) detail: unknown) (unknown) (no (unknown) (unknown) Provider: (units (unkn own) date) Thomas Bradley MD unknown) (unknown) (no (unknown) (unknown) SCOAP/Timeout: (units (unknown) date) Done unknown) (unknown) (no (unknown) (unknown) Same procedure (units (unknown) date) as scheduled: Yes unknown) (unknown) (no (unknown) (unknown) Scope withdrawal (units (unknown) date) time: 8 minutes unknown) (unknown) (no (unknown) (unknown) Sedation (units (unkno wn) date) minutes: 13 unknown) (unknown) (no (unknown) (unknown) Signed (units (unkno wn) date) By:<Electronicall unknown) y signed by Thomas Bradley MD> (unknown) (no (unknown) (unknown) Specimen(s): (units (u nknown) date) none sent unknown) (unknown) (no (unknown) (unknown) Study performed: (units (unknown) date) unknown) (unknown) (no (unknown) (unknown) Surgeon: Thomas (units (unknown) date) Kirk unknown) (unknown) (no (unknown) (unknown) There were some (units (unknown) date) scattered unknown) diverticula in the sigmoid. Grade 2 hemorrhoids were (unknown) (no (unknown) (unknown) Time of (units (unkno wn) date) procedure: 08:19 unknown) (unknown) (no (unknown) (unknown) direct (units (unkno wn) date) visualization to unknown) the cecum as identified by the appendiceal orifice and (unknown) (no (unknown) (unknown) for any defects (units (unknown) date) or lesions. unknown) Comprehensive imaging was accomplished throughout (unknown) (no (unknown) (unknown) ileocecal valve. (units (unknown) date) The scope was unknown) slowly withdrawn to carefully examine the mucosa (unknown) (no (unknown) (unknown) noted on direct (units (unknown) date) views. No unknown) significant mucosal pathology was appreciated through (unknown) (no (unknown) (unknown) out. (units (unkno wn) date) unknown) (unknown) (no (unknown) (unknown) sedation (units (unkno wn) date) details. The unknown) scope was introduced into the patient and advanced under (unknown) (no (unknown) (unknown) the left lateral (units (unknown) date) decubitus unknown) position. Please see nurse muck hauler notes for (unknown) (no (unknown) (unknown) the rectum (units (unk nown) date) including the unknown) dentate line. The colon was decompressed, the scope (unknown) (no (unknown) (unknown) was obtained. (units ( unknown) date) The patient was unknown) brought into the procedure room and placed into (unknown) (no (unknown) (unknown) was then removed (units (unknown) date) from the patient unknown) who tolerated the procedure well. Social History No information. Vital Signs No information.
[2022-04-19] MEDS ORDERED: AMOX/CLAV 875 MG/125 MG TABLET PO STA (17:38)
--- NOTE | 2022-04-19 17:41 | ED Physician Documentation ---
History of Present Illness - Stated complaint Stated Complaint: RT NECK SWELLING - Chief complaint Chief Complaint: General - History obtained from History obtained from: Patient (He developed progressive swelling and pain in the area of the right jaw over the last 36 hours or so. There is no fever.) Review of Systems Constitutional: denies: Fever, Chills Throat: reports: Reviewed and negative PD PAST MEDICAL HISTORY - Past Medical History Cardiovascular: Hypertension, High cholesterol, Coronary artery disease, [place], Atrial fibrillation Endocrine/Autoimmune: Type 2 diabetes GI: GERD : Kidney stones - Past Surgical History Past Surgical History: Yes Cardiovascular: CABG, Coronary stent - Present Medications Home Medications: Ambulatory Orders Medication Instructions Recorded Confirmed Apixaban [Eliquis] 5 mg PO BID 06/26/20 04/17/21 Atorvastatin Calcium [Lipitor] 80 mg PO QPM 06/26/20 04/17/21 Isosorbide Mononitrate [Isosorbide 30 mg PO DAILY 06/26/20 04/17/21 Mononitrate ER] Loratadine [Allergy Relief] 10 mg PO BID 06/26/20 04/17/21 Losartan [Cozaar] 50 mg PO DAILY 06/26/20 04/17/21 Multivitamin 1 tab PO DAILY 06/26/20 04/16/21 Nitroglycerin [Nitrostat] 0.4 mg PO Q5M PRN 06/26/20 04/17/21 Pantoprazole [Protonix] 40 mg PO QDAC 06/26/20 04/17/21 Potassium Citrate 1,620 mg PO DAILY 06/26/20 04/16/21 Tamsulosin HCl [Flomax] 0.4 mg PO DAILY 06/26/20 04/17/21 dilTIAZem HCL [Diltiazem 24Hr ER 180 mg PO DAILY 06/26/20 04/17/21 (Xr)] Aspirin EC [Ecotrin] 81 mg PO DAILY 04/17/21 04/17/21 DULoxetine [Cymbalta] 90 mg PO DAILY 04/17/21 04/17/21 Dulaglutide [Trulicity] 1.5 mg SUBQ Q7D 04/17/21 04/17/21 Metformin HCl [Metformin ER 1,000 mg PO BID 04/17/21 04/17/21 Gastric] Ranolazine [Ranolazine ER] 1,000 mg PO BID 04/17/21 04/17/21 Topiramate 50 mg PO BID 04/17/21 04/17/21 Amox/Clav 875/125 [Augmentin] 1 each PO Q12H #14 tablet 04/19/22 - Allergies Allergies/Adverse Reactions: Allergies Allergy/AdvReac Type Severity Reaction Status Date / Time carvedilol Allergy Unknown Verified 04/19/22 16:34 - Social History Does the pt smoke?: No Smoking Status: Never smoker Does the pt drink ETOH?: No Does the pt have substance abuse?: No - Immunizations Immunizations are current?: Yes - POLST Patient has POLST: No POLST Status: Full Code PD ED PE NORMAL - Vitals Vital signs reviewed: Yes - General General: Alert and oriented X 3, No acute distress - HEENT HEENT: Other (The sublingual salivary gland is swollen and tender. On the inside of the mouth there is pointing of the sublingual gland orifice.) - Neuro Neuro: Alert and oriented X 3, Normal speech Results - Vitals Vitals: Vital Signs - 24 hr 04/19/22 16:34 Temperature 36.5 C Heart Rate 88 Respiratory 16 Rate Blood Pressure 156/85 H O2 Saturation 98 Oxygen O2 Source Room air PD Medical Decision Making - ED course ED course: He looks like he had a obstructive sublingual gland. I was able to milk the stone out with cotton swabs and I placed a 20-gauge IV catheter without the needle into the orifice and pus started flowing freely. He is started on Augmentin. He declined prescription pain medication. Departure - Departure Disposition: 01 Home, Self Care Clinical Impression: Salivary duct stone Condition: Good Record reviewed to determine appropriate education?: Yes Instructions: ED Sublingual Gland Obstruction Prescriptions: Amox/Clav 875/125 [Augmentin] 1 each PO Q12H #14 tablet Comments: You were seen today for an obstructive salivary duct stone on the right. I was able to clear this manually and then opened up the duct with an IV catheter. We are starting you on some antibiotics and you should be much better. Return if worse. If symptoms are persistent reasonable to follow-up with an nuclear weapons mechanical specialist, the closest is in [place], the phone number is [phone].
[2022-04-19 17:49] VITALS: BP 148/94
== END 2022-04-19 17:49 | disposition home or self-care (01) ==
LOC: ED 16:20
DX: K11.5 Sialolithiasis (principal)
CPT/HCPCS: 99282; 99283; A9270

== ENCOUNTER 2022-04-20 07:37 | Emergency (ER) | payer OTHER ==
[2022-04-20 07:47] VITALS: BP 109/69
--- OUTSIDE RECORDS SUMMARY | 2022-04-20 08:08 | EXTERNAL MEDICAL SUMMARY RPT | Continuity of Care Document ---
:1960 Author Organization [facility] Address [address] [place] [address] Phone Allergies and Intolerances date description facility type (no date) No Known Drug Allergies [facility] (unkn own) Encounters No information. Functional Status No information. Immunizations No information. Medications No information. Problems date description facility 2022-01-25 09:45 Encounter for preprocedural [facility] examination 2022-01-25 09:45 Contact with and (suspected) exposure [facility] COVID-19 2022-01-25 23:44 Encounter for preprocedural [facility] examination 2022-01-25 23:44 [facility] 06:33 Encounter for screening for malignant [facility] 2022-01-27 06:53 Encounter for screening for malignant [facility] 2022-01-27 08:36 Encounter for screening for malignant [facility] 2022-01-27 08:51 Encounter for screening for malignant [facility] 2022-01-27 08:53 Encounter for screening for malignant [facility] Procedures No information. Results/Labs test date author [...] own) date) unknown) (unknown) (no (unknown) (unknown) [place], [place] (units ( unknown) date) [id number] unknown) (unknown) (no (unknown) (unknown) Attending Dr: (units ( unknown) date) Yoan York MD unknown) (unknown) (no (unknown) (unknown) : 1960 (units (unknown) date) Acct:[id number] unknown) (unknown) (no (unknown) (unknown) Dept at [...] (unknown) (unknown) Patient: (units (unkno wn) date) Jagdeep Sosa unknown) MR#: [id number] (unknown) (no (unknown) [...] unknown) effort is made to edit content, inventory worker errors Result panel 2 (unknown) (no date) [...] wn) date) unknown) (unknown) (no (unknown) (unknown) [id number] (units (unkno wn) date) unknown) (unknown) (no (unknown) (unknown) Age/Sex: 61 / M (units (unknown) date) Date of Service: unknown) (unknown) (no (unknown) (unknown) Allergies (units (unkn own) date) unknown) (unknown) (no (unknown) (unknown) [place], [place] (units ( unknown) date) [id number] unknown) (unknown) (no (unknown) (unknown) Attending Dr: (units ( unknown) date) Yoan York MD unknown) (unknown) (no (unknown) (unknown) : 1960 (units (unknown) date) Acct:[id number] unknown) (unknown) (no (unknown) (unknown) Dept at [...] (unknown) (unknown) Patient: (units (unkno wn) date) Jagdeep Sosa unknown) MR#: [id number] (unknown) (no (unknown) [...] unknown) effort is made to edit content, inventory worker errors Result panel 4 (unknown) (no (unknown) [...] wn) date) unknown) (unknown) (no (unknown) (unknown) [id number] (units (unkno wn) date) unknown) (unknown) (no [...] (unknown) (unknown) : 1960 (units (unknown) date) Acct:[id number] unknown) (unknown) (no (unknown) (unknown) Date Patient [...] unknown) date) unknown) (unknown) (no (unknown) (unknown) [facility] (units (unknown) date) [address] unknown) [place] [address] (unknown) (no (unknown) (unknown) Medical History (units [...] (unknown) (unknown) Patient: (units (unkno wn) date) Jagdeep Sosa MR#: unknown) [id number] (unknown) (no (unknown) [...] unknown) date) unknown) (unknown) (no (unknown) (unknown) [id number] (units (unkno wn) date) unknown) (unknown) (no [...] (unknown) (unknown) : 1960 (units (unknown) date) Acct:[id number] unknown) (unknown) (no (unknown) (unknown) Date of [...] nknown) date) unknown) (unknown) (no (unknown) (unknown) [facility] (units (unknown) date) [address] unknown) [place] [address] (unknown) (no (unknown) (unknown) Operative (units (unkn own) date) Date/Time/Diagnos unknown) es (unknown) (no (unknown) (unknown) Patient: (units (unkno wn) date) Jagdeep Sosa unknown) MR#: [id number] (unknown) (no (unknown) [...] date) decubitus unknown) position. Please see nurse qualitative executive researcher notes for (unknown) (no (unknown) (unknown) the [...]
[2022-04-20] MEDS ORDERED: AMOX/CLAV 875 MG/125 MG TABLET PO STA (08:11)
[2022-04-20] MEDS ORDERED: HYDROcod/ACETAM 5/325 MG TABLET PO STA (08:11)
--- NOTE | 2022-04-20 08:12 | ED Physician Documentation ---
PD HPI HEENT - Stated complaint Stated Complaint: SORE THROAT - Chief complaint Chief Complaint: Heent - History obtained from History obtained from: Patient - Additional information Additional information: Patient is a 61-year-old presenting for evaluation of swelling and pain To the right face that has been present for the past 2 to 3 days. He was seen yesterday in the emergency department and a salivary duct stone was milked from the gland and pus was expressed. He was started on Augmentin And given 1 dose yesterday but has not picked up his prescription. He declined need for pain medication Yesterday. He last used Tylenol yesterday.He reports waking up this morning feeling Continued discomfort. 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 He denies fever. He is able to swallow. Review of Systems Constitutional: denies: Fever Cardiac: denies: Chest pain / pressure Respiratory: denies: Dyspnea PD PAST MEDICAL HISTORY - Past Medical History Past Medical History: Yes Cardiovascular: Hypertension, High cholesterol, Coronary artery disease, [place], Atrial fibrillation Respiratory: None Neuro: CVA Endocrine/Autoimmune: Type 2 diabetes GI: GERD : Kidney stones HEENT: None Psych: Depression, Anxiety, Post traumatic stress disorder Musculoskeletal: None Derm: None - Past Surgical History Past Surgical History: Yes Cardiovascular: CABG, Coronary stent - Present Medications Home Medications: Ambulatory Orders Medication Instructions Recorded Confirmed Apixaban [Eliquis] 5 mg PO BID 06/26/20 04/20/22 Atorvastatin Calcium [Lipitor] 80 mg PO QPM 06/26/20 04/20/22 Isosorbide Mononitrate [Isosorbide 30 mg PO DAILY 06/26/20 04/20/22 Mononitrate ER] Loratadine [Allergy Relief] 10 mg PO BID 06/26/20 04/20/22 Losartan [Cozaar] 50 mg PO DAILY 06/26/20 04/20/22 Multivitamin 1 tab PO DAILY 06/26/20 04/20/22 Nitroglycerin [Nitrostat] 0.4 mg PO Q5M PRN 06/26/20 04/20/22 Pantoprazole [Protonix] 40 mg PO QDAC 06/26/20 04/20/22 Potassium Citrate 1,620 mg PO DAILY 06/26/20 04/20/22 Tamsulosin HCl [Flomax] 0.4 mg PO DAILY 06/26/20 04/20/22 dilTIAZem HCL [Diltiazem 24Hr ER 180 mg PO DAILY 06/26/20 04/20/22 (Xr)] Aspirin EC [Ecotrin] 81 mg PO DAILY 04/17/21 04/20/22 DULoxetine [Cymbalta] 90 mg PO DAILY 04/17/21 04/20/22 Dulaglutide [Trulicity] 1.5 mg SUBQ Q7D 04/17/21 04/20/22 Metformin HCl [Metformin ER 1,000 mg PO BID 04/17/21 04/20/22 Gastric] Ranolazine [Ranolazine ER] 1,000 mg PO BID 04/17/21 04/20/22 Topiramate 50 mg PO BID 04/17/21 04/20/22 Amox/Clav 875/125 [Augmentin] 1 each PO Q12H #14 tablet 04/19/22 04/20/22 HYDROcod/ACETAM 5/325 [[place] 5/325] 1 tablet PO Q6H PRN #12 tablet 04/20/22 - Allergies Allergies/Adverse Reactions: Allergies Allergy/AdvReac Type Severity Reaction Status Date / Time carvedilol Allergy Unknown Verified 04/20/22 07:43 - Social History Does the pt smoke?: No Smoking Status: Never smoker Does the pt drink ETOH?: No Does the pt have substance abuse?: No - Immunizations Immunizations are current?: Yes - POLST Patient has POLST: No POLST Status: Full Code PD ED PE NORMAL - General General: Alert and oriented X 3, No acute distress, Well developed/nourished - HEENT HEENT: Atraumatic, Moist mucous membranes, Other (Swelling and tenderness to right Sublingual gland; No elevation of tongue, normal speech, tolerating secretions) - Neck Neck: Supple, no meningeal sign - Cardiac Cardiac: RRR - Respiratory Respiratory: No respiratory distress - Neuro Neuro: Normal speech Results - Vitals Vitals: Vital Signs - 24 hr 04/20/22 07:44 Temperature 36.5 C Heart Rate 88 Respiratory 18 Rate Blood Pressure 109/69 O2 Saturation 98 Oxygen O2 Source Room air PD Medical Decision Making - ED course ED course: Patient seen for obstructive sublingual gland Yesterday and started on Augmentin.Per the patient and his the swelling has not increased since yesterday And he continues to be afebrile. He has noted continued discomfort which has not improved with the use of Tylenol. He declined pain medication yesterday but is agreeable to trial of pain medication today along with Continued antibiotic use. Patient and counseled on concerning symptoms to return for. Departure - Departure Disposition: 01 Home, Self Care Clinical Impression: Salivary duct obstruction Condition: Stable Instructions: ED Sublingual Gland Obstruction Prescriptions: HYDROcod/ACETAM 5/325 [[place] 5/325] 1 tablet PO Q6H PRN #12 tablet PRN Reason: Pain Comments: Please continue with the antibiotic as well as warm compresses, Gentle massage to your salivary gland, Use of sour candies to continue to encourage your gland to drain. I have also sent a small amount of narcotic pain medication to [facility] in [place] to use as needed. Please contact your primary care doctor for close follow-up Or to place an ENT referral For follow-up. If you have worsening symptoms Such as swelling or fever then please return to the emergency department. I am prescribing a short course of narcotic pain medication for you. These are potentially dangerous and addictive medications that should be used carefully. These medications may constipate you. Take an nudz-zgo-wutggmg stool softener (docusate) twice daily with plenty of water while taking these medications. If you go 24 hours without a bowel movement, take ssnj-eow-rbjgamd miralax, per package instructions. Do not drink or drive while taking these medications. If you received narcotic or sedating medications while in the emergency department, do not drive for 24 hours. Store this medication in a safe, secure place and out of reach of children. It is a violation of federal law to give or sell this medication to another person or to use in a manner other than prescribed. The ED will not refill narcotic prescriptions, including prescriptions lost or stolen. To dispose of unwanted medications: 1. [facility] [address] in [place] has a medication drop box. They accept prescription medications (in pill form) Tuesday through Tuesday 9:00 a.m. to 5:00 p.m. 2. The [facility] [employer] accepts prescription medications (in pill form only) for disposal year round. Call for more information. 3. Contact the [facility] for the next [facility] sponsored prescription drug collection event. , [phone], or [phone]; Note that many narcotic pain relievers also contain Tylenol/acetaminophen. Please ensure that your total dose of acetaminophen from all sources does not exceed 3 g (3000 mg) per day. Forms: Activity restrictions
== END 2022-04-20 08:27 | disposition home or self-care (01) ==
LOC: ED 07:37
DX: K11.5 Sialolithiasis (principal)
CPT/HCPCS: 99282; 99283; A9270

== ENCOUNTER 2022-04-30 10:01 | Outpatient (CLI) | payer OTHER ==
[2022-04-30 10:59] VITALS: BP 132/80
--- NOTE | 2022-04-30 10:59 | SLEEP CARE CONSULTATION ---
Information from patient questionnaire entered by Doroteo Kinney. I have reviewed and concur with the information entered by Doroteo Kinney. This document represents the service I personally performed and the decisions made by me, Thelma Sanon ARNP. History of Present Illness Service Date and Time: 04/30/2022 1001 Previous diagnosis: Mild, Obstructive Sleep Apnea-Hypopnea Syndrome AHI: 13.7 (in 2019 (34.7 in 2012)) Reason for follow up: annual (LAST SEEN 02/2020) Equipment type: CPAP Equipment obtained from: Other ([facility]) Mask style: Nasal pillows (Dreamwear) Backup mask available: No (needs supplies) Prior sleep studies: Yes Year and Where: 2012 [facility] HPI additional information: KRYSTIAN ADEN was diagnosed to have mild, AHI 13.7, obstructive sleep apnea- hypopnea syndrome and returned today with partner for CPAP therapy annual follow-up. Sleep Study - Results Prior sleep studies: Yes Year and Where: 2012 [facility] CPAP Compliance Data - Data Reviewed with Patient Average duration of nightly device use: 7 hours 39 minutes Compliance rate %: 90 (05/14/2020-11/09/2020) Current pressure setting (cmH2O): 6-9 Average residual AHI: 4 Central apnea: 0.3 Obstructive apnea: 0.1 Hypopnea: 3.6 Compliance data discussion: He just received his New Dreamstation 2. Subjective Missed days of use due to: reports: other (recall on CPAP, stopped using) Current pressure setting perceived as: comfortable On therapy, patient: reports: sleeping better, being more awake and alert during the day. denies: drowsiness while driving Initial [place] Sleepiness Scale score: 19 Current [place] Sleepiness Scale score: 16 (04/30/22) Allergies and Home Medications Drug allergies reviewed: Yes (carvedilol) Home medication list reviewed: Yes (no changes) Review of Systems Review of systems same as previous: No (mild stroke 04/2021) Physical Exam Vital signs obtained and entered by: DOROTEO Padilla MA Blood Pressure: 132/80 (LEFT ARM) Cuff size: regular Heart Rate: 68 O2 Saturation: 97 Height: 5 ft 9 in Weight: 198 lb 6.4 oz Body Mass Index: 29.2 BMI Classification: Overweight Impression and Plan 1. Obstructive Sleep Apnea-Hypopnea Syndrome, mild. On CPAP therapy, the patient has better sleep quality and is more rested overall. Patient has not been using his CPAP because it was a Dreamstation on the recall. He was last seen in 02/2020. He has not used the CPAP since 10/2020. He just received a new Dreamstation 2 about a month ago and comes in to see if he needs to retest or start using his new CPAP. He also had a mild stroke in early 2021, his neurologist told him it was probably due to him not using his CPAP. I will have him restart CPAP therapy on his new Dreamstation 2 and follow up in office in 1- 2 months to check in on his use. He voiced understanding and agreement. Patient's apnea severity and rationale for treatment to reduce apnea, improve sleep quality and reduce cardiovascular and cerebrovascular events was reviewed. I also reviewed the benefit of consistent device use of CPAP for hypertension, cardiac disease, cerebrovascular disease, diabetes, depression and anxiety. 2. Overweight, unspecified. Currently patients BMI is 29.2. Obesity increases the risk of apnea, CPAP pressure requirements and overall health risks especially cardiovascular and diabetes. Thus patient is advised to lose weight. * Continue auto CPAP pressure at 6-9 cmH2O * Update supplies * Notify me if snoring with mask or feeling that the pressure is too much or too little * Attempt to lose weight * Call this office if any problems using CPAP * Return for follow up in 1-2 months, or sooner if concerns arise Counseling Topics: Spare mask, Weight loss health impact Visit Type: In Office Time Spent with Patient (minutes): 23 Provider Statement: I spent 100% of the Face to Face Visit with the patient with greater than 50% spent counseling the patient and coordination of care.
== END 2022-04-30 10:02 | disposition home or self-care (01) ==
LOC: SC 10:01
PROVIDERS: ATTEND Nurse Practitioner Family
DX: G47.33 Obstructive sleep apnea (adult) (pediatric) (principal); E66.3 Overweight; Z68.29 Body mass index [BMI] 29.0-29.9, adult
CPT/HCPCS: 99212; 99213

== ENCOUNTER 2022-06-25 08:54 | Outpatient (CLI) | payer OTHER ==
--- NOTE | 2022-06-25 09:34 | SLEEP CARE CONSULTATION ---
Information from patient questionnaire entered by Doroteo Kinney. I have reviewed and concur with the information entered by Doroteo Kinney. This document represents the service I personally performed and the decisions made by me, Thelma Sanon ARNP. History of Present Illness Service Date and Time: 06/25/2022 0854 Previous diagnosis: Severe, Obstructive Sleep Apnea-Hypopnea Syndrome AHI: 34.7 Reason for follow up: other (2 MONTH F/U) Equipment type: CPAP (Dreamstation 2) Equipment obtained from: Other ([facility]; getting supplies as needed) Mask style: Nasal (Dreamwear) Mask brand: Respironics Backup mask available: No (will keep old mask when replaced) Last cushion change: 3 weeks Prior [facility]: Yes [email or web address] additional information: KRYSTIAN ADEN was diagnosed to have severe, AHI 34.7, obstructive sleep apnea- hypopnea syndrome and returned today for CPAP therapy two month follow-up. Sleep Study - Results Prior sleep studies: Yes Year and Where: [facility] CP[facility] Compliance Data - Data Reviewed with Patient Average duration of nightly device use: 6 hours 41 minutes Compliance rate %: 58.3 (34/60 days used) Current pressure setting (cmH2O): 6-9 Average residual AHI: 7.1 Central apnea: 0.7 Obstructive apnea: 0.5 Hypopnea: 5.9 Average large leak: 0 Subjective Missed days of use due to: reports: illness, travel Patient concerns: reports: condensation in mask/hose (alot of moisture). denies: aerophagia, mask discomfort, air blowing in eyes, mask leak noise, nasal congestion, dry mouth, nose, throat, epistaxis Observed to snore while using device: No Current pressure setting perceived as: comfortable On therapy, patient: reports: sleeping better, awakening more refreshed, being more awake and alert during the day, more rested overall. denies: drowsiness while driving Initial Call Sleepiness Scale score: 19 Current Call Sleepiness Scale score: 14 (06/25/22) Allergies and Home Medications Known drug allergies: Yes (carvedilol) Drug allergies reviewed: Yes Home medication list reviewed: Yes (no changes) Review of Systems Review of systems same as previous: Yes (no changes) Physical Exam Vital signs obtained and entered by: DOROTEO Padilla MA Blood Pressure: 142/82 (LEFT ARM) Cuff size: regular Heart Rate: 81 O2 Saturation: 97 Height: 5 ft 8 in Weight: 201 lb 6.4 oz Body Mass Index: 30.6 BMI Classification: Obese Impression and Plan 1. Obstructive Sleep Apnea-Hypopnea Syndrome, severe, with fair treatment compliance and fair apnea control with elevated a residual AHI. On CPAP therapy, the patient has better sleep quality and is more rested overall. He went to [place] and had a lot of allergies with sneezing and cough that prevented him from being able to wear his CPAP. This affected his compliance. He has resume night use since returning home from [place] with no residual respiratory symptoms. Patient has significant improvement of their sleep apnea although slightly ineffective at current settings and he is satisfied with current CPAP therapy. Patient has been getting lots of condensation in the tubing. He has not tried to adjust the humidity. I checked his settings and his humidity is at 4 with heated hose at 5. I will reduce the humidity to 3 and leave the heated hose at 5. He will let me know if this change is not enough to reduce the condensation. The patients pressure will be changed to autoCPAP 7-10 cmH20 for elevation of residual AHI. Patient advised to contact me if pressure change is uncomfortable so that it can be adjusted. Goals for apnea control discussed. Patient's apnea severity and rationale for treatment to reduce apnea, improve sleep quality and reduce cardiovascular and cerebrovascular events was reviewed. I also reviewed the benefit of consistent device use of CPAP for hypertension, cardiac disease, cerebrovascular disease, diabetes, depression and anxiety. 2. Obesity, unspecified. Currently patients BMI is 30.6. Obesity increases the risk of apnea, CPAP pressure requirements and overall health risks especially cardiovascular and diabetes. Thus patient is advised to lose weight. * Change auto CPAP pressure to 7-10 cmH2O * Notify me if snoring with mask or feeling that the pressure is too much or too little * Attempt to lose weight * Call this office if any problems using CPAP * Return for follow up in 3 months, or sooner if concerns arise Counseling Topics: Spare mask, Weight loss health impact Visit Type: In Office Time Spent with Patient (minutes): 23 Provider Statement: I spent 100% of the Face to Face Visit with the patient with greater than 50% spent counseling the patient and coordination of care.
[2022-06-25 09:35] VITALS: BP 142/82
== END 2022-06-25 08:55 | disposition home or self-care (01) ==
LOC: SC 08:54
PROVIDERS: ATTEND Nurse Practitioner Family
DX: G47.33 Obstructive sleep apnea (adult) (pediatric) (principal); E66.9 Obesity, unspecified; Z68.30 Body mass index [BMI] 30.0-30.9, adult
CPT/HCPCS: 99212; 99213

== ENCOUNTER 2022-08-18 06:43 | Emergency (ER) | payer OTHER ==
--- NOTE | 2022-08-18 07:47 | ED Physician Documentation ---
PD HPI BACK PAIN - Stated complaint Stated Complaint: LT SIDE PX - Chief complaint Chief Complaint: General - History obtained from History obtained from: Patient - History of Present Illness Timing - onset: How many days ago (5) Timing - duration: Days (5) Timing - details: Gradual onset, Still present Location: Lower, Left Quality: Pain, Spasm, Sharp Associated symptoms: Numbness. No: Fever, Weakness, Incontinent of urine, Unable to urinate, Hematuria, Incontinent of stool Improves with: Rest, Position Worsened by: Movement, Palpation Contributing factors: Other (does not know of loading injury) Similar symptoms before: Has not had sx before Recently seen: Not recently seen - Additional information Additional information: 62-year-old male with a history of factor V Leiden deficiency and early coronary disease has developed pain in his back on the left side radiating down the lateral aspect of his thigh into his groin. He had the onset of this pain while sitting and has modifying factors of movement. He does not know of a loading injury prior to the onset of his symptoms. He has been in to see the chiropractor without much improvement in his pain. He denies any chest pain abdominal pain dyspnea or new symptoms. He does have a history of diabetes uses [facility] and states that he is drinking a lot of water. Review of Systems Constitutional: denies: Fever Eyes: denies: Decreased vision Ears: denies: Ear pain Nose: denies: Rhinorrhea / runny nose, Congestion Throat: denies: Sore throat Cardiac: denies: Chest pain / pressure, Palpitations Respiratory: denies: Dyspnea, Cough GI: reports: Diarrhea (Loose stool only). denies: Abdominal Pain, Nausea, Vomiting : denies: Dysuria, Frequency Skin: denies: Rash Musculoskeletal: reports: Back pain, Extremity pain. denies: Neck pain Neurologic: reports: Numbness. denies: Generalized weakness, Focal weakness, Difficulty speaking, Headache, Head injury, LOC PD PAST MEDICAL HISTORY - Past Medical History Past Medical History: Yes Cardiovascular: Hypertension, High cholesterol, Coronary artery disease, [place], Atrial fibrillation Respiratory: None Neuro: CVA Endocrine/Autoimmune: Type 2 diabetes GI: GERD : Kidney stones HEENT: None Psych: Depression, Anxiety, Post traumatic stress disorder Musculoskeletal: None Derm: None - Past Surgical History Past Surgical History: Yes Cardiovascular: CABG, Coronary stent - Present Medications Home Medications: Ambulatory Orders Medication Instructions Recorded Confirmed Apixaban [Eliquis] 5 mg PO BID 06/26/20 08/18/22 Atorvastatin Calcium [Lipitor] 80 mg PO QPM 06/26/20 08/18/22 Isosorbide Mononitrate [Isosorbide 30 mg PO DAILY 06/26/20 08/18/22 Mononitrate ER] Loratadine [Allergy Relief] 10 mg PO BID 06/26/20 08/18/22 Losartan [Cozaar] 50 mg PO DAILY 06/26/20 08/18/22 Multivitamin 1 tab PO DAILY 06/26/20 08/18/22 Nitroglycerin [Nitrostat] 0.4 mg PO Q5M PRN 06/26/20 08/18/22 Pantoprazole [Protonix] 40 mg PO QDAC 06/26/20 08/18/22 Potassium Citrate 1,620 mg PO DAILY 06/26/20 08/18/22 Tamsulosin HCl [Flomax] 0.4 mg PO DAILY 06/26/20 08/18/22 dilTIAZem HCL [Diltiazem 24Hr ER 180 mg PO DAILY 06/26/20 08/18/22 (Xr)] Aspirin EC [Ecotrin] 81 mg PO DAILY 04/17/21 08/18/22 DULoxetine [Cymbalta] 90 mg PO DAILY 04/17/21 08/18/22 Dulaglutide [Trulicity] 1.5 mg SUBQ Q7D 04/17/21 08/18/22 Metformin HCl [Metformin ER 1,000 mg PO BID 04/17/21 08/18/22 Gastric] Ranolazine [Ranolazine ER] 1,000 mg PO BID 04/17/21 08/18/22 Topiramate 50 mg PO BID 04/17/21 08/18/22 Amox/Clav 875/125 [Augmentin] 1 each PO Q12H #14 tablet 04/19/22 08/18/22 HYDROcod/ACETAM 5/325 [[place] 5/325] 1 tablet PO Q6H PRN #12 tablet 04/20/22 08/18/22 Cyclobenzaprine [Flexeril] 10 mg PO TID PRN #20 tablet 08/18/22 HYDROcod/ACETAM 5/325 [[place] 5/325] 1 - 2 tablet PO Q6H PRN #14 tablet 08/18/22 - Allergies Allergies/Adverse Reactions: Allergies Allergy/AdvReac Type Severity Reaction Status Date / Time carvedilol Allergy Unknown Verified 08/18/22 07:03 - Social History Does the pt smoke?: No Smoking Status: Never smoker Does the pt drink ETOH?: No Does the pt have substance abuse?: No - Immunizations Immunizations are current?: Yes - POLST Patient has POLST: No POLST Status: Full Code PD ED PE NORMAL - Vitals Vital signs reviewed: Yes (normal ) - General General: Alert and oriented X 3, No acute distress, Well developed/nourished - HEENT HEENT: Atraumatic, PERRL, EOMI - Neck Neck: Supple, no meningeal sign, No bony TTP - Cardiac Cardiac: RRR, No murmur - Respiratory Respiratory: No respiratory distress, Clear bilaterally - Abdomen Abdomen: Normal bowel sounds, Soft, Non tender, Non distended, No organomegaly - Back Back: No CVA TTP, No spinal TTP, Other (Mild paraspinous muscle tenderness to the left lower lumbar paraspinous muscles extending into the sciatic notch on the left side) - Derm Derm: Normal color, Warm and dry, No rash - Extremities Extremities: No deformity, No edema - Neuro Neuro: Alert and oriented X 3, firefighter 2-12 intact, No motor deficit, Normal speech Eye Opening: Spontaneous Motor: Obeys Commands Verbal: Oriented GCS Score: 15 - Psych Psych: Normal mood, Normal affect Results - Vitals Vitals: Vital Signs - 24 hr 08/18/22 08/18/22 06:50 08:52 Temperature 36.2 C L 36.3 C L Heart Rate 83 81 Respiratory 18 16 Rate Blood Pressure 111/65 115/62 O2 Saturation 99 99 Oxygen O2 Source Room air Procedures - IVC sono (time) 0077 Bedside IVC sono: IVC measures (cm) (1.28), Dehydration (mild <1 liter) PD Medical Decision Making - ED course Complexity details: reviewed old records, reviewed results, re-evaluated patient, considered differential, d/w patient ED course: 62-year-old male with a history of lumbar disc disease has exacerbation of back pain with symptoms of sciatica. He is administered dexamethasone and Toradol here in the emergency department we will place him on some pain medication a muscle relaxant. Departure - Departure Disposition: 01 Home, Self Care Clinical Impression: Sciatica Qualifiers: Laterality: left Qualified Code(s): M54.32 - Sciatica, left side Condition: Stable Instructions: ED Sciatica Follow-Up: ARNULFO SHABAZZ DO [Primary Care Provider] - Prescriptions: Cyclobenzaprine [Flexeril] 10 mg PO TID PRN #20 tablet PRN Reason: Spasms HYDROcod/ACETAM 5/325 [[place] 5/325] 1 - 2 tablet PO Q6H PRN #14 tablet PRN Reason: Pain Comments: Jagdeep, today it looks like you have back pain associated with a pinched nerve. We have given you a dose of dexamethasone to shrink swollen tissues. This is a steroid and this may interfere with your diabetes. Be vigilant about your blood sugars and your fluid intake. I have E scribed some pain medication and muscle relaxant to the [facility] in [place]. Our expectations with treatment are resolution of your symptoms over the next 2 to 5 days. Persistence of pain without improvement is a reason to consider advanced imaging and usually this is delayed about 1 month from the onset of symptoms. Normally the symptoms will resolve and imaging is not needed. Discharge Date/Time: 08/18/22 08:52
[2022-08-18] MEDS ORDERED: DEXAMETHASONE 10 MG/ML VIAL PO STA (07:50)
[2022-08-18] MEDS ORDERED: KETOROLAC 30 MG/ML VIAL IM STA (07:50)
[2022-08-18] MEDS ORDERED: CHERRY SYRUP 10 ML UDC PO ONE (07:50)
[2022-08-18 08:53] VITALS: BP 115/62
== END 2022-08-18 08:52 | disposition home or self-care (01) ==
LOC: ED 06:43
DX: M54.32 Sciatica, left side (principal); E11.9 Type 2 diabetes mellitus without complications; Z79.85 Long-term (current) use of injectable non-insulin antidiabetic drugs; I10 Essential (primary) hypertension; I48.91 Unspecified atrial fibrillation; Z79.01 Long term (current) use of anticoagulants
CPT/HCPCS: 96372; 99283; A9270

== ENCOUNTER 2022-09-24 08:35 | Outpatient (CLI) | payer OTHER ==
--- NOTE | 2022-09-24 09:39 | SLEEP CARE CONSULTATION ---
Information from patient questionnaire entered by Lili Kinney. I have reviewed and concur with the information entered by Lili Kinney. This document represents the service I personally performed and the decisions made by , Thelma Sanon ARNP. History of Present Illness Service Date and Time: 09/24/2022 0835 Previous diagnosis: Mild, Obstructive Sleep Apnea-Hypopnea Syndrome AHI: 13.7 (in 2019 (34.7 in 2012)) Reason for follow up: three month (F/U) Equipment type: CPAP ([place] Dreamstation 2) Equipment obtained from: Other ([facility]; getting supplies) Mask style: Nasal Backup mask available: Yes (old mask) Last cushion change: 1.5 weeks Prior sleep studies: Yes Year and Where[facility] additional information: KRYSTIAN ADEN was diagnosed to have mild, AHI 13.7, obstructive sleep apnea-hypopnea syndrome and returned today for CPAP therapy three month follow- up. Sleep Study - Results Prior sleep studies: Yes Year and Where: 2012 [facility] CPAP Compliance Data - Data Reviewed with Patient Average duration of nightly device use: 7 HRS 4 MINS 8 SECS Compliance rate %: 82.2 (06/24/22-09/21/22; 75/90 days used) Current pressure setting (cmH2O): 7-10 Average residual AHI: 5.2 (3.7 in last 30 days) Central apnea: 0.3 Obstructive apnea: 0.5 Hypopnea: 4.4 Average large leak: secs Subjective Missed days of use due to: reports: other (condensation in mask and sinus infection) Patient concerns: reports: condensation in mask/hose, nasal congestion. denies: aerophagia, mask discomfort, air blowing in eyes, mask leak noise, dry mouth, nose, throat, epistaxis Observed to snore while using device: No Current pressure setting perceived as: comfortable On therapy, patient: reports: sleeping better, awakening more refreshed, being more awake and alert during the day, more rested overall. denies: drowsiness while driving Initial [place] Sleepiness Scale score: 19 Current [place] Sleepiness Scale score: 13 Allergies and Home Medications Known drug allergies: Yes (carvedilol) Drug allergies reviewed: Yes Home medication list reviewed: Yes (no changes) Allergy and home medication list: Allergies carvedilol Allergy (Verified 09/23/22 11:03) Unknown Review of Systems Review of systems same as previous: Yes (no changes) Physical Exam Vital signs obtained and entered by: Thelma Francois NP Blood Pressure: 124/80 Cuff size: wrist (left) Heart Rate: 78 O2 Saturation: 99 Height: 5 ft 9 in Weight: 200 lb 6.4 oz Weight change since last visit: 1 lb loss Body Mass Index: 29.5 BMI Classification: Overweight Impression and Plan 1. Obstructive Sleep Apnea-Hypopnea Syndrome, mild (severe in 2013), with good treatment compliance and good apnea control. On CPAP therapy, the patient has better sleep quality and is more rested overall. He is still getting condensation in his mask. He has had a sinus infection and he had to stop using the CPAP for a few days because of the moisture. I adjusted his humidity from 3 to 2 and advised him that we can go further down if he is still getting the condensation buildup. He voiced understanding. Patient's apnea severity and rationale for treatment to reduce apnea, improve sleep quality and reduce cardiovascular and cerebrovascular events was reviewed. I also reviewed the benefit of consistent device use of CPAP for hypertension, cardiac disease, cerebrovascular disease, diabetes, depression and anxiety. 2. Overweight, unspecified. Currently patients BMI is 29.5. Obesity increases the risk of apnea, CPAP pressure requirements and overall health risks especially cardiovascular and diabetes. Thus patient is advised to lose weight. * Continue auto CPAP pressure at 7-10 cmH2O * Notify me if snoring with mask or feeling that the pressure is too much or too little * Attempt to lose weight * Call this office if any problems using CPAP * Return for follow up in 1 year, or sooner if concerns arise Counseling Topics: Spare mask, Weight loss health impact Visit Type: In Office Time Spent with Patient (minutes): 20 Provider Statement: I spent 100% of the Face to Face Visit with the patient with greater than 50% spent counseling the patient and coordination of care.
[2022-09-24 09:41] VITALS: BP 124/80
== END 2022-09-24 08:36 | disposition home or self-care (01) ==
LOC: SC 08:35
PROVIDERS: ATTEND Nurse Practitioner Family
DX: G47.33 Obstructive sleep apnea (adult) (pediatric) (principal); E66.3 Overweight; Z68.29 Body mass index [BMI] 29.0-29.9, adult
CPT/HCPCS: 99212; 99213

== ENCOUNTER 2022-12-02 17:43 | Emergency (ER) | payer OTHER ==
[2022-12-02] MEDS ORDERED: SODIUM CHLORIDE 0.9% 1,000 ML IV STA (17:58)
[2022-12-02 18:05] LABS: BASOPHILS % (AUTO) 0.4 %; EOSINOPHILS # (AUTO) 0.1 10^3/uL (0.0-0.7); HCT - HEMATOCRIT 36.2 % (42.0-52.0); HGB - HEMOGLOBIN 11.8 g/dL (14.0-18.0); LYMPHOCYTES # (AUTO) 1.6 10^3/uL (1.5-3.5); LYMPHOCYTES % (AUTO) 22.5 %; MEAN CORPUSCULAR HEMOGLOBIN 31.7 pg (27.0-31.0); MEAN CORPUSCULAR HGB CONC 32.6 g/dL (32.0-36.0); MEAN CORPUSCULAR VOLUME 97.3 fL (80.0-94.0); MEAN PLATELET VOLUME 10.9 fL (7.4-11.4); MONOCYTES # (AUTO) 0.5 10^3/uL (0.0-1.0); MONOCYTES % (AUTO) 7.2 %; NEUTROPHILS # (AUTO) 4.8 10^3/uL (1.5-6.6); NEUTROPHILS % (AUTO) 67.6 %; PLT - PLATELET COUNT 235 10^3/uL (130-450); RED BLOOD COUNT 3.72 10^6/uL (4.70-6.10); RED CELL DISTRIBUTION WIDTH 13.1 % (12.0-15.0); WHITE BLOOD COUNT 7.1 x10^3/uL (4.8-10.8)
[2022-12-02 18:16] LABS: BILIRUBIN,URINE NEGATIVE (NEGATIVE); GLUCOSE, URINE (UA) NEGATIVE (NEGATIVE); KETONES,URINE (UA) NEGATIVE (NEGATIVE); LEUKOCYTE ESTERASE, URINE NEGATIVE (NEGATIVE); NITRITE,URINE NEGATIVE (NEGATIVE); OCCULT BLOOD,URINE LARGE (NEGATIVE); PROTEIN,URINE 100 mg/dL (NEGATIVE); UROBILINOGEN,URINE 0.2 (NORMAL) E.U./dL (NORMAL)
--- NOTE | 2022-12-02 18:16 | ED Physician Documentation ---
History of Present Illness - Stated complaint Stated Complaint: BLOOD IN URINE - Chief complaint Chief Complaint: General - Additonal information Additional information: 62-year-old male who has a history of known urolithiasis, A-fib anticoagulated on Eliquis presents to the emergency department for evaluation of hematuria that began about 3 days ago. He reports he woke up in the middle of the night and felt like someone was kicking him and both his kidneys. Since then he has had progressively red urine. He denies pain with urination or pain in the anterior abdomen. No difficulty initiating the urine stream. No fevers Did require apparent lithotripsy several years ago for urolithiasis at [facility]. Review of Systems Constitutional: denies: Fever Cardiac: reports: Reviewed and negative Respiratory: reports: Reviewed and negative GI: reports: Reviewed and negative : reports: Hematuria. denies: Dysuria Skin: reports: Reviewed and negative Musculoskeletal: reports: Reviewed and negative PD PAST MEDICAL HISTORY - Past Medical History Cardiovascular: Hypertension, High cholesterol, Coronary artery disease, [place], Atrial fibrillation Respiratory: None Neuro: CVA Endocrine/Autoimmune: Type 2 diabetes GI: GERD : Kidney stones HEENT: None Psych: Depression, Anxiety, Post traumatic stress disorder Musculoskeletal: None Derm: None - Past Surgical History Past Surgical History: Yes Cardiovascular: CABG, Coronary stent - Present Medications Home Medications: Ambulatory Orders Medication Instructions Recorded Confirmed Apixaban [Eliquis] 5 mg PO BID 06/26/20 08/18/22 Atorvastatin Calcium [Lipitor] 80 mg PO QPM 06/26/20 08/18/22 Isosorbide Mononitrate [Isosorbide 30 mg PO DAILY 06/26/20 08/18/22 Mononitrate ER] Loratadine [Allergy Relief] 10 mg PO BID 06/26/20 08/18/22 Losartan [Cozaar] 50 mg PO DAILY 06/26/20 08/18/22 Multivitamin 1 tab PO DAILY 06/26/20 08/18/22 Nitroglycerin [Nitrostat] 0.4 mg PO Q5M PRN 06/26/20 08/18/22 Pantoprazole [Protonix] 40 mg PO QDAC 06/26/20 08/18/22 Potassium Citrate 1,620 mg PO DAILY 06/26/20 08/18/22 Tamsulosin HCl [Flomax] 0.4 mg PO DAILY 06/26/20 08/18/22 dilTIAZem HCL [Diltiazem 24Hr ER 180 mg PO DAILY 06/26/20 08/18/22 (Xr)] Aspirin EC [Ecotrin] 81 mg PO DAILY 04/17/21 08/18/22 DULoxetine [Cymbalta] 90 mg PO DAILY 04/17/21 08/18/22 Dulaglutide [Trulicity] 1.5 mg SUBQ Q7D 04/17/21 08/18/22 Metformin HCl [Metformin ER 1,000 mg PO BID 04/17/21 08/18/22 Gastric] Ranolazine [Ranolazine ER] 1,000 mg PO BID 04/17/21 08/18/22 Topiramate 50 mg PO BID 04/17/21 08/18/22 Amox/Clav 875/125 [Augmentin] 1 each PO Q12H #14 tablet 04/19/22 08/18/22 HYDROcod/ACETAM 5/325 [[place] 5/325] 1 tablet PO Q6H PRN #12 tablet 04/20/22 08/18/22 Cyclobenzaprine [Flexeril] 10 mg PO TID PRN #20 tablet 08/18/22 HYDROcod/ACETAM 5/325 [[place] 5/325] 1 - 2 tablet PO Q6H PRN #14 tablet 08/18/22 - Allergies Allergies/Adverse Reactions: Allergies Allergy/AdvReac Type Severity Reaction Status Date / Time carvedilol Allergy Unknown Verified 12/02/22 17:46 - Social History Does the pt smoke?: No Smoking Status: Never smoker Does the pt drink ETOH?: No Does the pt have substance abuse?: No - Immunizations Immunizations are current?: Yes - POLST Patient has POLST: No POLST Status: Full Code PD ED PE NORMAL - General General: Alert and oriented X 3, No acute distress - HEENT HEENT: Atraumatic, Moist mucous membranes - Neck Neck: Supple, no meningeal sign, No adenopathy - Cardiac Cardiac: RRR - Respiratory Respiratory: No respiratory distress, Clear bilaterally - Abdomen Abdomen: Normal bowel sounds, Soft, Non tender - Derm Derm: Normal color, Warm and dry, No rash - Neuro Neuro: Alert and oriented X 3, quality lead 2-12 intact Eye Opening: Spontaneous Motor: Obeys Commands Verbal: Oriented GCS Score: 15 Results - Vitals Vitals: Vital Signs - 24 hr 12/02/22 12/02/22 17:46 19:50 Temperature 36.5 C 36.7 C Heart Rate 83 81 Respiratory 16 18 Rate Blood Pressure 136/68 H 134/65 H O2 Saturation 98 99 Oxygen O2 Source Room air - Labs Labs: Laboratory Tests 12/02/22 12/02/22 12/02/22 17:53 17:59 17:59 WBC 7.1 RBC 3.72 L Hgb 11.8 L Hct 36.2 L MCV 97.3 H MCH 31.7 H MCHC 32.6 RDW 13.1 Plt Count 235 MPV 10.9 Neut # (Auto) 4.8 Lymph # (Auto) 1.6 Lyman # (Auto) 0.5 Eos # (Auto) 0.1 Baso # (Auto) 0.0 Absolute Nucleated RBC 0.00 Nucleated RBC % 0.0 PT INR Sodium 137 Potassium 3.8 Chloride 110 Carbon Dioxide 20 L Anion Gap 7.0 BUN 16 Creatinine 1.2 Estimated GFR (MDRD) 61 L Glucose 210 H Calcium 9.1 Total Bilirubin 0.4 AST 15 ALT 32 Alkaline Phosphatase 75 Total Protein 6.6 Albumin 4.1 Globulin 2.5 Albumin/Globulin Ratio 1.6 Lipase 30 Urine Color RED/BLOODY Urine Clarity CLOUDY Urine pH 5.0 Ur Specific [place] 1.015 Urine Protein 100 H Urine Glucose (UA) NEGATIVE Urine Ketones NEGATIVE Urine Occult Blood LARGE H Urine Nitrite NEGATIVE Urine Bilirubin NEGATIVE Urine Urobilinogen 0.2 (NORMAL) Ur Leukocyte Esterase NEGATIVE Urine RBC TNTC H Urine WBC 0-3 Ur Squamous Epith Cells NONE SEEN Amorphous Sediment Few Urine Bacteria None Seen Urine Mucus Few Strands Ur Microscopic Review INDICATED Urine Culture Comments NOT INDICATED 12/02/22 17:59 WBC RBC Hgb Hct MCV MCH MCHC RDW Plt Count MPV Neut # (Auto) Lymph # (Auto) Lyman # (Auto) Eos # (Auto) Baso # (Auto) Absolute Nucleated RBC Nucleated RBC % PT 14.0 H INR 1.3 H Sodium Potassium Chloride Carbon Dioxide Anion Gap BUN Creatinine Estimated GFR (MDRD) Glucose Calcium Total Bilirubin AST ALT Alkaline Phosphatase Total Protein Albumin Globulin Albumin/Globulin Ratio Lipase Urine Color Urine Clarity Urine pH Ur Specific [place] Urine Protein Urine Glucose (UA) Urine Ketones Urine Occult Blood Urine Nitrite Urine Bilirubin Urine Urobilinogen Ur Leukocyte Esterase Urine RBC Urine WBC Ur Squamous Epith Cells Amorphous Sediment Urine Bacteria Urine Mucus Ur Microscopic Review Urine Culture Comments - Rads (name of study) IVP Relevant Findings:: Final report received (Limited evaluation for renal stones due to absence of noncontrast images. No hydronephrosis or suspicious filling defects within the renal collecting systems. No discrete renal mass.) PD Medical Decision Making - ED course Complexity details: reviewed results, re-evaluated patient, considered differential, d/w patient, d/w family ED course: 62-year-old male who has a past medical history of atrial fibrillation anticoagulated on Eliquis as well as previous renal colic presents emergency department for evaluation of 2 days essentially painless hematuria. On presentation to the emergency department he is alert and well-appearing. No abdominal or flank CVA tenderness was elicited. We did initially obtain CBC, PT/INR, chemistry panel and urinalysis. Per my interpretation patient does have a mild anemia with a hemoglobin of 11.8. Most recent in our system shows a hemoglobin of 13.1. No leukocytosis. His chemistry reveals normal renal function urinalysis was positive for gross hematuria but no secondary findings suggest infection. Subsequently an IVP was ordered for evaluation of source of hematuria. Unfortunately due to absence of noncontrast images, there was limited evaluation for renal stones. However there was no obvious filling defects findings of hydronephrosis or renal mass. Subsequently I spoke with the patient his at the bedside about the laboratory and CT imaging findings. Without an obvious source for bleeding the question remains if this could be secondary to anticoagulation/Eliquis. Patient reports that he has good follow-up with Dr. 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 He stated to me that he would stop taking the Eliquis and follow closely with both of these providers in the next week. I discussed with patient the usual emergent return precautions for concerns of worsening bleeding, urinary obstruction, abdominal pain fevers and chest pain. Departure - Departure Disposition: 01 Home, Self Care Clinical Impression: History of atrial fibrillation, Anticoagulated, History of kidney stones Hematuria Qualifiers: Hematuria type: gross Qualified Code(s): R31.0 - Gross hematuria Condition: Stable Record reviewed to determine appropriate education?: Yes Follow-Up: RISA BRONSON MD [Primary Care Provider] - Thomas Coe MD [Physician No Access] - Comments: Jagdeep you are seen today in the emergency department because for 2 days you have been having blood in your urine. You do have a history of atrial fibrillation and are anticoagulated on Eliquis. You also have a history of kidney stones. Today your labs show a mild anemia with a hemoglobin of 11.1. Your kidney function was normal. We did do an intravenous pyelogram of your kidney system we were not able to see kidney stones because there were no noncontrast images completed. However there were no findings to suggest hydronephrosis, filling defects within the renal collecting system, kidney masses or mass within the bladder. At this time it is not clear what the cause of your bloody urine is. It could be due to a problem within the kidney and ureter system such as an undetected stone or even cancer. However it could also be a side effect of the Eliquis which you take for your atrial fibrillation. It is critical that you discuss this ED visit with both your furniture lumber production worker and urologist in the next few days. Stopping the Eliquis may improve the hematuria however it also increases your lifetime risk of stroke in atrial fibrillation. If at any point you find that your symptoms are worsening, you develop an inability to urinate or have a distended bladder, develop fevers have uncontrolled vomiting then please return immediately to the ER for repeat evaluation. Forms: PCP List
[2022-12-02 18:17] LABS: CLARITY,URINE CLOUDY (CLEAR)
[2022-12-02 18:19] LABS: INR 1.3 (0.8-1.2)
[2022-12-02 18:22] LABS: ALBUMIN 4.1 g/dL (3.2-5.5); ALBUMIN/GLOBULIN RATIO 1.6 (1.0-2.2); BILIRUBIN,TOTAL 0.4 mg/dL (0.2-1.0); CALCIUM 9.1 mg/dL (8.5-10.3); CREATININE 1.2 mg/dL (0.6-1.3); POTASSIUM 3.8 mmol/L (3.5-4.5); TOTAL PROTEIN 6.6 g/dL (6.4-8.9)
[2022-12-02 18:26] LABS: AMORPHOUS SEDIMENT,UR Few /LPF; BACTERIA,URINE None Seen /HPF (None Seen); MUCUS,URINE Few Strands; RBC,URINE TNTC /HPF (0-5); SQUAMOUS EPITHELIAL CELL,UR NONE SEEN (<= Few); WBC,URINE 0-3 /HPF (0-3)
[2022-12-02] MEDS ORDERED: iohexoL-300 100 ML VIAL IVP ONE (19:39)
[2022-12-02 20:02] VITALS: O2SAT 99
--- NOTE | 2022-12-02 20:22 | CT Report ---
PROCEDURE: IVP INDICATIONS: hematuria CONTRAST: omni 300 140ml TECHNIQUE: After the administration of intravenous contrast, 5 mm thick sections acquired from the diaphragms to the symphysis. 5 mm thick coronal and sagittal reformats were acquired. For radiation dose reducti on, the following was used: automated exposure control, adjustment of mA and/or kV according to yadiel ent size. Due to technical error, noncontrast images were not performed. COMPARISON: None. FINDINGS: Image quality: Diagnostic. Evaluation limited by absence of noncontrast images. Urinary system: Evaluation for renal stones is nondiagnostic due to the absence of noncontrast imagi ng. No hydronephrosis. Kidneys demonstrate symmetric enhancement without a discrete mass. There are a few right parapelvic renal cysts. The opacified renal collecting systems and ureters demonstrate no suspicious filling defects. Ureters are nondistended. The bladder is also partially opacified with no discrete masslike filling defects identified. Normal bladder wall thickness. OTHER Lung bases: Unremarkable. Heart: Heart is normal in size. ABDOMEN: Liver: No mass lesion. Gallbladder: Within normal limits without calcified gallstones. Biliary ducts: No biliary ductal dilatation. Pancreas: Unremarkable. Spleen: Normal in size. Adrenal Glands: No adrenal nodules. Stomach and Bowel: Stomach, small bowel loops, and colon are normal in caliber and wall thickness. T he appendix is normal. There is colonic diverticulosis without acute diverticulitis. Peritoneum: No abnormal intraperitoneal fluid. No free air. Ventral Wall: No hernia. Abdominal Nodes: No retroperitoneal or mesenteric adenopathy by size criteria. Vessels: Aorta and inferior vena cava are normal in size. PELVIS: Pelvic Organs: Unremarkable. Bladder: Unremarkable. Pelvic Nodes: No enlarged lymph nodes. Miscellaneous: No inguinal hernias. Bones: Visualized osseous structures demonstrate no suspicious lesions. IMPRESSION: 1. Limited evaluation for renal stones due to absence of noncontrast images. 2. No hydronephrosis or suspicious filling defects within the renal collecting systems. 3. No discrete renal mass. Reviewed by: Moe Hunter MD on 12/02/2022 8:20 PM PDT Approved by: Moe Hunter MD on 12/02/2022 8:20 PM PDT Station ID: [id number]
[2022-12-02 21:05] VITALS: BP 126/55
== END 2022-12-02 20:58 | disposition home or self-care (01) ==
LOC: ED 17:43
DX: R31.0 Gross hematuria (principal); I48.91 Unspecified atrial fibrillation; D64.9 Anemia, unspecified; Z79.01 Long term (current) use of anticoagulants; Z87.442 Personal history of urinary calculi
CPT/HCPCS: 36415; 74178; 80053; 81001; 83690; 85025; 85610; 96360; 99284; Q9967; 81003; 87086